=== PATIENT | female | born 1985 | race Caucasian/White ===

== ENCOUNTER 2024-01-05 22:26 | Emergency (ER) | payer BC, SELFPAY ==
[2024-01-05 22:29] VITALS: BP 186/117; PULSE 86; RESP 18; TEMP 36.6; BMI 79.5
--- NOTE | 2024-01-05 22:43 | ED_ITS ---
HPI - General Adult General Time Seen by Provider: 22:43 Date Seen: 01/05/24 Chief complaint: Unspecified Complaint, Adult Stated complaint: weak, high bp Time Seen by Provider: 01/05/24 22:42 Source: patient and RN notes reviewed Mode of arrival: ambulatory Limitations: no limitations History of Present Illness HPI narrative: This very pleasant 38-year-old female is coming in with elevated blood pressures at home currently in early . She is feeling weak, maybe feels a little short of breath. She was checking her blood pressures at home and they were 200 systolic. She has no headache, no chest pain, no neurologic changes. No edema noted. She does note that she had problems with her blood pressure at the end of other pregnancies. She has about 4-6 weeks reportedly. She saw her doctor this week, was given a prescription for labetalol, the pharmacy closed early tonight in she could not get it. She did not started earlier this week when it was prescribed. She does states that her blood pressures have been elevated outside of , before this . Related Data Home Medications Medication Instructions Recorded Confirmed bupropion HCl 150 mg 24 hr tablet, 300 mg PO DAILY 01/05/24 01/05/24 extended release labetalol 100 mg tablet 100 mg PO BID 01/05/24 01/05/24 sertraline 100 mg tablet 100 mg PO DAILY 01/05/24 01/05/24 Allergies Allergy/AdvReac Type Severity Reaction Status Date / Time No Known Drug Allergies Allergy Verified 01/05/24 22:33 Review of Systems Status of ROS: Reports: 6 or more systems reviewed and unremarkable except as noted in History and below PFSH PFSH Social History Smoking Status: Never smoker Do you use any of these nicotine containing products: None Non-prescribed substance use: denies use Exam Const: Vital Signs, click to edit/add: Vital Signs - 24 hr 01/05/24 22:29 01/05/24 22:44 01/05/24 22:45 Temperature 97.9 F Pulse Rate 85 80 Pulse Rate [Pulse Oximeter] 86 Respiratory Rate 18 Blood Pressure Blood Pressure [Ri ght Upper Arm] 186/117 H Pulse Oximetry 96 97 Oxygen Delivery Me thod Room Air 01/05/24 22:46 01/05/24 23:00 01/05/24 23:07 Temperature Pulse Rate 84 83 Pulse Rate [Pulse Oximeter] Respiratory Rate Blood Pressure 178/100 H Blood Pressure [Ri ght Upper Arm] Pulse Oximetry 97 96 97 Oxygen Delivery Me thod This is a 38-year-old female that is alert, interactive, no apparent distress, ambulatory into the ED of her own accord. Pupils equal round reactive to light sclera clear, extraocular muscles intact. Symmetrical facial function, speaking easily on room air. Neck supple, no adenopathy, no thyromegaly masses or nodules. Lungs are clear, good air entry, no wheezing or crackles, able speak in complete sentences, no tachypnea. CV regular rate and rhythm, no murmur, normal S1-S2, no S3-S4. Abdomen is soft, nontender, nondistended, no organomegaly. She has no lower extremity edema. Neurologic status is intact, normal motor and sensory throughout. Documenting provider has reviewed patient's vital signs: yes Course Course ED Course: The patient has chronic hypertension. We will give her a dose of oral labetalol 100 mg here. Will check an EKG, basic labs. She will need to get her labetalol filled and take this as prescribed. Reevaluation(s) Time of Reevaluation #1: 23:33 Reevaluation #1: Did review with patient that her hemoglobin is low at 10.2, will need to talk to her OB about this further. They may want supplemental iron and to follow this closer. We also reviewed that her potassium was mildly low at 3.2, will give her some effervescent potassium. Her potassium should probably be rechecked within the next week. We are just awaiting her troponin, if this comes back normal, will discharge to home. She does have the prescription for the labetalol, it is at [facility] just waiting to be picked up but the pharmacy was closed early tonight. Vital Signs Vital signs: Initial Vital Signs Temperature 97.9 F 01/05/24 22:29 Temperature Source Temporal Artery Scan 01/05/24 22: Pulse Rate 86 01/05/24 22:29 Pulse Rhythm Regular 01/05/24 22:29 Pulse Strength 3+ Normal 01/05/24 22:29 Respiratory Rate 18 01/05/24 22:29 Blood Pressure 186/117 H 01/05/24 22:29 Blood Pressure Mean 140 H 01/05/24 22:29 Oxygen Delivery Method Room Air 01/05/24 22:29 Vital Signs Temperature 97.9 F 01/05/24 22:29 Pulse Rate 86 01/05/24 22:29 Respiratory Rate 18 01/05/24 22:29 Blood Pressure 186/117 H 01/05/24 22:29 Oxygen Delivery Method Room Air 01/05/24 22:29 Temperature 97.9 F 01/05/24 22:29 Pulse Rate 83 01/05/24 23:07 Respiratory Rate 18 01/05/24 22:29 Blood Pressure 178/100 H 01/05/24 23:07 Pulse Oximetry 97 01/05/24 23:07 Oxygen Delivery Method Room Air 01/05/24 22:29 Medications Administered Medications: Generic Name Dose Route Start Last Admin Trade Name Freq PRN Reason Stop Dose Admin Labetalol HCl 100 mg 01/05/24 22:42 01/05/24 23:05 Labetalol Hcl 100 Mg Tablet PO 01/05/24 22:43 100 mg ONCE ONE Administration Potassium Bicarbonate 25 meq 01/05/24 23:36 01/05/24 23:42 Potassium Bicarb 25 Meq Effervescent Tab PO 01/05/24 23:37 25 meq ONCE ONE Administration Medical Decision Making Lab Data Lab results reviewed: Yes I reviewed the patient's lab results Labs: Lab Results 01/05/24 Range/Units 22:48 WBC 7.61 (4.50-11.00) K/uL RBC 4.39 (4.00-5.20) m/uL Hgb 10.2 L (12.0-16.0) gm/dL Hct 33.2 (33.0-51.0) % MCV 76 L (80-100) fL MCH 23 L (26-34) pg MCHC 31 L (32-36) gm/dL RDW Coeff of Brittanie 15.5 (11.5-15.5) % Plt Count 282 (140-440) K/uL Neut % (Auto) 72.0 (42.0-72.0) % Lymph % (Auto) 17.7 L (20-44) % [place] % (Auto) 8.9 (0.0-11.0) % Eos % (Auto) 0.8 (0.0-7.0) % Baso % (Auto) 0.3 (0.0-3.0) % Neut # (Auto) 5.48 (1.7-7.0) K/uL Lymph # (Auto) 1.30 (0.90-2.90) K/uL [place] # (Auto) 0.70 (0.00-0.90) K/UL Eos # (Auto) 0.06 (0.00-0.50) K/uL Baso # (Auto) 0.02 (0.00-0.30) K/uL Abs Immat Gran (auto) 0.02 (0.00-0.30) K/uL Imm/Tot Granulo (auto) 0.3 % Sodium 137 (135-149) mmol/L Potassium 3.2 L (3.6-5.1) mmol/L Chloride 106 (96-114) mmol/L Carbon Dioxide 23 (20-32) mmol/L Anion Gap 8 (7-15) mEq/L BUN 9 (5-24) mg/dL Creatinine 0.7 (0.5-1.5) mg/dL Estimated Creat Clear 93.17 Estimated GFR 113 ml/min Glucose 109 (60-115) mg/dL Calcium 9.0 (8.4-10.6) mg/dL Total Bilirubin 0.2 (0.1-1.5) mg/dL AST 18 (12-35) U/L ALT 14 (4-35) U/L Alkaline Phosphatase 65 (40-150) U/L Troponin I < 0.01 L (0.01-0.04) ng/mL Total Protein 7.7 (6.0-8.3) g/dL Albumin 4.2 (3.3-5.0) g/dL ECG Data Attestation: I personally reviewed and interpreted this ECG as follows: (Normal sinus rhythm, 80 beats per minute. No evidence of any ischemia or infarct. QT corrected 426 milliseconds.) Prior ECG tracings: not available for review Discharge Plan Discharge Clinical Impression: Chronic hypertension affecting , Hypokalemia Anemia Qualifiers: Anemia type: unspecified type Qualified Code(s): D64.9 - Anemia, unspecified Patient Disposition: Home, Self-Care Condition: Stable Instructions: Potassium Content of Foods List (ED), DASH Eating Plan (ED), Hypertension During (ED) Additional Instructions: Need to continue taking the labetalol, please pulp house supervisor at the pharmacy tomorrow. Have your remediation project engineer follow and increase labetalol if needed. You also need to talk to your remediation project engineer about her hemoglobin being 10.2. This will likely need further iron supplementation and closer following through . Your potassium was low at 3.2 here, would have this rechecked within the next 1-2 weeks in clinic. Activity Level: Activity as Tolerated Discharge Diet: Heart Healthy (2 gm sodium, low fat) Prescriptions: No Action sertraline 100 mg tablet 100 mg PO DAILY labetalol 100 mg tablet 100 mg PO BID bupropion HCl 150 mg tablet extended release 24 hr 300 mg PO DAILY Follow Up/Referrals: Kecia Segovia PA-C [Primary Care Provider] - Stand Alone Forms: JasonDB Info Instructions
[2024-01-05 22:44] VITALS: PULSE 85; O2SAT 96
[2024-01-05 22:45] VITALS: PULSE 80; O2SAT 97
[2024-01-05 22:46] VITALS: O2SAT 97
[2024-01-05 23:00] VITALS: PULSE 84; O2SAT 96
[2024-01-05 23:01] LABS: Basophils Absolute Auto 0.02 K/uL (0.00-0.30); Basophils Percent Auto 0.3 % (0.0-3.0); Eosinophils Absolute Auto 0.06 K/uL (0.00-0.50); Eosinophils Percent Auto 0.8 % (0.0-7.0); Hematocrit 33.2 % (33.0-51.0); Hemoglobin* 10.2 gm/dL (12.0-16.0); Immature Granulocytes Abs Auto 0.02 K/uL (0.00-0.30); Immature Granulocytes Pct Auto 0.3 %; Lymphocytes Percent Auto 17.7 % (20-44); Mean Corpuscular HGB Conc 31 gm/dL (32-36); Mean Corpuscular Hemoglobin 23 pg (26-34); Mean Corpuscular Volume 76 fL (80-100); Monocytes Percent Auto 8.9 % (0.0-11.0); Neutrophils Absolute Auto 5.48 K/uL (1.7-7.0); Platelet Count* 282 K/uL (140-440); RDW Coefficient of Variation % 15.5 % (11.5-15.5); Red Blood Count 4.39 m/uL (4.00-5.20); White Blood Count* 7.61 K/uL (4.50-11.00)
[2024-01-05 23:02] LABS: Slide Review Reflex No
[2024-01-05] MEDS: LABETALOL HCL 100 MG TABLET PO (23:05)
[2024-01-05 23:07] VITALS: BP 178/100; PULSE 83; O2SAT 97
[2024-01-05 23:15] LABS: Albumin* 4.2 g/dL (3.3-5.0); Chloride* 106 mmol/L (96-114); Sodium* 137 mmol/L (135-149)
[2024-01-05 23:16] LABS: Potassium* 3.2 mmol/L (3.6-5.1)
[2024-01-05 23:18] LABS: Alkaline Phosphatase* 65 U/L (40-150); Anion Gap 8 mEq/L (7-15); Aspartate Amino Transferase* 18 U/L (12-35); Bilirubin Total* 0.2 mg/dL (0.1-1.5); Blood Urea Nitrogen* 9 mg/dL (5-24); Carbon Dioxide* 23 mmol/L (20-32); Creatinine* 0.7 mg/dL (0.5-1.5); Est. Creatinine Clearance* 93.17; Estimated Glomerular Filt Rate 113 ml/min; Total Protein* 7.7 g/dL (6.0-8.3)
[2024-01-05 23:19] LABS: Alanine Aminotransferase* 14 U/L (4-35); Glucose* 109 mg/dL (60-115)
[2024-01-05 23:33] LABS: Troponin I* < 0.01 ng/mL (0.01-0.04)
[2024-01-05] MEDS: POTASSIUM BICARB 25 MEQ EFFERVESCENT TAB PO (23:42)
== END 2024-01-06 | disposition home or self-care (01) ==
PROVIDERS: Emergency Provider Family Medicine; PCP Student in an Organized Health Care Education/Training Program
DX: O16.1 Unspecified maternal hypertension, first trimester (principal); E87.5 Hyperkalemia
CPT/HCPCS: 36415; 80053; 84484; 85025; 93005; 94761; 99284; A9270

== ENCOUNTER 2024-01-31 12:31 | Outpatient (CLI) | payer BC, SELFPAY ==
--- NOTE | 2024-01-31 12:15 | US_ITS ---
Patient: SAMMIE CASTELLANO Facility:?[facility] Patient ID:?[id number] Site Patient ID:?[id number]. Site :?1985 Study:?US-OB Pelvis TV OB<14wks-01/31/2024 1:30:20 PM Ordering Physician:?aldo Final Report: OB ULTRASOUND INDICATION: Dates and viability. LMP: 11/24/2023. SARAH by LMP: 08/30/2024. GA: 9 w, 5 d. Previous US: No. CRL: 4.9 cm. 11 w 4 d. SARAH: 08/17/2024. FHR: 169 BPM. Gestational sac: 6.5 cm. Yolk sac: 5.6 mm. Right ovary: Within normal limits. 2.8 x 1.4 x 1.4 cm. Left ovary: Within normal limits. 1.9 x 1.1 x 1.4 cm. IMPRESSION: 1. Single viable intrauterine . 2. Measurements are two weeks earlier than clinical dates. Nick Smith M.D. Body/Diagnostic Radiologist [email or web address] TRACEE/luci D& Transcribed: 10:13 ashade verma/Dictated by: Nick Smith MD @ 02/01/2024 8:24:00 AM Signed by:?iNck Smith MD @02/01/2024 4:46:28 PM (Electronic Signature)
== END 2024-01-31 12:32 | disposition home or self-care (01) ==
LOC: US 12:32
PROVIDERS: PCP Student in an Organized Health Care Education/Training Program; Visit Provider Registered Nurse
DX: Z34.91 Encounter for supervision of normal pregnancy, unspecified, first trimester (principal); Z3A.09 9 weeks gestation of pregnancy
CPT/HCPCS: 76817; 82565; 82570; 82728; 83540; 83550; 84156; 84450; 84460; 84520; 84550; 86592; 86703; 86704; 86706; 86762; 86787; 86803; 86850; 86900; 86901; 87086; 87340; 87491; 87591

== ENCOUNTER 2024-02-22 07:00 | Outpatient (CLI) | payer BC, SELFPAY | END 2024-02-22 07:01 | disposition home or self-care (01) | LOC: NFLDREF 02-23 06:45 | PROVIDERS: PCP Student in an Organized Health Care Education/Training Program; Referring Provider Student in an Organized Health Care Education/Training Program; Visit Provider Registered Nurse | DX: O12.12 Gestational proteinuria, second trimester (principal); Z3A.15 15 weeks gestation of pregnancy | CPT/HCPCS: 82570; 84156 ==

== ENCOUNTER 2024-05-09 13:00 | Outpatient (RCR) | payer BC, SELFPAY ==
--- NOTE | 2024-04-25 11:24 | URNOTE ---
Per Availity/predictal, prior auth is not required for [facility] ([id number]). ref #[id number]
--- NOTE | 2024-04-30 13:30 | PC.NURSE ---
Diagnosis: Iron Deficiency Anemia in
[2024-04-30 13:31] VITALS: BP 108/70; PULSE 78; RESP 18; TEMP 36.6; O2SAT 97
[2024-04-30] MEDS: SODIUM CHLORIDE 0.9 % (FLUSH) 10 ML SYRINGE IVF (13:50)
[2024-04-30] MEDS: 0.9 % SODIUM CHLORIDE 250 ml IV (13:50)
[2024-04-30] MEDS: IRON SUCROSE COMPLEX 200 MG in 0.9 % SODIUM CHLORIDE 100 ml 100 ML 440 MG IVPB (13:54)
[2024-04-30 14:12] VITALS: BP 101/63; PULSE 77; RESP 16; O2SAT 96
[2024-04-30 14:46] VITALS: BP 112/72; PULSE 80; O2SAT 96
[2024-05-02 13:46] VITALS: BP 115/72; PULSE 88; RESP 16; TEMP 36.4; O2SAT 95
[2024-05-02] MEDS: SODIUM CHLORIDE 0.9 % (FLUSH) 10 ML SYRINGE IVF (14:00)
[2024-05-02] MEDS: 0.9 % SODIUM CHLORIDE 250 ml IV (14:01)
[2024-05-02] MEDS: IRON SUCROSE COMPLEX 200 MG in 0.9 % SODIUM CHLORIDE 100 ml 100 ML 440 MG IVPB (14:11)
[2024-05-02 14:28] VITALS: BP 111/61; PULSE 79
[2024-05-04 13:30] VITALS: BP 121/81; PULSE 76; RESP 16; TEMP 36.4; O2SAT 95
[2024-05-04] MEDS: SODIUM CHLORIDE 0.9 % (FLUSH) 10 ML SYRINGE IVF (13:47)
[2024-05-04] MEDS: 0.9 % SODIUM CHLORIDE 250 ml IV (13:48)
[2024-05-04] MEDS: IRON SUCROSE COMPLEX 200 MG in 0.9 % SODIUM CHLORIDE 100 ml 100 ML 440 MG IVPB (13:51)
[2024-05-04 14:11] VITALS: BP 111/74; PULSE 79; RESP 16; TEMP 36.4; O2SAT 95
[2024-05-04 14:45] VITALS: BP 109/72; PULSE 74; RESP 14; TEMP 36.3; O2SAT 98
[2024-05-07 14:05] VITALS: BP 109/72; PULSE 77; RESP 18; TEMP 36.8; O2SAT 97
[2024-05-07] MEDS: 0.9 % SODIUM CHLORIDE 250 ml IV (14:25)
[2024-05-07] MEDS: SODIUM CHLORIDE 0.9 % (FLUSH) 10 ML SYRINGE IVF (14:25)
[2024-05-07] MEDS: IRON SUCROSE COMPLEX 200 MG in 0.9 % SODIUM CHLORIDE 100 ml 100 ML 440 MG IVPB (14:25)
[2024-05-07 14:47] VITALS: BP 107/80; PULSE 80; RESP 16; TEMP 36.5; O2SAT 98
[2024-05-07 15:25] VITALS: BP 101/66; PULSE 71; RESP 18; TEMP 36.9; O2SAT 94
[2024-05-09 12:52] VITALS: BP 111/72; PULSE 85; TEMP 36.3; O2SAT 96
[2024-05-09 12:59] VITALS: BP 111/72; PULSE 85; TEMP 36.3; O2SAT 96
[2024-05-09] MEDS: IRON SUCROSE COMPLEX 200 MG in 0.9 % SODIUM CHLORIDE 100 ml 100 ML 440 MG IVPB (13:21)
[2024-05-09 13:40] VITALS: BP 105/69; PULSE 79; RESP 16; TEMP 36.5; O2SAT 96
[2024-05-09 14:15] VITALS: BP 107/68; PULSE 78; RESP 16; TEMP 36.6; O2SAT 98
== END 2024-10-27 23:59 | disposition home or self-care (01) ==
LOC: CCIC 13:00
PROVIDERS: PCP Student in an Organized Health Care Education/Training Program; Visit Provider Clinical Nurse Specialist
DX: O99.019 Anemia complicating pregnancy, unspecified trimester (principal); D50.9 Iron deficiency anemia, unspecified
CPT/HCPCS: 96365; 96374; J1756; J7050

== ENCOUNTER 2024-05-15 09:15 | Outpatient (CLI) | payer BC, SELFPAY | END 2024-05-15 09:16 | disposition home or self-care (01) | LOC: NFLDREF 05-16 10:33 | PROVIDERS: PCP Student in an Organized Health Care Education/Training Program; Referring Provider Student in an Organized Health Care Education/Training Program; Visit Provider Internal Medicine Nephrology | DX: O12.10 Gestational proteinuria, unspecified trimester (principal) | CPT/HCPCS: 82570; 84156 ==

== ENCOUNTER 2024-05-21 13:35 | Outpatient (CLI) | payer BC, SELFPAY | END 2024-05-21 13:36 | disposition home or self-care (01) | LOC: NFLDREF 05-24 10:44 | PROVIDERS: PCP Student in an Organized Health Care Education/Training Program; Referring Provider Student in an Organized Health Care Education/Training Program; Visit Provider Obstetrics & Gynecology | DX: Z34.82 Encounter for supervision of other normal pregnancy, second trimester (principal) | CPT/HCPCS: 86592 ==

== ENCOUNTER 2024-06-08 13:10 | Outpatient (CLI) | payer BC, SELFPAY | END 2024-06-08 13:11 | disposition home or self-care (01) | LOC: NFLDREF 06-10 06:17 | PROVIDERS: PCP Student in an Organized Health Care Education/Training Program; Referring Provider Student in an Organized Health Care Education/Training Program; Visit Provider Internal Medicine Nephrology | DX: O12.10 Gestational proteinuria, unspecified trimester (principal) | CPT/HCPCS: 80069; 87086 ==

== ENCOUNTER 2024-06-12 09:27 | Outpatient (CLI) | payer BC, SELFPAY | END 2024-06-12 09:28 | disposition home or self-care (01) | LOC: NFLDREF 06-15 07:28 | PROVIDERS: PCP Student in an Organized Health Care Education/Training Program; Referring Provider Student in an Organized Health Care Education/Training Program; Visit Provider Internal Medicine Nephrology | DX: O12.13 Gestational proteinuria, third trimester (principal); Z3A.29 29 weeks gestation of pregnancy | CPT/HCPCS: 82570; 84156 ==

== ENCOUNTER 2024-06-26 13:59 | Outpatient (CLI) | payer BC, SELFPAY ==
--- NOTE | 2024-06-26 14:00 | CRLHL7_ITS ---
For Patients: As a result of the Century Cures Act, medical imaging exams and procedure reports are released immediately into your electronic medical record. You may view this report before your referring provider. If you have questions, please contact your health care provider. INDICATION: BPP and Growth TECHNIQUE: Real time dotson scale imaging of the fetus was performed. COMPARISON: 01/31/2024 FINDINGS: Sonographic imaging demonstrates a single living intrauterine gestation. Fetus demonstrates a regular cardiac rate of 147 beats per minute. Fetus has a transverse position, head maternal right. The placenta lies anteriorly. Amniotic fluid volume appears normal and there is a single deepest pocket of 7.3 cm. The estimated weight is 2178gm which lies at the 70th %. BPD 95th percentile. HC 86th percentile. AC is 71st percentile. FL 42nd percentile. The fetus was active and demonstrated normal breathing movements. There was normal flexion and extension of the trunk and extremities. IMPRESSION: Normal biophysical profile score 8/8. Sonographic gestational age 34 weeks 0 days and a sonographic due date of 08/07/2024. Sonographic age 11 days ahead of the clinical age. Estimated weight 70th percentile. Abdominal circumference 71st percentile. Dictated by Ricky Clifford MD @ 06/27/2024 12:02:10 PM (Electronically Signed)
== END 2024-06-26 14:00 | disposition home or self-care (01) ==
LOC: US 13:59
PROVIDERS: PCP Student in an Organized Health Care Education/Training Program; Visit Provider Obstetrics & Gynecology
DX: O10.913 Unspecified pre-existing hypertension complicating pregnancy, third trimester (principal); Z3A.34 34 weeks gestation of pregnancy
CPT/HCPCS: 76816; 76819; 82565; 82570; 84156; 84450; 84460; 84520; 84550

== ENCOUNTER 2024-07-03 15:00 | Outpatient (CLI) | payer BC, SELFPAY ==
--- NOTE | 2024-07-03 14:45 | CRLHL7_ITS ---
For Patients: As a result of the Century Cures Act, medical imaging exams and procedure reports are released immediately into your electronic medical record. You may view this report before your referring provider. If you have questions, please contact your health care provider. INDICATION: Nonreactive NST TECHNIQUE: Ultrasound OB pelvis transabdominal. Real-time dotson-scale imaging of the fetus was performed without stress testing. COMPARISON: Ob ultrasound 06/26/2024 FINDINGS: heart rate: Regular, 155 bpm. position: Cephalic. Specific images for motion, tone and breathing movements were not saved. Amniotic fluid volume single deepest pocket 7.3 cm, 2/2. motion 2/2. tone 2/2. breathing movements 2/2. Anterior placenta. Cervix is closed. IMPRESSION: Cruz intrauterine with cardiac activity. Normal biophysical profile score of 8/8. Single deepest pocket measures 7.3 centimeters. Dictated by Reyna Mukherjee MD @ 07/05/2024 7:38:09 AM (Electronically Signed)
== END 2024-07-03 15:01 | disposition home or self-care (01) ==
PROVIDERS: PCP Student in an Organized Health Care Education/Training Program; Visit Provider Obstetrics & Gynecology
DX: O28.8 Other abnormal findings on antenatal screening of mother (principal)
CPT/HCPCS: 76819; 82565; 82570; 84156; 84450; 84460; 84520

== ENCOUNTER 2024-07-09 14:35 | Outpatient (CLI) | payer BC, SELFPAY ==
--- NOTE | 2024-07-09 14:45 | CRLHL7_ITS ---
For Patients: As a result of the Century Cures Act, medical imaging exams and procedure reports are released immediately into your electronic medical record. You may view this report before your referring provider. If you have questions, please contact your health care provider. INDICATION: Hypertension. COMPARISON: OB ultrasound 07/03/2024. TECHNIQUE: Ultrasound OB pelvis biophysical profile. Real time dotson scale imaging of the fetus was performed without non-stress testing. FINDINGS: Sonographic imaging demonstrates a single living intrauterine gestation. The fetus demonstrates a regular cardiac rate of 142 beats per minute. The fetus has a cephalic orientation. The placenta lies anteriorly. Single deepest pocket measures 5.8 cm (2/2). The fetus was active (2/2). There was normal flexion and extension of the trunk and extremities (2/2). The fetus demonstrated normal breathing movements (2/2). IMPRESSION: Normal biophysical profile score 8 out of 8. Dictated by Le Aleman MD @ 07/10/2024 2:49:54 AM (Electronically Signed)
== END 2024-07-09 14:36 | disposition home or self-care (01) ==
LOC: US 14:35
PROVIDERS: PCP Student in an Organized Health Care Education/Training Program; Visit Provider Obstetrics & Gynecology
DX: O99.213 Obesity complicating pregnancy, third trimester (principal); O10.913 Unspecified pre-existing hypertension complicating pregnancy, third trimester; Z3A.34 34 weeks gestation of pregnancy
CPT/HCPCS: 76819; 82565; 82570; 84156; 84450; 84460; 84520

== ENCOUNTER 2024-07-17 14:36 | Outpatient (CLI) | payer BC, SELFPAY ==
--- OUTSIDE RECORDS SUMMARY | 2024-07-17 14:48 | XMS_ITS | Encounter Summary ---
Author Organization [facility] Address [address] [place] [address] Care Team Providers Care Coordinator Of Health Services Name Role Phone Fior Mejia MD Unavailable Bee Vicente MD Primary Care Provider [phone] Bee Vicente MD Unavailable [phone] Flori De Luna MD Unavailable [phone] Kecia Segovia Primary Care Provider [phone] Encounter Details Date Type Department Care Team (Late st Contact Info) Description 02/03/2024 My[facility] Medical Advice [address] [address] Angelia Marte, WASTE TRANSPORTATION TECHNICIAN Social History Tobacco Use Types Packs/Day Years Used Date Smoking Tobacco: Never Smokeless Tobacco: Never Alcohol Use Standard Drinks/Week Comments Not Currently 0 (1 standard drink = 0.6 oz pur e alcohol) Social Connection and Isolat ion Panel [NHANES] Answer Date Recorded In a typical week, how many times do you talk on the phone with family, friends, or neighbors? More than three times a week 06/04/2022 How often do you get togethe r with friends or relatives? Once a week 06/04/2022 How often do you attend chur ch or muslim services? Never 06/04/2022 Do you belong to any clubs o r organizations such as holiness groups, unions, fraternal or athletic groups, or school groups? No 06/04/2022 Attends Club or Organization Meetings Not on mitchell e 06/04/2022 Are you , , di vorced, , never , or living with a partner? 06/04/2022 AUDIT-C Answer Date Recorded Q1: How often do you have a drink containing alcohol? Never 06/04/2022 Q2: How many drinks containi ng alcohol do you have on a typical day when you are drinking? Patient does not drink Q3: How often do you have si x or more drinks on one occasion? Never 06/04/2022 Overall Financial Resource Strain (CARDIA) Answe r Date Recorded How hard is it for you to pa y for the very basics like food, housing, medical care, and heating? Somewhat hard 06/04/2022 PHQ-2 Answer Date Recorded PHQ-2 Score 3 06/04/2022 [facility] - Occupational Stress Questionnaire Answer Date Recorded Do you feel stress - tense, restless, nervous, or anxious, or unable to sleep at night because your mind is troubled all the time - these days? Rather much 06/04/2022 Exercise Vital Sign Answer Date Recorde d On average, how many days pe r week do you engage in moderate to strenuous exercise (like a brisk walk)? 2 days 06/04/2022 On average, how many minutes do you engage in exercise at this level? 30 min 06/04/2022 Hunger Vital Sign Answer Date Recorded Within the past 12 months, y ou worried that your food would run out before you got the money to buy more. Never true 06/04/20 22 Within the past 12 months, t he food you bought just didn't last and you didn't have money to get more. Never true 06/04/2022 PRAPARE - Transportation Answer Date Re corded In the past 12 months, has l ack of transportation kept you from medical appointments or from getting medications? No 05/11 In the past 12 months, has l ack of transportation kept you from meetings, work, or from getting things needed for daily living? No 06/04/2022 Housing Stability Vital Sign Answer Oh e Recorded In the last 12 months, was t here a time when you were not able to pay the mortgage or rent on time? Yes 06/04/2022 In the last 12 months, how many places have you lived? 1 06/04/2022 In the last 12 months, was t here a time when you did not have a steady place to sleep or slept in a snf (including now)? No 06/04/2022 Adolescent Education Answer Date Record ed Getting School Help Needed Not on file 07/01 Sex and Gender Information Value Date Recorded Sex Assigned at Female 03/05/2021 2:58 PM CDT Gender Identity Female 03/05/2021 2:58 PM CDT Sexual Orientation Straight 03/05/2021 2: 58 PM CDT documented as of this encounter Plan of Treatment Not on file documented as of this encounter Visit Diagnoses Not on filedocumented in this encounter Additional Health Concerns Assessment Noted Time PHQ-9 Depression Total Score: 8 06/04/20 10:15 AM CDT documented as of this encounter Care Teams Coordinator Of Health Services Relationship Specialty [place] [address] [place] [address] PCP - General Family Medicine 04/16/22 03/16/24 Kecia Segovia PA [address] [place] [address] PCP - General 03/17/24 Fior Mejia MD [address] [place] [id number] Assigned OBGYN Provider 02/07/22 [place] [address] [place] [address] Assigned PCP 04/17/22 Flori De Luna MD [address] [place] [id number] Physician all source intelligence technician 01/09/24 documented as of this encounter
--- OUTSIDE RECORDS SUMMARY | 2024-07-17 14:48 | XMS_ITS | Encounter Summary ---
Author Organization [place] Address [address] [place] [address] Care Team Providers Care Retail Manager Name Role Phone Fior Mejia MD Unavailable Bee Vicente MD Unavailable [phone] Flori De Luna MD Unavailable [phone] Kecia Segovia Primary Care Provider [phone] Reason for Referral * Diagnostic Imaging Ultrasound (Routine) - Pending Review Specialty Diagnoses / Procedures Referred By Contac t Referred To Contact Radiology. Diagnoses Encounter for follow-up ultrasound of anatomy Procedures [facility] US Comprehensive Single F/U Jackie Cook MD [address] [facility] [employer] [address] [address] Referral ID Status Reason Start Date Expiration Date V isits Requested Visits Authorized [id number] Pending Review 03/22/2024 03/22/2025 1 1 Reason for Visit * Diagnostic Imaging Ultrasound (Routine) - Pending Review Specialty Diagnoses / Procedures Referred By Contac wilson Referred To Contact Radiology. Diagnoses Encounter for follow-up ultrasound of anatomy Procedures [facility] US Comprehensive Single F/U Jackie Cook MD [address] [place] [address] Referral ID Status Reason Start Date Expiration Date V isits Requested Visits Authorized [id number] Pending Review 03/22/2024 03/22/2025 1 1 Encounter Details Date Type Department Care Team (Latest Contact Info) Description 04/16/2024 8:45 AM CDT - 04/16/2024 11:59 PM CDT Hospital Encounter [facility] [address] [place] [address] Maxx Luu MD [address] [place] [address] [address] [place] [address] Encounter for follow-up ultrasound of anatomy Discharge Disposition: Home or Self Care Social History Tobacco Use Types Packs/Day Years [...] 06/04/2022 How often do you attend chur or islam services? Never 06/04/2022 Do you belong to any clubs o r organizations such as judaism groups, unions, fraternal or athletic groups, or [...] Answer Date Recorded PHQ-2 Score 3 06/04/2022 [facility] - Occupational Stress Questionnaire Answer Date Recorded [...] place to sleep or slept in a intermediate (including now)? No 06/04/2022 Adolescent Education Answer Date Record ed Getting School Help Needed Not on file 07/01 Estimated Date of Delivery Comme nts Yes 08/17/2024 Based on Ultraso und Sex and Gender Information Value Date Recorded Sex Assigned at Female 03/05/2021 2:58 PM CDT Gender Identity Female 03/05/2021 2:58 PM CDT Sexual Orientation Straight 03/05/2021 2: 58 PM CDT documented as of this encounter Medications at Time of Discharge Medication Sig Dispensed Refills Start Date End Date buPROPion (WELLBUTRIN XL) 150 MG 24 hr tabletIndications:KODY (generalized anxiety disorder) Take 1 tablet (150 mg) by mouth every morning 90 tablet 05/23/2023 labetalol (NORMODYNE) 100 MG tablet Take 100 mg by mouth 01/04/2024 Vit-Fe Fumarate-FA (PNV PLUS MULTIVITAMIN) 27-1 MG TABS per tablet Take 1 tablet by mouth daily sertraline (ZOLOFT) 100 MG tabletIndications:KODY (generalized anxiety disorder) Take 1 tablet (100 mg) by mouth daily 90 tablet 06/21/2023 documented as of this encounter Plan of Treatment Not on file documented as of this encounter Procedures Procedure Name Priority Date/Time Associated Diagnosis Comments [facility] US COMPREHENSIVE SINGLE F/U Routine 04/16/2024 9:20 AM CDT Encounter for follow-up ultrasound of anatomy documented in this encounter Results * [facility] US Comprehensive Single F/U (04/16/2024 9:20 AM CDT) Anatomical Region Laterality Modality Ultrasound 04/16/2024 8:43 AM CDT Impressions 04/16/2024 9:40 AM CDT IMPRESSION ----- 1. Cruz at 22w 3d gestational age. 2. The remaining anatomic survey was completed, no anomalies commonly detected by ultrasound were identified within the limits of ultrasound. 3. Growth parameters and estimated weight were consistent with gestational age predicted by assigned SARAH. 4. The amniotic fluid volume appeared normal. Narrative 04/16/2024 9:40 AM CDT ?Comp Follow Up ----- Pat. Name: SAMMIE LAFLEUR ? Study Date: ??04/16/2024 8:43am Pat. NO: ??[id number] ?Referring ??MD: AVIS ANGELO Site: ? Infrastructure Architect: Miriam Perla RDMS : ??1985 ?Age: ?? 39 ----- INDICATION ----- Reevaluate growth and suboptimal anatomy. AMA 39 years. Chronic hypertension on Labetalol. METHOD ----- Transabdominal ultrasound examination. View: Sufficient ----- Cruz . Number of fetuses: 1 DATING ----- ? Date ?Details ?Gest. age ?SARAH LMP ?11/24/2023 ?Cycle: LMP date uncertain ? 20 w + 4 d ? 08/30/2024 Previous U/S ?01/31/2024 ?GA, GA 11 w + 4 d ?22 w + 3 d ? 08/17/2024 U/S ? 04/16/2024 ?based upon AC, BPD, Femur, HC ? 22 w + 2 d ? 08/18/2024 Assigned dating ?based on ultrasound (GA), selected on 04/16/2024 ?22 w + 3 d ? 08/17/2024 GENERAL EVALUATION ----- Cardiac activity present. FHR 137 bpm. movements: present. Presentation: breech Placenta: anterior, no previa > 2 cm from internal os Umbilical cord: 3 vessel cord Amniotic fluid: Amount of AF: normal. MVP 6.0 cm BIOMETRY ----- BPD ? 54.8 ?mm ? 22w 5d ?[place]ell CABRERA ? 72.7 ?mm ? 22w 3d ?Nicolaides HC ? 204.5 ?mm ? 22w 4d ? Hadlock Cerebellum tr ?23.1 ?mm ? 21w 4d ? Nicolaides AC ? 173.2 ?mm ? 22w 2d ?36% ?Hadlock Femur ?36.6 ?mm ? 21w 4d ? Hadlock Weight Calculation: EFW ?473 ? g ? 26% ?Hadlock EFW (lb,oz) ?1 lb 1 ?oz EFW by ? Hadlock ([id number]) Head / Face / Neck Biometry: Fiberglass Autobody Repairer ?5.1 ? mm CM ? 4.1 ? mm ANATOMY ----- The following structures appear normal: Head / Neck ? Cranium. Head size. Head shape. Lateral ventricles. Midline falx. Cavum septi pellucidi. Cerebellum. Cisterna magna. Thalami. Face ? Lips. Profile. Nose. Heart / Thorax ?4-chamber view. RVOT view. LVOT view. 5-isnrpu-grmsutw view. Situs. Aortic arch view. Ductal arch view. ? Diaphragm. Abdomen ? Stomach. Kidneys. Bladder. Spine ?Cervical spine. Thoracic spine. Lumbar spine. Sacral spine. sex: male. MATERNAL STRUCTURES ----- Cervix ?Visualized ? Appearance: Appears Closed ? Approach - Transabdominal: Cervical length 50.1 mm Right Ovary ?Not examined Left Ovary ?Not examined RECOMMENDATION ----- Thank-you for referring your patient for ultrasound assessment. She is struggling with iron deficiency anemia which is not improving with oral iron. I encouraged her to discuss a possible iron infusion as an alternative, with her primary OB team. I discussed the findings on today's ultrasound with the patient. I reviewed the limitations of ultrasound. Further ultrasound studies will include serial growth and BPPs as previously recommended, and she plans to do these in [place]. Return to primary provider for continued care. If you have questions regarding today's evaluation or if we can be of further service, please contact the [facility]. anomalies may be present but not detected Procedure Note Maxx Luu MD - 04/16/2024 Comp Follow Up ----- Pat. Name: SAMMIE LAFLEUR Study Date: 04/16/2024 8:43am Pat. NO: [id number] Referring MD: AVIS ANGELO Site: Infrastructure Architect: Miriam Perla RDMS : 1985 Age: 39 ----- INDICATION ----- Reevaluate growth and suboptimal anatomy. AMA 39 years. Chronic hypertension on Labetalol. METHOD ----- Transabdominal ultrasound examination. View: Sufficient ----- Cruz . Number of fetuses: 1 DATING ----- DateDetailsGest. age SARAH LMP 11/24/2023ycle: LMP date [id number] w + 4 d 08/30/2024 Previous U/S 01/31/2024 GA, GA11 w + 4 d22 w + 3 d 08/17/2024 U/S 04/16/2024ased upon AC, BPD, Femur, HC22 w + 2 d 08/18/2024 Assigned dating based on ultrasound (GA), selected w + 3 d 08/17/2024 GENERAL EVALUATION ----- Cardiac activity present. FHR 137 bpm. movements: present.Presentation: breech Placenta: anterior, no previa > 2 cm from internal os Umbilical cord: 3 vessel cord Amniotic fluid: Amount of AF: normal. MVP 6.0 cm BIOMETRY ----- BPD 54.8mm 22w 5dHadlock OFD 72.7mm 22w 3dNicolaides HC 204.5mm 22w 4dHadlock Cerebellum tr 23.1mm 21w 4dNicolaides AC 173.2mm 22w 2d 36%Hadlock Femur 36.6mm 21w 4dHadlock Weight Calculation: EFW 473g 26%Hadlock EFW (lb,oz) 1 lb 1oz EFW by Cordell([id number]) Head / Face / Neck Biometry: Fiberglass Autobody Repairer 5.1mm CM 4.1mm ANATOMY ----- The following structures appear normal: Head / Neck Cranium. Head size. Head shape.Lateral ventricles. Midline falx. Cavum septi pellucidi. Cerebellum.Cisterna magna. Thalami. Face Lips. Profile. Nose. Heart / Thorax 4-chamber view. RVOT view. LVOT view.3-njcyep-kitvzin view. Situs. Aortic arch view. Ductal arch view. Diaphragm. Abdomen Stomach. Kidneys. Bladder. Spine Cervical spine. Thoracic spine.Lumbar spine. Sacral spine. sex: male. MATERNAL STRUCTURES ----- Cervix Visualized Appearance: Appears Closed Approach - Transabdominal:Cervical length 50.1 mm Right Ovary Not examined Left Ovary Not examined RECOMMENDATION ----- Thank-you for referring your patient for ultrasound assessment. She is struggling with iron deficiency anemia which is not improving withoral iron. I encouraged her to discuss a possible iron infusion as analternative, with her primary OB team. I discussed the findings on today's ultrasound with the patient. Ireviewed the limitations of ultrasound. Further ultrasound studies will include serial growth and BPPs aspreviously recommended, and she plans to do these in [place]. Return to primary provider for continued care. If you have questions regarding today's evaluation or if we can be offurther service, please contact the [facility]. anomalies may be present but not detected IMPRESSION ----- 1. Cruz at 22w 3d gestational age. 2. The remaining anatomic survey was completed, no anomaliescommonly detected by ultrasound were identified within the limits ofprenatal ultrasound. 3. Growth parameters and estimated weight were consistent withgestational age predicted by assigned SARAH. 4. The amniotic fluid volume appeared normal. Jackie Cook MD IM [facility] US ORDERABLE S documented in this encounter Visit Diagnoses Diagnosis Encounter for follow-up ultrasound of anatomy documented in this encounter Additional Health Concerns Assessment Noted Time PHQ-9 Depression Total Score: 8 06/04/20 22 10:15 AM CDT documented as of this encounter Care Teams Retail Manager Relationship Specialty Start Date End Date Kecia Segovia PA [address] [place] [address] PCP - General 03/17/24 Fior Mejia MD [address] [facility] [address] [place] [address] Assigned OBGYN Provider 02/07/22 [place] [address] [place] [address] Assigned PCP 04/17/22 Flori De Luna MD [address] [place] [address] Physician layout mechanic 01/09/24 documented as of this encounter
--- OUTSIDE RECORDS SUMMARY | 2024-07-17 14:48 | XMS_ITS | Clinical Summary ---
[facility] Address [address], [place] [address] Care Team Providers Care Record Cutter Name Role Phone Bee Araiza APRN, CNP Primary Care Provide r Source Comments You are receiving this document as you are listed as the primary care provider,follow-up provider, or the patient has been referred to you for consultation.This is in compliance with the Medicare andOur [facility] Hospitalcaid EHR Incentive Program,which states Providers who transition their patient to another setting of careor provider of care or refers their patient to another provider of care shouldprovide summary care record for each transition of care or referral. [facility] Allergies No known active allergies Medications Medication Sig Dispensed Refills Start Date End Date Status sertraline (ZOLOFT) 100 MG tablet Take 1 Tablet (100 mg) by mouth daily. 90 Tablet 3 02/11/2023 Active buPROPion (WELLBUTRIN XL) 150 MG 24 hour release tablet take 2 tablets by mouth daily 180 Tablet 05/07/2024 Active Active Problems Problem Noted Date Diagnosed Date KODY (generalized anxiety disorder) 02/11/2023 Current mild episode of major depressive disorde r 02/11/2023 Encounters Date Type Department Care Team Description [facility] [address] [facility] [place], [place] [address] Bee Araiza APRN, CNP Refill (buPROPion (WELLBUTRIN XL) 150 MG 24 hour release tablet [Pharmacy Med Name: BUPROPION XL 150MG TABLETS (24 H)]) from Last 3 Months Immunizations Name Administration Dates Next Due DTaP 11/09/2005 Hdcv - Rabies Vaccine 03/04/2014,02/11/2014 Influenza IIV4 (Quadrivalent ) 0.5mL (08520) 08/30/2022,10/06/2020,07/12/2019,2017,08/11/2017,08/19/2016,07/21/2015 Influenza, Unspecified Formulation 10/01/2002 Pfizer Bivalent 12+ 08/30/2022 Pfizer Monovalent 12+ Purple Top 09/17/2021,01/09,01/13/2021 Tdap 11/13/2019,08/11/2017,07/08/2015 Family History Medical History Relation Name Comments Depression Mother Mayi Heart Disease Mother Mayi Atrial fib, hy pertension Hypertension Mother Mayi Asthma Brother 1 Juan Depression Brother 2 Gen Asthma Maternal Grandmother Marlene Relation Name Status Comments Mother aMyi Brother 1 Juan Brother 2 Gen Maternal Grandmother Marlene Social History Tobacco Use Types Packs/Day Years Used Date Smoking Tobacco: Never Passive Smoke Exposure: Never Smokeless Tobacco: Never Alcohol Use Standard Drinks/Week Comments Never 0 (1 standard drink = 0.6 oz pur e alcohol) PHQ-2 Answer Date Recorded PHQ-2 Score 2 08/03/2023 Financial Resource Strain Answer Date R ecorded Is it hard for you to pay fo r the very basics like food, housing, medical care or heating? Yes 01/03/2023 Food Insecurity Answer Date Recorded Does your food run out before you have the money to buy more? No 01/03/2023 Transportation Needs Answer Date Record ed Does a lack of transportatio n keep you from your medical appointments or from getting your medications? No 023 Sex and Gender Information Value Date Recorded Sex Assigned at Not on file Gender Identity Not on file Sexual Orientation Not on file Last Filed Vital Signs Vital Sign Reading Time Taken Comments Blood Pressure 146/106 02/11/2023 8:28 AM CDT 148/106 p.80, 144/106 p.78 Pulse 79 02/11/2023 8:28 AM CDT Temperature - - Respiratory Rate - - Oxygen Saturation - - Inhaled Oxygen Concentration - - Weight 95.3 kg (210 lb) 02/11/2023 8:18 AM CDT Height 165.1 cm (5' 5) 02/11/2023 8:18 AM CDT Body Mass Index 34.95 02/11/2023 8:18 AM CDT Plan of Treatment Health Maintenance Due Date Last Done Comments Hep C Screening (Preventive Services) 1985 Mammogram 1984 HIV Screening (Preventive Services) 2000 HepB (1) 2003 COVID-19 Vaccine ( season) 2024 08/30/2022, 09/17/2021, 02/03/2021, Additional history exists Influenza (#1) 2024 08/30/2022, 09/10, 07/12/2019, Additional history exists Adult Preventive Visit 02/11/2025 02/11/2023 Cervical Cancer Screening 02/05/2027 02/05/2022 (Com pleted) DTaP/Tdap/Td (5 - Tdap) 11/13/2029 11/13/19, 08/11/2017, 07/08/2015, Additional history exists Zoster/Shingles (1 of 2) 2034 HPV Vaccine Aged Out No longer eligi ble based on patient's age to complete this topic HepA Aged Out No longer eligi ble based on patient's age to complete this topic Hib Aged Out No longer eligi ble based on patient's age to complete this topic IPV (Polio) Aged Out No longer eligi ble based on patient's age to complete this topic Infant RSV Aged Out No longer eligi ble based on patient's age to complete this topic MCV4 Aged Out No longer eligi ble based on patient's age to complete this topic Pneumococcal Aged Out No longer eligi ble based on patient's age to complete this topic Care Teams Record Cutter Relationship Specialty Start Date End Date Bee Araiza APRN, CATTLE RANCHER [address] [place] [address] PCP - General Nurse Practitioner 02/11/23
--- OUTSIDE RECORDS SUMMARY | 2024-07-17 14:48 | XMS_ITS | Clinical Summary ---
Author Organization [facility] Address [address] [place] [address] Care Team Providers Care Events Intern Name Role Phone Fior Mejia MD Unavailable Bee Vicente MD Unavailable [phone] Flori De Luna MD Unavailable [phone] Kecia Segovia Primary Care Provider [phone] Allergies No known active allergies Medications Medication Sig Dispensed Refills Start Date End Date Status buPROPion (WELLBUTRIN XL) 150 MG 24 hr tabletIndications:G AD (generalized anxiety disorder) Take 1 tablet (150 mg) by mouth every morning 90 tablet 05/23/2023 Active Additional Information Patient taking differently: 300 mgOral EVERY MORNING, Reported on 07/20/2023 sertraline (ZOLOFT) 100 MG tabletIndications:G AD (generalized anxiety disorder) Take 1 tablet (100 mg) by mouth daily 90 tablet 06/21/2023 Active Vit-Fe Fumarate-FA (PNV PLUS MULTIVITAMIN) 27-1 MG TABS per tablet Take 1 tablet by mouth daily Active labetalol (NORMODYNE) 100 MG tablet Take 100 mg by mouth 01/04/2024 Active Active Problems Problem Noted Date Diagnosed Date Pelvic pain in female 04/16/2022 KODY (generalized anxiety disorder) 03/13/2021 Estimated Date of Delivery Comme nts Yes 08/17/2024 Based on Ultraso und Resolved Problems Problem Noted Date Diagnosed Date Resolved Date Supervision of high-risk 07/20/2023 02/02/2024 AMA (advanced maternal age) multigravida 35+ 02/02/2024 Pain of right upper arm 03/13/202105/11 Fatigue, unspecified type 03/13/2021 Encounters Date Type Department Care Team Description 04/16/2024 9:15 AM CDT Office Visit [facility] [place] [address] [address] [place] [id number] Maxx Luu MD Multigravida of advanced maternal age in second trimester (Primary Dx); Maternal hypertension in second trimester 04/16/2024 8:45 AM CDT - 04/16/2024 11:59 PM CDT Hospital Encounter [facility] [place] [address] [place] [id number] Maxx Luu MD Encounter for follow-up ultrasound of anatomy Discharge Disposition: Home or Self Care from Last 3 Months Immunizations Name Administration Dates Next Due COVID-19 MONOVALENT 12+ (Pfizer) 02/03/2021,04/0 03/2021 Influenza Vaccine >6 months,quad, PF ,07/12/2019,07/26/2018, 017,08/19/2016,07/21/2015 Rabies Vaccine 03/04/2014,02/11/2014 TDAP (Adacel,Boostrix) 11/13/2019,08/11/2017, TDAP Vaccine (Adacel) 11/13/2019,08/11/2017,06/11 Family History Medical History Relation Comments No Known Problems Father No Known Problems Mother Relation Status Comments Father Alive Mother Alive Social History Tobacco Use Types Packs/Day Years Used Date Smoking Tobacco: Never Smokeless Tobacco: Never Tobacco Cessation:Counseling Given: Not Answered Alcohol Use Standard Drinks/Week Comments Not Currently [...] often do you attend chur ch or druze services? Never 06/04/2022 Do you belong to [...] Answer Date Recorded PHQ-2 Score 3 06/04/2022 [facility] of Occupat ional [facility] - Occupational Stress Questionnaire Answer Date Recorded [...] Orientation Straight 03/05/2021 2: 58 PM CDT Last Filed Vital Signs Vital Sign Reading Time Taken Comments Blood Pressure 130/87 06/04/2022 10:24 AM CDT Pulse 87 06/04/2022 10:24 AM CDT Temperature 36.7 ??C (98.1 ??F) 06/04/2022 10:24 AM C DT Respiratory Rate 14 06/04/2022 10:24 AM CDT Oxygen Saturation 96% 05/19/2021 10:05 AM CDT Inhaled Oxygen Concentration - - Weight 86.6 kg (191 lb) 06/04/2022 10:24 AM CDT Height 165.1 cm (5' 5) 06/04/2022 10:24 AM CDT Body Mass Index 31.78 06/04/2022 10:24 AM CDT Plan of Treatment Health Maintenance Due Date Last Done Comments MAMMO SCREENING 1985 HEPATITIS B IMMUNIZATION (1 of 3 - 19+ 3-dose series) 2003 ANNUAL REVIEW OF HM ORDERS 06/04/2023 06/04/2022 PHQ-2 (once per calendar year) 2023 06/04/2022, 06/04/2022, 05/13/2022, Additional history exists MATERNAL SCREENING DISCUSSION 01/20/2024 07/25/2019 OBGCT (OB) 04/27/2024 COVID-19 Vaccine ( season) 2024 01/04/2024, 08/30/2022, 09/17/2021, Additional history exists INFLUENZA VACCINE (#1) 2024 , 10/06/2020, 07/12/2019, Additional history exists RSV VACCINE (1 - Risk 1-dose series) 06/22/2024 GROUP B STREP SCREENING 07/20/2024 YEARLY PREVENTIVE VISIT 01/03/2025 01/04/20 24, 02/11/2023, 06/04/2022 GLUCOSE 01/04/2027 01/05/2024, 04/06/2021 HPV TEST 02/05/2027 02/05/2022, 03/10, 03/23/2017 PAP 02/05/2027 02/05/2022, 03/10, 03/23/2017, Additional history exists ADVANCE CARE PLANNING 06/04/2027 06/04/2022 LIPID 06/04/2027 06/04/2022 DTAP/TDAP/TD IMMUNIZATION (8 - Td or Tdap) 11/13/2029 11/13/2019, 11/13/2019, 08/11/2017, Additional history exists HEPATITIS C SCREENING Discontinued 01/31/2024 HIV SCREENING Discontinued 01/31/2024 HPV IMMUNIZATION Aged Out No longer e ligible based on patient's age to complete this topic MENINGITIS IMMUNIZATION Aged Out No l onger eligible based on patient's age to complete this topic Pneumococcal Vaccine: Pediatrics (0 to 5 Years) and At-Risk Patients (6 to 64 Years) Aged Out No longer eligible based on patient's age to complete this topic RSV MONOCLONAL ANTIBODY Aged Out No l onger eligible based on patient's age to complete this topic Procedures Procedure Name Priority Date/Time Associated Diagnosis Comments [facility] COMPREHENSIVE SINGLE F/U Routine 04/16/2024 9:20 AM CDT Encounter for follow-up ultrasound of anatomy ABSTRACT HIV Routine 01/31/2024 2:49 PM CDT HEPATITIS C (HIM EXTERNAL RESULT) Routine 01/31/2024 2:49 PM CDT GLUCOSE (EXTERNAL RESULT) Routine 01/05/2024 10:48 PM CDT LIPID REFLEX TO DIRECT LDL PANEL Routine 06/04/2022 11:12 AM CDT Routine general medical examination at a [facility] care facility GYNECOLOGIC CYTOLOGY Routine 02/05/2022 3:37 PM CDT Screening for cervical cancer HPV HIGH RISK TYPES DNA CERVICAL Routine 02/05/2022 3:37 PM CDT Screening for cervical cancer INVITAE NON-INVASIVE SCREENING Routine 07/25/2019 12:09 PM CDT related condition, antepartum Supervision of elderly multigravida in second trimester Abnormal biochemical finding on screening of mother Abnormal ultrasound from Last 3 Months or Most Recently Relevant to Health Maintenance Results * [facility] Comprehensive Single F/U (04/16/2024 9:20 AM CDT) [...] ? Study Date: ??04/16/2024 8:43am Pat. NO: ??[id number] ?Referring ??MD: AIVS ANGELO Site: ? [employer] Program Manager: Miriam Perla RDMS : ??1985 ?Age: ?? [...] ?1 lb 1 ?oz EFW by ? Cordell ([id number]) Head / Face / Neck Biometry: Echometer Engineer ?5.1 ? mm CM ? 4.1 ? mm ANATOMY ----- The following structures appear normal: Head / Neck ? Cranium. Head size. Head shape. Lateral ventricles. Midline falx. Cavum septi pellucidi. Cerebellum. Cisterna magna. Thalami. Face ? Lips. Profile. Nose. Heart / Thorax ?4-chamber view. RVOT view. LVOT view. 2-etnzjz-mlerzek view. Situs. Aortic arch view. Ductal arch [...] and she plans to do these in [place]. Return to primary provider for continued care. If you have questions regarding today's evaluation or if we can be of further service, please contact the [facility]. anomalies may be present but not detected Procedure Note Maxx Luu MD - 04/16/2024 Comp Follow Up ----- Pat. Name: SAMMIE LAFLEUR Study Date: 04/16/2024 8:43am Pat. NO: [id number] Referring MD: AVIS ANGELO Site: [facility] Program Manager: Miriam Perla RDMS : 1985 Age: 39 ----- INDICATION ----- Reevaluate growth and suboptimal anatomy. AMA 39 years. Chronic hypertension on Labetalol. METHOD ----- Transabdominal ultrasound examination. View: Sufficient ----- Cruz . Number of fetuses: 1 DATING ----- DateDetailsGest. age SARAH LMP 11/24/2023ycle: LMP date [id number] w + 4 d 08/30/2024 Previous U/S 01/31/2024 GA, GA11 w + 4 d22 w + 3 d 08/17/2024 U/S 04/16/2024ased upon AC, BPD, Femur, HC22 w + 2 d 08/18/2024 Assigned dating based on ultrasound (GA), selected on w + 3 d 08/17/2024 GENERAL EVALUATION [...] EFW (lb,oz) 1 lb 1oz EFW by Cordell([id number]) Head / Face / Neck Biometry: Echometer Engineer 5.1mm CM 4.1mm ANATOMY ----- The following structures appear normal: Head / Neck Cranium. Head size. Head shape.Lateral ventricles. Midline falx. Cavum septi pellucidi. Cerebellum.Cisterna magna. Thalami. Face Lips. Profile. Nose. Heart / Thorax 4-chamber view. RVOT view. LVOT view.6-ludgtb-seyetxd view. Situs. Aortic arch view. Ductal arch [...] and she plans to do these in [place]. Return to primary provider for continued care. [...] fluid volume appeared normal. Jackie Cook MD [facility] US ORDERABLE S * ABSTRACT HIV (01/31/2024 2:49 PM CDT) Pathologist [facility] [place] HIV 1&2 EXT Non-Reacti ve [facility] Blood 01/31/2024 2:49 PM CDT [facility] - 01/31/2024 2:49 PM CDT [facility] - External Lab Results Provider Outside LAB - HIM EXTERNAL R ESULT [facility] [address] [place] [address], [facility] [phone] * Hepatitis C (HIM External Result) (01/31/2024 2:49 PM CDT) Pathologist [facility] [place] Hep C HIM See Scanned Document [facility] 01/31/2024 2:49 PM CDT [facility] - 01/31/2024 2:49 PM CDT [facility] - External Lab Results Provider Outside LAB - HIM EXTERNAL R ESULT [facility] [address] [place] [address], [facility] [phone] * Glucose (External Result) (01/05/2024 10:48 PM CDT) Glucose (External) 109 60 - 115 mg/dL [facility] Blood 01/05/2024 10:4 8 PM CDT Narrative [facility] - 01/05/2024 10:48 PM CDT [facility] ED NOTES Provider Outside LAB - [facility] EXTERNAL R ESULT Performing Organization Address City/[facility]/ZIP Co de Phone Number [facility] [address] [place] [address], [facility] [phone] * (ABNORMAL) Lipid panel reflex to direct LDL Fasting (06/04/2022 11:12 AM CDT) Cholesterol 242(H) <200 mg/dL 06/05/2022 12:26 PM CDT [facility] Triglycerides 82 <150 mg/dL 06/05/2022 12:26 PM CDT [facility] Direct Measure HDL 68 >=50 mg/dL 06/05/2022 12:26 PM CDT [facility] LDL Cholesterol Calculated 158(H) <=100 mg/dL 06/05/2022 12:26 PM CDT [facility] Non HDL Cholesterol 174(H) <130 mg/dL 06/05/2022 12:26 PM CDT [facility] Patient Fasting > 8hrs? Unknown 06/05/2022 12:26 PM CDT [facility] Blood VENOUS BLOOD / Unknown Venipuncture / Unknown 06/04/2022 11:12 AM CDT 06/04/2022 11:13 AM CDT Narrative [facility] - 06/05/2022 12:26 PM CDT Cholesterol Desirable: ??<200 mg/dL Triglycerides Normal: ??Less than 150 mg/dL Borderline High: ??150-199 mg/dL High: ??200-499 mg/dL Very High: ??Greater than or equal to 500 mg/dL Direct Measure HDL Female: ??Greater than or equal to 50 mg/dL Male: ??Greater than or equal to 40 mg/dL LDL Cholesterol Desirable: ??<100mg/dL Above Desirable: ??100-129 mg/dL Borderline High: ??130-159 mg/dL High: ??160-189 mg/dL Very High: ??>= 190 mg/dL Non HDL Cholesterol Desirable: ??130 mg/dL Above Desirable: ??130-159 mg/dL Borderline High: ??160-189 mg/dL High: ??190-219 mg/dL Very High: ??Greater than or equal to 220 mg/dL Bee Vicente MD LAB - BLOOD ORDER [facility] [address] Lab (no room number, 1st floor of clinic) [place] [address], [facility] [phone] * Pap thin layer screen with HPV - recommended age 30 - 65 years (02/05/2022 3:37 PM CDT) Interpretation Negative for Intraepithelial Lesion or Malignancy (NILM) 02/10/2022 9:42 AM CDT [facility] Comment Papanicolaou Test Limitations: Cervical cytology is a screening test with limited sensitivity, and regular screening is critical for cancer prevention. Pap tests are primarily effective for the diagnosis/prevent ion of squamous cell carcinoma, not adenocarcinoma or other cancers. 02/10/2022 9:42 AM CDT [facility] Specimen Adequacy Satisfactory for evaluation, endocervical/horowitz sformation zone component absent 02/10/2022 9:42 AM CDT [facility] Clinical Information none 02/10/2022 9:42 AM CDT [facility] LMP/Menopause Date 01/19/2022 02/10/2022 9:42 AM CDT [facility] Reflex Testing Yes regardless of result 02/10/2022 9:42 AM CDT [facility] Previous Abnormal? No 02/10/2022 9:42 AM CDT [facility] Performing Labs The technical component of this testing was completed at [facility] 02/10/2022 9:42 AM CDT [facility] Brushing CERVIX UTERI STRUCTURE / Unknown Non-blood Collection / Unknown 02/05/2022 3:37 PM CDT 02/05/2022 4:08 PM CDT Fior NOLAN - OLVIN IBANEZ [facility] Specialty Lab [address] [facility], [address] [place] [address], [facility] [phone] * HPV High Risk Types DNA Cervical (02/05/2022 3:37 PM CDT) Other HR HPV Negative Negative 02/12/2022 1:55 PM CDT [facility] HPV16 DNA Negative Negative 02/12/2022 1:55 PM CDT [facility] HPV18 DNA Negative Negative 02/12/2022 1:55 PM CDT [facility] FINAL DIAGNOSIS This patient's sample is negative for HPV DNA. This test was developed and its performance characteristics determined by the [facility], Molecular Diagnostics Laboratory. It has not been cleared or approved by the FDA. The laboratory is regulated under CLIA as qualified to perform high-complexity testing. This test is used for clinical purposes. It should not be regarded as investigational or for research. METHODOLOGY: The Armando Anand 4800 system uses automated extraction, simultaneous amplification of HPV (L1 region) and beta-globin, followed by real time detection of fluorescent labeled HPV and beta globin using specific oligonucleotide probes. The test specifically identified types HPV 16 DNA and HPV 18 DNA while concurrently detecting the rest of the high risk types (31, 33, 35, 39, 45, 51, 52, 56, 58, 59, 66 or 68). COMMENTS: This test is not intended for use as a screening device for woman under age 30 with normal cervical cytology. Results should be correlated with cytologic and histologic findings. Close clinical followup is recommended. 02/12/2022 1:55 PM CDT [facility] Brushing CERVIX UTERI STRUCTURE / Unknown Non-blood Collection / Unknown 02/05/2022 3:37 PM CDT 02/11/2022 9:24 AM CDT Fior Mejia MD LAB - BLOOD ORDERABL ES [facility] [address] [facility], [address] [place], [place] [id number] [phone] * Non Invasive Test Cell Free DNA (07/25/2019 12:09 PM CDT) Lab Scanned Result NON INVAS DNA-Scanned MISYS Blood specimen (specimen) 07/25/2019 12:09 PM CDT Atul Han MD LAB - BLOOD ORDERAB LES MISYS from Last 3 Months or Most Recently Relevant to Health Maintenance Care Teams Events Intern Relationship Specialty Start Date End Date Kecia Segovia PA [address] [place] [address] PCP - General 03/17/24 Fior Mejia MD [address] [facility] [address] [place] [address] Assigned OBGYN Provider 5/1/22 [place] [address] [place] [address] Assigned PCP 04/17/22 Flori De Luna MD [address] [facility] [address] [place] [address] Physician digital content specialist 01/09/24
--- OUTSIDE RECORDS SUMMARY | 2024-07-17 14:48 | XMS_ITS | Encounter Summary ---
Author Organization [facility] Address [address] [place] [address] Care Team Providers Care Easter Bunny Name Role Phone Bee Araiza APRN, CNP Primary Care Provide r Reason for Visit * Reason Comments Depression Registry Call 1 Call pt back in 2-5 days if no answer Encounter Details Date Type Department Care Team (Late st Contact Info) Description 04/09[facility]2024 [facility] [address] [place] [address] Bee Araiza APRN, CNP [address] [place] [address] Depression Registry Call 1 (Call pt back in 2-5 days if no answer ) Social History Tobacco Use Types Packs/Day Years [...] on file Sexual Orientation Not on file documented as of this encounter Nursing Notes * Krissy Bellamy LPN - 04/09/2024 1:40 PM CDT Left message for patient to call back. Frontline/Patient Service Center (PSC), please warm transfercall to extension [phone] to discuss. If no answer at extension, re-route to CSS (Clinical Teamcenter Solution Architect). Message to Patient/Caller: Contacted patient to complete PHQ9. Outcome of call: Left message. Krissy Bellamy LPN 04/09/2024, 1:41 PM documented in this encounter Plan of Treatment Not on file documented as of this encounter Visit Diagnoses Not on filedocumented in this encounter Care Teams Easter Bunny Relationship Specialty Start Date End Date Bee Araiza, MILITARY PAY TECHNICIAN, SOAP MAKER [address] [place] [address] PCP - General Nurse Practitioner 02/11/23 documented as of this encounter
--- OUTSIDE RECORDS SUMMARY | 2024-07-17 14:48 | XMS_ITS | Encounter Summary ---
Author Organization [facility] Address [address] [place] [address] Care Team Providers Care Hospital Mortician Name Role Phone Tiffanie Fitch APRN, CNP Primary Care Provide r Reason for Visit * Reason Comments Refill buPROPion (WELLBUTRI N XL) 150 MG 24 hour release tablet [Pharmacy Med Name: BUPROPION XL 150MG TABLETS (24 H)] Encounter Details Date Type Department Care Team (Late st Contact Info) Description 04/10/[address] [facility] [address] [place] [address] Tiffanie Fitch APRN, CNP [address] [place], [place] [id number] Refill (buPROPion (WELLBUTRIN XL) 150 MG 24 hour release tablet [Pharmacy Med Name: BUPROPION XL 150MG TABLETS (24 H)]) Social History Tobacco Use Types Packs/Day Years [...] as of this encounter Nursing Notes * Tiffanie Fitch APRN, CNP - 04/13/2024 8:19 AM CDT Needs appointment for further refills * Yanira Fuller - 04/11/2024 10:50 AM CDT Medication Refill - Due for Visit Medication still pending, patient is due to be seen in the next 30 days. Called patient, was: unable to reach patient. Left message for patient to schedule an appt. * Valeri Theodore RN - 04/11/2024 10:40 AM CDT Further Assistance Needed on Refill from Planner Intern Patient is due for Qualifying Visit Medication is still pending. Patient is due for an Office/Video Visit in the next 30 days. Call Patient and document using .Soundflavor. After attempting to schedule patient: If appointment is scheduled within 60 days: Please route to: Refill pool If unable to schedule appointment or scheduled greater than 60 days: Please route to: Tiffanie Fitch APRN, CNP or covering provider. Requested Prescriptions Pending Prescriptions Disp Refills buPROPion (WELLBUTRIN XL) 150 MG 24 hour release tablet [Pharmacy Med Name: BUPROPION XL 150MG TABLETS (24 H)] 180 Tablet 0 Sig: take 2 tablets by mouth daily * Trina Lunsford - 04/10/2024 9:44 AM CDT buPROPion (WELLBUTRIN XL) 150 MG 24 hour release tablet [Pharmacy Med Name: BUPROPION XL 150MG TABLETS (24 H)] Medication started: 12/06/2022 Last ordered by TIFFANIE FITCH: 02/11/2023 (424 days ago) QTY: 180, Refills: 3, Sig: take 2 tablets (300 mg) by mouth daily. (changed but equivalent) -> The most recent order on 02/11/2024. -> An office visit is overdue (performed over 14 months ago, required every 12 months). Last qualifying visit: 02/11/2023 (with TIFFANIE FITCH) Next scheduled visit: None Age: 39 [employer] Embedded Refills, Reference: [id number], 04/10/2024 9:44:23 AM CDT, Baldev: ANG [facility] [[id number]] ([id number]) documented in this encounter Plan of Treatment Not on file documented as of this encounter Visit Diagnoses Not on filedocumented in this encounter Care Teams Hospital Mortician Relationship Specialty Start Date End Date Tiffanie Fitch, SIGNAL MANAGER, GOLF CLUB REPAIRER [address] [place] [address] PCP - General Nurse Practitioner 02/11/23 documented as of this encounter
--- OUTSIDE RECORDS SUMMARY | 2024-07-17 14:48 | XMS_ITS | Encounter Summary ---
Author Organization [facility] Address [address] [place] [address] Care Team Providers Care Filling Carrier Name Role Phone Fior Mejia MD Unavailable Bee Vicente MD Primary Care Provider [phone] Bee Vicente MD Unavailable [phone] Flori De Luna MD Unavailable [phone] Kecia Segovia Primary Care Provider [phone] Reason for Visit * Reason Onset Date Comments MyChart Communication 01/31/2024 Encounter Details Date Type Department Care Team (Latest Contact Info) Description 01/31/2024 [facility] [address] [phone] Kylah Trotter, RN MyChart Communication Social History Tobacco Use Types Packs/Day Years [...] How often do you attend chur or shinto services? Never 06/04/2022 Do you belong to any clubs o r organizations such as taoism groups, unions, fraternal or athletic groups, or [...] Answer Date Recorded PHQ-2 Score 3 06/04/2022 [facility] of Occupat ional [facility] - Occupational Stress Questionnaire Answer Date [...] place to sleep or slept in a long term (including now)? No 06/04/2022 Adolescent Education Answer Date Record ed Getting School Help Needed Not on file 07/01 Comments Yes Sex and Gender Information Value Date Recorded [...] documented as of this encounter Care Teams Filling Carrier Relationship Specialty [place] [address] [place] [address] PCP - General Family Medicine 04/16/22 03/16/24 Kecia Segovia PA [address] [place] [address] PCP - General 03/17/24 Fior Mejia MD [address] [address] Assigned OBGYN Provider 02/07/22 [place] [address] [place] [address] Assigned PCP 04/17/22 Flori De Luna MD [address] [place] [address] [place] [address] Physician rework operator 01/09/24 documented as of this encounter
--- OUTSIDE RECORDS SUMMARY | 2024-07-17 14:48 | XMS_ITS | Encounter Summary ---
Author Organization [place] Address [facility] [place] [address] Care Team Providers Care Fast Food Cashier Name Role Phone Fior Mejia MD Unavailable Bee Vicente MD Unavailable [phone] Flori De Luna MD Unavailable [phone] Kecia Segovia Primary Care Provider [phone] Reason for Visit * Reason Comments Ultrasound RL2: suboptimal gabriele jian CHTСветлана, BMI 36, AMA Encounter Details Date Type Department Care Team (Late st Contact Info) Description 04/16/2024 9:15 AM CDT Office Visit [facility] [address] [address] Maxx Luu MD [address] [place] [address] Multigravida of advanced maternal age in second trimester (Primary Dx); Maternal hypertension in second trimester Social History Tobacco Use Types Packs/Day Years [...] often do you attend chur ch or buddhist services? Never 06/04/2022 Do you belong to any clubs o r organizations such as episcopalian groups, unions, fraternal or athletic groups, or [...] Answer Date Recorded PHQ-2 Score 3 06/04/2022 [facility] - Occupational Stress Questionnaire Answer Date [...] place to sleep or slept in a mcfp (including now)? No 06/04/2022 Adolescent Education Answer [...] PM CDT documented as of this encounter Progress Notes * Maxx Luu MD - 04/16/2024 9:15 AM CDT Please see full imaging report from ViewPoint program under imaging tab. Maxx Luu MD Maternal Medicine documented in this encounter Nursing Notes * Neema Collazo RN - 04/16/2024 9:15 AM CDT Patient presents to [facility] for RL2 at 22w3d due to suboptimal anatomy on previous US, CHTN, BMI 36, AMA. Positive movement. Denies LOF, vaginal bleeding or cramping/contractions. [facility] see their note in Epic. documented in this encounter Plan of Treatment Not on file documented as of this encounter Visit Diagnoses Diagnosis Multigravida of advanced maternal age in second trimester- Primary Maternal hypertension in second trimester Unspecified hypertension antepartum documented in this encounter Additional Health Concerns Assessment Noted Time PHQ-9 Depression Total Score: 8 06/04/20 22 10:15 AM CDT documented as of this encounter Care Teams Fast Food Cashier Relationship Specialty Start Date End Date Kecia Segovia PA [address] [place] [address] PCP - General 03/17/24 Fior Mejia MD [address] [place] [address] Assigned OBGYN Provider 02/07/22 [place] [address] [place] [address] Assigned PCP 04/17/22 Flori De Luna MD [address] [place] [address] Physician naval gunfire liaison officer 01/09/24 documented as of this encounter
--- OUTSIDE RECORDS SUMMARY | 2024-07-17 14:48 | XMS_ITS | Encounter Summary ---
Author Organization [place] Address [address] [place] [address] Care Team Providers Care Structural Steel Erection Supervisor Name Role Phone Fior Mejia MD Unavailable Bee Vicente MD Primary Care Provider [phone] Bee Vicente MD Unavailable [phone] Kimber Conte APRN Unavailable Flori De Luna MD Unavailable [phone] Kecia Segovia Primary Care Provider [phone] Encounter Details Date Type Department Care Team (Late st Contact Info) Description 09/13/2023 [facility] Medical Advice [address] [address] Ana To Social History Tobacco Use Types Packs/Day Years [...] week 06/04/2022 How often do you attend [facility] or judaism services? Never 06/04/2022 Do you belong to any clubs o r organizations such as quaker groups, unions, fraternal or athletic groups, or [...] Date Recorded PHQ-2 Score 3 06/04/2022 [facility] of Occupat ional [facility] - Occupational Stress Questionnaire Answer Date Recorded [...] place to sleep or slept in a halfway (including now)? No 06/04/2022 Adolescent Education Answer [...] documented as of this encounter Care Teams Structural Steel Erection Supervisor Relationship Specialty [place] [address] [place] [address] PCP - General Family Medicine 04/16/22 03/16/24 Kecia Segovia PA [address] [place] [address] PCP - General 03/17/24 Fior Mejia MD [address] [address] Assigned OBGYN Provider 02/07/22 [place] [address] [place] [address] Assigned PCP 04/17/22 Kimber Conte APRN CNM [facility] [address] [place] [address] Build Manager Midwives 01/09/24 01/09/24 Flori De Luna MD [address] [place] [address] Physician organ fixer 01/09/24 documented as of this encounter
--- OUTSIDE RECORDS SUMMARY | 2024-07-17 14:48 | XMS_ITS | Encounter Summary ---
Author Organization [place] Address [address] [place] [address] Care Team Providers Care Global Ceo Name Role Phone Fior Mejia MD Unavailable Bee Vicente MD Primary Care Provider [phone] Bee Vicente MD Unavailable [phone] Kimber Conte APRN Unavailable Flori De Luna MD Unavailable [phone] Kecia Segovia Primary Care Provider [phone] Encounter Details Date Type Department Care Team (Late st Contact Info) Description 07/19/2023 [facility] Medical Advice [facility] [address] [phone] Bee Hdz, RN Social History Tobacco Use Types Packs/Day Years [...] week 06/04/2022 How often do you attend [facility] or methodist services? Never 06/04/2022 Do you belong to any clubs o r organizations such as anabaptism groups, unions, fraternal or athletic groups, or [...] Answer Date Recorded PHQ-2 Score 3 06/04/2022 [facility] of Occupat ional Health - Occupational [...] documented as of this encounter Care Teams Global Ceo Relationship Specialty [place] [address] [place] [address] PCP - General Family Medicine 04/16/22 03/16/24 Kecia Segovia PA [address] [place] [address] PCP - General 03/17/24 Fior Mejia MD [address] [address] Assigned OBGYN Provider 02/07/22 [place] [address] [place] [address] Assigned PCP 04/17/22 Kimber Conte APRN CNM [facility] [address] [place] [address] Assistant Kitchen Manager Midwives 01/09/24 01/09/24 Flori De Luna MD [address] [place] [address] Physician cell lead 01/09/24 documented as of this encounter
--- OUTSIDE RECORDS SUMMARY | 2024-07-17 14:48 | XMS_ITS | Referral Summary ---
Author Organization [place] Address [address] [place] [address] Care Team Providers Care Packaging Design Engineer Name Role Phone Fior Mejia MD Unavailable Bee Vicente MD Unavailable [phone] Flori De Luna MD Unavailable [phone] Kecia Segovia Primary Care Provider [phone] Encounters Date Type Department Care Team Description 04/16/2024 9:15 AM CDT Office Visit [facility] [address] [phone] Maxx Luu MD Multigravida of advanced maternal age in second trimester (Primary Dx); Maternal hypertension in second trimester 04/16/2024 8:45 AM CDT - 04/16/2024 11:59 PM CDT Hospital Encounter [facility] [address] [phone] Maxx Luu MD Encounter for follow-up ultrasound of anatomy Discharge Disposition: Home or Self Care from Last 3 Months Allergies No known active allergies Medications Medication [...] upper arm 03/13/202105/11 Fatigue, unspecified type 03/13/2021 Immunizations Name Administration Dates Next Due COVID-19 MONOVALENT 12+ (Pfizer) 02/03/2021,04/0 03/2021 Influenza Vaccine >6 months,quad, PF ,07/12/2019,07/26/2018, 017,08/19/2016,07/21/2015 Rabies Vaccine 03/04/2014,02/11/2014 TDAP (Adacel,Boostrix) 11/13/2019,08/11/2017, TDAP Vaccine (Adacel) 11/13/2019,08/11/2017,06/11 Social History Tobacco Use Types Packs/Day Years [...] often do you attend chur ch or faith services? Never 06/04/2022 Do you belong to any clubs o r organizations such as protestant groups, unions, fraternal or athletic groups, or [...] Answer Date Recorded PHQ-2 Score 3 06/04/2022 [facility] of Occupat ional Health - Occupational [...] place to sleep or slept in a alf (including now)? No 06/04/2022 Adolescent Education Answer [...] 06/04/2022 10:24 AM CDT Plan of Treatment Not on file Procedures Procedure Name Priority Date/Time Associated Diagnosis Comments [facility] COMPREHENSIVE SINGLE F/U Routine 04/16/2024 9:20 AM CDT Encounter for follow-up ultrasound of anatomy ABSTRACT HIV Routine 01/31/2024 2:49 PM CDT HEPATITIS C (HIM EXTERNAL RESULT) Routine 01/31/2024 2:49 PM CDT GLUCOSE (EXTERNAL RESULT) Routine 01/05/2024 10:48 PM CDT LIPID REFLEX TO DIRECT LDL PANEL Routine 06/04/2022 11:12 AM CDT Routine general medical examination at a [facility] GYNECOLOGIC CYTOLOGY Routine 02/05/2022 3:37 PM CDT [...] Recently Relevant to Health Maintenance Results * [facility] Comprehensive Single F/U (04/16/2024 9:20 AM CDT) [...] ? Study Date: ??04/16/2024 8:43am Pat. NO: ??[id number] ?Referring ??MD: AVIS ANGELO Site: ? Legal Practice Manager: Miriam Perla RDMS : ??1985 ?Age: [...] lb 1 ?oz EFW by ? Cordell ([id number]) Head / Face / Neck Biometry: Show Card Writer ?5.1 ? mm CM ? 4.1 ? mm ANATOMY ----- The following structures appear normal: Head / Neck ? Cranium. Head size. Head shape. Lateral ventricles. Midline falx. Cavum septi pellucidi. Cerebellum. Cisterna magna. Thalami. Face ? Lips. Profile. Nose. Heart / Thorax ?4-chamber view. RVOT view. LVOT view. 4-pczjse-lxivfzm view. Situs. Aortic arch view. Ductal arch [...] and she plans to do these in [place]. Return to primary provider for continued care. If you have questions regarding today's evaluation or if we can be of further service, please contact the [facility]. anomalies may be present but not detected Procedure Note Maxx Luu MD - 04/16/2024 Comp Follow Up ----- Pat. Name: SAMMIE LAFLEUR Study Date: 04/16/2024 8:43am Pat. NO: [id number] Referring MD: AVIS ANGELO Site: Legal Practice Manager: Miriam Perla RDMS : 1985 Age: 39 ----- INDICATION ----- Reevaluate growth and suboptimal anatomy. AMA 39 years. Chronic hypertension on Labetalol. METHOD ----- Transabdominal ultrasound examination. View: Sufficient ----- Cruz . Number of fetuses: 1 DATING ----- DateDetailsGest. age SARAH LMP 11/24/2023ycle: LMP date [id number] w + 4 d 08/30/2024 Previous U/S [...] EFW (lb,oz) 1 lb 1oz EFW by Cordell([id number]) Head / Face / Neck Biometry: Show Card Writer 5.1mm CM 4.1mm ANATOMY ----- The following structures appear normal: Head / Neck Cranium. Head size. Head shape.Lateral ventricles. Midline falx. Cavum septi pellucidi. Cerebellum.Cisterna magna. Thalami. Face Lips. Profile. Nose. Heart / Thorax 4-chamber view. RVOT view. LVOT view.7-znmauc-oqksnup view. Situs. Aortic arch view. Ductal arch [...] and she plans to do these in [place]. Return to primary provider for continued care. [...] fluid volume appeared normal. Jackie Cook MD [facility] US ORDERABLE S * ABSTRACT HIV (01/31/2024 2:49 PM CDT) HIV 1&2 EXT Non-Reacti ve [facility] Blood 01/31/2024 2:49 PM CDT [facility] - 01/31/2024 2:49 PM CDT [facility] - External Lab Results Provider Outside LAB - HIM EXTERNAL R ESULT Performing Organization Address City/[facility] Co de Phone Number [facility] [address] [phone] * Hepatitis C (HIM External Result) (01/31/2024 2:49 PM CDT) Hep C HIM See Scanned Document [facility] 01/31/2024 2:49 PM CDT [facility] - 01/31/2024 2:49 PM CDT [facility] - External Lab Results Provider Outside LAB - HIM EXTERNAL R ESULT Performing Organization Address [facility]/ZIP Co de Phone Number [facility] [address] [place] [address], [facility] [phone] * Glucose (External Result) (01/05/2024 10:48 PM CDT) Glucose (External) 109 60 - 115 mg/dL [facility] Blood 01/05/2024 10:4 8 PM CDT [facility] - 01/05/2024 10:48 PM CDT [facility] ED NOTES Provider Outside LAB - HIM EXTERNAL R ESULT [facility] [address] [place], [place] [address] [place] [address] * (ABNORMAL) Lipid panel reflex to direct [...] Vicente MD LAB - BLOOD ORDER [facility] [address] Lab (no room number, 1st floor of clinic) [place] [address], [facility] [phone] * Pap thin layer screen with HPV [...] component of this testing was completed at [facility] 02/10/2022 9:42 AM CDT [facility] Brushing CERVIX UTERI STRUCTURE / Unknown Non-blood Collection / Unknown 02/05/2022 3:37 PM CDT 02/05/2022 4:08 PM CDT Fior NOLAN - OLVIN IBANEZ [facility] Specialty Lab [address] [facility], Room [address] [place] [address], [facility] [phone] * HPV High Risk Types DNA Cervical (02/05/2022 3:37 PM CDT) Other HR HPV Negative Negative 02/12/2022 1:55 PM CDT [facility] HPV16 DNA Negative Negative 02/12/2022 1:55 PM CDT [facility] HPV18 DNA Negative Negative 02/12/2022 1:55 PM CDT [facility] FINAL DIAGNOSIS This patient's sample is negative for HPV DNA. This test was developed and its performance characteristics determined by the [facility]. It has not been [...] [facility] [address] [facility], [address] [address], [facility] [phone] * Non Invasive Test Cell Free DNA (07/25/2019 12:09 PM CDT) Lab Scanned Result NON INVAS DNA-Scanned MISYS Blood specimen (specimen) 07/25/2019 12:09 PM CDT Atul Han MD LAB - BLOOD ORDERAB LES MISYS from Last 3 Months or Most Recently Relevant to Health Maintenance Care Teams Packaging Design Engineer Relationship Specialty Start Date End Date Kecia Segovia PA [facility] [place] [address] PCP - General 03/17/24 Fior Mejia MD [address] [address] Assigned OBGYN Provider 02/07/22 [place] [address] [place] [address] Assigned PCP 04/17/22 Flori De Luna MD [address] [facility] [address] [place] [address] Physician sewing machinist 01/09/24
--- OUTSIDE RECORDS SUMMARY | 2024-07-17 14:48 | XMS_ITS | Encounter Summary ---
Author Organization [place] Address [address] [place] [address] Care Team Providers Care Rnp Name Role Phone Fior Mejia MD Unavailable Bee Vicente MD Primary Care Provider [phone] Bee Vicente MD Unavailable [phone] Kimber Conte APRN Unavailable Flori De Luna MD Unavailable [phone] Kecia Segovia Primary Care Provider [phone] Reason for Visit * Reason Onset Date Comments MyChart Communication 08/11/2023 Encounter Details Date Type Department Care Team (Latest Contact Info) Description 08/11/2023 [place] [facility] Advice [facility] [address] [phone] Kylah Trotter, RN MyChart Communication Social History [...] often do you attend chur ch or advent services? Never 06/04/2022 Do you belong to any clubs o r organizations such as rastafari groups, unions, fraternal or athletic groups, or [...] Answer Date Recorded PHQ-2 Score 3 06/04/2022 [facility] of Occupat ional [facility] - Occupational Stress Questionnaire Answer Date Recorded [...] place to sleep or slept in a residential (including now)? No 06/04/2022 Adolescent Education Answer Date Record ed Getting School Help Needed Not on file 07/01 Comments Yes Sex and Gender Information Value Date Recorded Sex Assigned at Female 03/05/2021 2:58 PM CDT Gender Identity Female 03/05/2021 2:58 PM CDT Sexual Orientation Straight 03/05/2021 2: 58 PM CDT documented as of this encounter Miscellaneous Notes * Telephone Encounter - Fior Mejia MD - 08/16/2023 8:03 AM CST Oh, no! I am sorry to hear this. Yes I think reasonable to cancel appointment tomorrow and repeat UPT in about 2 weeks. Agree with your overall recommendations IOLOGY TEACHER * Telephone Encounter - Kylah Trotter RN - 08/15/2023 8:05 AM CST SAB at home over the weekend 08/12/2308/17 scheduled for 1st OB US and visit - ok to cancel w instructions given? Or want to see her Tuesday? Kylah Trotter RN on 08/15/2023 at 8:07 AM IOLOGY TEACHER documented in this encounter Plan of Treatment Not on file documented as of this encounter Visit Diagnoses Not on filedocumented in this encounter Additional Health Concerns Assessment Noted Time PHQ-9 Depression Total Score: 8 06/04/20 22 10:15 AM CDT documented as of this encounter Care Teams Rnp Relationship Specialty [place] [address] [address] [place] [address] PCP - General Family Medicine 04/16/22 03/16/24 Kecia Segovia PA [address] [place] [address] PCP - General 03/17/24 Fior Mejia MD [address] [place] [address] Assigned OBGYN Provider 02/07/22 [place] [address] [place] [address] Assigned PCP 04/17/22 Kimber Conte APRN CNM [facility] [address] [place] [address] Veterinary Technician Instructor Midwives 01/09/24 01/09/24 Flori De Luna MD [address] [place] [address] Physician hot mill roller 01/09/24 documented as of this encounter
--- OUTSIDE RECORDS SUMMARY | 2024-07-17 14:48 | XMS_ITS | Encounter Summary ---
Author Organization [place] Address [address] [place] [address] Care Team Providers Care Component Prep Operator Name Role Phone Fior Mejia MD Unavailable Bee Vicente MD Unavailable [phone] Flori De Luna MD Unavailable [phone] Kecia Segovia Primary Care Provider [phone] Encounter Details Date Type Department Care Team (Latest Contact Info) Description 04/15/2024 Travel Social History Tobacco Use Types Packs/Day Years [...] any clubs o r organizations such as anglican groups, unions, fraternal or athletic groups, or [...] Answer Date Recorded PHQ-2 Score 3 06/04/2022 [facility] of Occupat ional Health - Occupational Stress [...] place to sleep or slept in a jail (including now)? No 06/04/2022 Adolescent Education Answer [...] documented as of this encounter Care Teams Component Prep Operator Relationship Specialty Start Date End Date Kecia Segovia PA [address] [place] [address] PCP - General 03/17/24 Fior Mejia MD [address] [facility] [address] [place] [address] Assigned OBGYN Provider 02/07/22 [place] [address] [place] [address] Assigned PCP 04/17/22 Flori De Luna MD [address] [place] [address] Physician cullet crusher and washer 01/09/24 documented as of this encounter
--- OUTSIDE RECORDS SUMMARY | 2024-07-17 14:48 | XMS_ITS | Encounter Summary ---
Author Organization [place] Address [address] [place] [address] Care Team Providers Care Sales And Merchandising Associate Name Role Phone Fior Mejia MD Unavailable Bee Vicente MD Primary Care Provider [phone] Bee Vicente MD Unavailable [phone] Kimber Conte APRN Unavailable Folri De Luna MD Unavailable [phone] Kecia Segovia Primary Care Provider [phone] Encounter Details Date Type Department Care Team (Late st Contact Info) Description 05/23/2023 [facility] Medical Advice [address] [phone] Monie Wilks MA Social History Tobacco Use Types Packs/Day Years [...] week 06/04/2022 How often do you attend [facility] or temple services? Never 06/04/2022 Do you belong to any clubs o r organizations such as confucianism groups, unions, fraternal or athletic groups, or [...] Answer Date Recorded PHQ-2 Score 3 06/04/2022 [facility] of Occupat ional [facility] - Occupational Stress Questionnaire Answer [...] place to sleep or slept in a prison (including now)? No 06/04/2022 Sex and Gender Information Value Date Recorded [...] documented as of this encounter Care Teams Sales And Merchandising Associate Relationship Specialty [place] [address] [place] [address] PCP - General Family Medicine 04/16/22 03/16/24 Kecia Segovia PA [address] [place] [address] PCP - General 03/17/24 Fior Mejia MD [address] [place] [address] Assigned OBGYN Provider 02/07/22 [place] [address] [place] [address] Assigned PCP 04/17/22 Kimber Conte APRN CNM [facility] [address] [place] [address] Grounds And Nursery Specialist Midwives 01/09/24 01/09/24 Flori De Luna MD [address] [place] [address] Physician cocktail server 01/09/24 documented as of this encounter
--- OUTSIDE RECORDS SUMMARY | 2024-07-17 14:48 | XMS_ITS | Encounter Summary ---
[facility] Address [address] [place] [address] Care Team Providers Care E/M Engineer Name Role Phone Bee Fitch APRN, CNP Primary Care Provide r Reason for Visit * Reason Comments Refill buPROPion (WELLBUTRI N XL) 150 MG 24 hour release tablet [Pharmacy Med Name: BUPROPION XL 150MG TABLETS (24 H)] Encounter Details Date Type Department Care Team (Late st Contact Info) Description 05/06/[facility]24 [facility] [address] [place] [address] Bee Fitch APRN, CNP [address] [place], [place] [phone] Refill (buPROPion (WELLBUTRIN XL) 150 MG 24 [...] of this encounter Nursing Notes * Krissy Lacey MA - 05/07/2024 4:56 PM CDT Left message medication refilled and will need a visit for any further refills. [phone] to schedule. * Bee Fitch APRN, CNP - 05/07/2024 4:52 PM CDT Please let patient know the prescription was sent to their pharmacy and help schedule a medication follow up visit with labor contract analyst. There will be no further refills until the patient is seen. * Krissy Lacey MA - 05/07/2024 4:15 PM CDT Medication Refill - Due for Visit Medication still pending, patient is due to be seen in the next 30 days. Called patient, was: unable to reach patient. 2nd call attempted. Unsuccessful in reaching patient. Frontline Action: Route to clinician identified in nursing documentation below. Clinician Action: Unsuccessful in reaching patient to schedule, requests refill. Please determine whether refill is appropriate. Recommend using ???Refuse All?? quick action to address request. Last qualifying visit: 02/11/2023 (with BEE FITCH) * Valeri Theodore RN - 05/07/2024 4:05 PM CDT Further Assistance Needed on Refill from Childhood Development Teacher Patient is due for Qualifying Visit Medication is still pending. Patient is due for a Office/Video Visit in the next 30 days. Call Patient and document using .SAMMI. After attempting to schedule patient: Please route to: Bee Fitch APRN, JALEN or covering provider. Requested Prescriptions Pending Prescriptions Disp Refills buPROPion (WELLBUTRIN XL) 150 MG 24 hour release tablet [Pharmacy Med Name: BUPROPION XL 150MG TABLETS (24 H)] 180 Tablet 0 Sig: take 2 tablets by mouth daily * Leslyravinder Nuillwizard Xrwcomm - 05/06/2024 9:51 AM CDT buPROPion (WELLBUTRIN XL) 150 MG 24 hour release tablet [Pharmacy Med Name: BUPROPION XL 150MG TABLETS (24 H)] Medication started: 12/06/2022 Last ordered by BEE FITCH: 04/13/2024 (23 days ago) QTY: 60, Refills: 0, Sig: take 2 tablets by mouth daily (unchanged) -> An office visit is overdue (performed 15 months ago, required every 12 months). Last qualifying visit: 02/11/2023 (with BEE FITCH) Next scheduled visit: None Age: 39 [employer] Embedded Refills, Reference: [id number], 05/06/2024 9:51:32 AM CDT, Pool: ANG Refill Centralized Services - Primary Care [[id number]] ([id number]) documented in this encounter Plan of Treatment Not on file documented as of this encounter Visit Diagnoses Not on filedocumented in this encounter Care Teams E/M Engineer Relationship Specialty Start Date End Date Bee Fitch, RAMIRO, TECHNOLOGY DEVELOPMENT INTERN [address] [place] [address] PCP - General Nurse Practitioner 02/11/23 documented as of this encounter
--- OUTSIDE RECORDS SUMMARY | 2024-07-17 14:49 | XMS_ITS | Clinical Summary ---
Author Organization [facility] Address [address] [place] [address] Care Team Providers Care Continuous Loft Operator Name Role Phone Unavailable Primary Care Provider Unavailabl e Source Comments Patient records contain information from all sites at [facility]. For routine questions regarding patient records, call [phone] during business hours, M-F 8:00 AM - 5:00 PM Central Time. Record requests for emergency care only can be directed to [phone] at any time.[facility] Medications Medication Sig Dispensed Refills Start Date End Date Status labetaloL 200 mg tablet Take 2 tablets (400 mg total) by mouth 2 (two) times a day. 120 tablet 11 06/18/2024 06/18/2025 Active Active Problems Problem Noted Date Diagnosed Date Hypertension Essential Primary 07/17/2024 Proteinuria 04/26/2024 Encounters Date Type Department Care Team Description 07/17/2024 1:00 PM CDT External Outreach Division of Nephrology and Hypertension in [place], [place] [address] [place] [phone] Janie Gomez M.D., Ph.D. Proteinuria (Primary Dx); Hypertension Essential Primary 06/18/2024 4:00 PM CDT External Outreach Division of Nephrology and Hypertension in [place], [place] [address] [place] [phone] Janie Gomez M.D., Ph.D. Proteinuria (Primary Dx); Hypertension Essential Primary 05/24/2024 Clinical Communication Division of Nephrology and Hypertension in [place], [place] [address] [place] [phone] Janie Gomez M.D., Ph.D. 04/24/2024 3:30 PM CDT External Outreach Division of Nephrology and Hypertension in [place], [place] [address] [place] [phone] Janie Gomez M.D., Ph.D. Proteinuria (Primary Dx) from Last 3 Months Immunizations Name Administration Dates Next Due DTaP (Infanrix, Tripedia) 11/09/2005 Influenza, Unspecified 10/01/2002 Social History Tobacco Use Types Packs/Day Years Used Date Smoking Tobacco: Never Assessed Dental Answer Date Recorded Dental: Regular Dentist Unknown 03/15/20 24 Sex and Gender Information Value Date Recorded Sex Assigned at Not on file Gender Identity Not on file Sexual Orientation Not on file Plan of Treatment Health Maintenance Due Date Last Done Comments HIV Screening 1984 Hepatitis C Screening 1984 Mammogram 1984 Office Visit for Blood Pressure Check / Re-check 1984 Hepatitis B Vaccines (1 of 3 - 19+ 3-dose series) 2003 Depression Screening (Annual PHQ-2) 10/10/2023 COVID-19 Vaccine ( season) 2024 08/30/2022, 09/17/2021, 02/03/2021, Additional history exists Influenza Vaccine (#1) 2024 , 10/06/2020, 07/12/2019, Additional history exists Cervical Cancer Screening 02/05/2025 02/05/2022, Lipid (Cholesterol) Screening 06/04/2027 06/04/2022 DTaP,Tdap,and Td Vaccines (6 - Td or Tdap) 06/04/2034 06/04/2024, 11/13/2019, 08/11/2017, Additional history exists HPV Vaccines Aged Out No longer eligi ble based on patient's age to complete this topic Pneumococcal vaccine (0-64 years) Aged Out No longer eligible based on patient's age to complete this topic
--- OUTSIDE RECORDS SUMMARY | 2024-07-17 14:49 | XMS_ITS | Encounter Summary ---
Author Organization [facility] Address [address] [place] [address] Care Team Providers Care Intelligence Applications Name Role Phone [facility], [facility] Primary Care Provider Noel Dallas MD Unavailable Fior Mejia MD Unavailable Bee Vicente MD Primary Care Provider [phone] Bee Vicente MD Unavailable [phone] Kimber Conte APRN Unavailable Flori De Luna MD Unavailable [phone] Kecia Segovia Primary Care Provider [phone] Encounter Details Date Type Department Care Team (Late st Contact Info) Description 04/06/2022 [facility] [address] [place] [address] Ana To Social History Tobacco Use Types Packs/Day Years Used Date Smoking Tobacco: Never Smokeless Tobacco: Never Alcohol Use Standard Drinks/Week Comments Never 0 (1 standard drink = 0.6 oz pur e alcohol) AUDIT-C Answer Date Recorded Q1: How often do you have a drink containing alc ohol? Never 12/11/2020 Average Number of Drinks Not on file 021 Frequency of Binge Drinking Not on file 01/2021 PHQ-2 Answer Date Recorded PHQ-2 Score 2 04/06/2021 Sex and Gender Information Value Date Recorded [...] Noted Time PHQ-9 Depression Total Score: 8 04/07/20 21 7:03 AM CDT documented as of this encounter Care Teams Intelligence Applications Relationship Specialty Start Date End Date Clinic, [facility] [address] [place] [address] PCP - General 07/17/19 04/15/22 [place] [address] [place] [address] PCP - General Family Medicine 04/16/22 03/16/24 Kecia Segovia PA [address] [place] [address] PCP - General 03/17/24 [place] [address] [place] [address] Assigned PCP 04/12/21 04/16/22 Fior Mejia MD [address] [address] Assigned OBGYN Provider 02/07/22 [place] [address] [place] [address] Assigned PCP 04/17/22 Kimber Conte APRN CNM [facility] [address] [place] [address] Forms Analyst Midwives 01/09/24 01/09/24 Flori De Luna MD [address] [place] [address] Physician branch account executive 01/09/24 documented as of this encounter
--- OUTSIDE RECORDS SUMMARY | 2024-07-17 14:49 | XMS_ITS | Encounter Summary ---
Author Organization [facility] Address [address] [place] [address] Care Team Providers Care Commissioner Conservation Of Resources Name Role Phone Unavailable Primary Care Provider Unavailabl e Reason for Visit * Appointment Request (Routine) - Pending Review Specialty Diagnoses / Procedures Referred By Contac t Referred To Contact Nephrology and Hypertension Referral ID Status Reason Start Date Expiration Date V isits Requested Visits Authorized [id number] Pending Review 06/22/2024 06/22/2025 1 1 Encounter Details Date Type Department Care Team (Latest Contact Info) Description 07/17/2024 1:00 PM CDT External Outreach Division of Nephrology and Hypertension in [place], [place] [address] [place] [address] Janie Gomez M.D., Ph.D. [address] [place] [phone] Proteinuria (Primary Dx); Hypertension Essential Primary Social History Tobacco Use Types Packs/Day Years Used Date Smoking Tobacco: Never Assessed Dental Answer Date Recorded Dental: Regular Dentist Unknown 03/15/20 24 Sex and Gender Information Value Date Recorded Sex Assigned at Not on file Gender Identity Not on file Sexual Orientation Not on file documented as of this encounter Progress Notes * Janie Gomez M.D., Ph.D. - 07/17/2024 1:00 PM CDT SUBJECTIVE CHIEF COMPLAINT/REASON FOR VISIT Proteinuria during . HISTORY OF PRESENT ILLNESS Ms. Lafleur is a 39-year-old lady with chronic hypertension. She is 35 weeks with an expected delivery date in 2 weeks. She has been 4 times. Her third required an early delivery by few days before her expected delivery date in the third trimester due to uncontrolled hypertension. She did not have diagnosis of preeclampsia. She does not have any history of protein in the urine between pregnancies.No family history of chronic kidney disease. No rash, no swelling. Patient was diagnosed with borderline hypertension in 2021 which at the time was treated with lifestyle modifications. More recently early during this she went to the Emergency Department for uncontrolled hypertension in the 200s over 100s. She was started on labetalol 100 mg twice a day,and this medication has been increased to a current dose of 400 mg twice a day with good control of her hypertension. She is also on aspirin and taking oral iron for anemia. Overall she feels well and does not have any current concerns. She has noticed that her BP is elevated in the range of 120s-140/80s. She has been compliant with her labetalol 400 mg BID. REVIEW OF SYSTEMS All other systems were reviewed and are negative, rest as per HPI. OBJECTIVE VITAL SIGNS Blood pressure 124/72, pulse 90 DIAGNOSTICS Labs: I have reviewed available labs in detail with patient. ASSESSMENT / PLAN #1 Protein in urine #2 35 weeks of gestational age #3 Chronic hypertension Patient is referred to Nephrology for gestational proteinuria. Her PCR is 0.3 (stable) Kidney function is also stable. We will continue to monitor her protein in urine few months after delivery. Her home blood pressure readings are at goal, continue labetalol 400 mg BID. I have recommended patient to continue to monitor her blood pressure regularly at home and to follow a low salt diet. She should continue on aspirin. Her kidney function is stable with no chronic kidney disease. She is at risk to develop preeclampsia, however, no changes in her proteinuria and hypertension is at goal. Close monitoring is recommended. All questions were answered. Return in November Odilia Wyatt M.D., Ph.D. documented in this encounter Plan of Treatment Not on file documented as of this encounter Visit Diagnoses Diagnosis Proteinuria- Primary Hypertension Essential Primary documented in this encounter Additional Health Concerns Assessment Noted Time PHQ-9 Depression Total Score: 21 009 10:04 AM CDT documented as of this encounter
--- OUTSIDE RECORDS SUMMARY | 2024-07-17 14:49 | XMS_ITS | Encounter Summary ---
Author Organization [facility] Address [address] [place] [address] Care Team Providers Care Netbackup Engineer Name Role Phone [facility] Primary Care Provider Noel Dallas MD Unavailable Fior Mejia MD Unavailable Bee Vicente MD Primary Care Provider [phone] Bee Vicente MD Unavailable [phone] Kimber Conte APRN Unavailable Flori De Luna MD Unavailable [phone] Kecia Segovia Primary Care Provider [phone] Reason for Referral * Rehab Therapy Physical Therapy (Routine: Next available opening) - Closed Specialty Diagnoses / Procedures Referred By Kacie t Referred To Contact Physical Therapy [place] [address] [place] [address] [address] Referral ID Status Reason Start Date Expiration Date Visits Re quested Visits Authorized [id number] Closed 04/02/2022 04/02/2023 1 1 Question Answer Preferred Location: [facility] Services Scheduling Instructions: If you have not heard from the scheduling office within 2 business days, please call [phone] [facility], for [place] and [phone] for [place]. Course of Action Evaluation and Treatment Adult or Pediatrics Adult Specialty Services: Pelvic Health Pelvic Health: Pelvic Pain Comments Please be aware that coverage of these services is subject to the terms and limitations of your health insurance plan. Call member services at your health plan with any benefit or coverage questions. If you have not heard from the scheduling office within 2 business days, please call [phone] [facility], for [place]ha and [phone] for [place]. Reason for Visit * Reason Onset Date Comments Referral 04/02/2022 Encounter Details Date Type Department Care Team (Late st Contact Info) Description 04/02/2022 MyC Medical Advice [facility] [address] [place] [phone] [place] [address] [place] [address] Referral Social History Tobacco Use Types Packs/Day Years [...] encounter Miscellaneous Notes * Telephone Encounter - Bee Vicente MD - 04/02/2022 2:06 PM CDT Signed. * Telephone Encounter - Jack Chauhan RN - 04/02/2022 10:32 AM CDT Please see pt MyChart message. Pt was seen by J.Rickie on 03/13/22 with VV. Was advised to be seen by OB for pelvic pain. Per encounter note: Pelvic pain - discussed follow up with her OB as this seems jennifer related to her scar Pt saw OB on 02/05/22 who referred pt to PT. Per pt insurance, will not cover cost of PT unless ordered by Juan Jose. Please review and advise, order pended if appropriate. Jack Palafox RN * Telephone Encounter - Ana To - 04/02/2022 9:43 AM CDT Please advise on patients request for OBGYN referal Ana To/ Magnetic Resonance Imaging Director documented in this encounter Plan of Treatment Scheduled Referrals Name Type Priority Associated Diagnoses Orde r Schedule Physical Therapy Referral Referral Routine: Next available opening Pelvic pain Expected: 04/02/2022 (Approximate), Expires: 04/02/2023 documented as of this encounter Visit Diagnoses Diagnosis Pelvic pain- Primary Unspecified symptom associated with female genital organs documented in this encounter Additional Health Concerns Assessment Noted Time PHQ-9 Depression Total Score: 8 04/07/20 21 7:03 AM CDT documented as of this encounter Care Teams Netbackup Engineer Relationship Specialty Start Date End Date [facility] [address] [place] [address] PCP - General 07/17/19 04/15/22 [place] [address] [place] [address] PCP - General Family Medicine 04/16/22 03/16/24 Kecia Segovia PA [address] [facility] [address] PCP - General 03/17/24 [place] [address] [place] [address] Assigned PCP 04/12/21 04/16/22 Fior Mejia MD [address] [place] [address] Assigned OBGYN Provider 02/07/22 [place] [address] [place] [address] Assigned PCP 04/17/22 Kimber Conte APRN CNM [facility] [address] [place] [address] Leather Heel Breaster Midwives 01/09/24 01/09/24 Flori De Luna MD [address] [place] [address] Physician oncology physician 01/09/24 documented as of this encounter
--- OUTSIDE RECORDS SUMMARY | 2024-07-17 14:49 | XMS_ITS | Encounter Summary ---
Author Organization [facility] Address [address] [place] [address] Care Team Providers Care Turbo Electric Operator Name Role Phone Unavailable Primary Care Provider Unavailabl e Reason for Visit * Appointment Request (Routine) - Pending Review Specialty Diagnoses / Procedures Referred By Contac t Referred To Contact Nephrology and Hypertension Referral ID Status Reason Start Date Expiration Date V isits Requested Visits Authorized [id number] Pending Review 06/14/2024 06/14/2025 1 1 Encounter Details Date Type Department Care Team (Latest Contact Info) Description 06/18/2024 4:00 PM CDT External Outreach Division of Nephrology and Hypertension in [place], [place] [address] [place] [address] Janie Gomez M.D., Ph.D. [address] [place] [phone] Proteinuria (Primary Dx); Hypertension Essential Primary Social [...] Notes * Janie Gomez M.D., Ph.D. - 06/18/2024 4:00 PM CDT Referring Provider: No ref. provider found SUBJECTIVE CHIEF COMPLAINT/REASON FOR VISIT Proteinuria during . HISTORY OF PRESENT ILLNESS Ms. Lafleur is a 39-year-old lady with chronic hypertension. She is 31 weeks with an expected delivery date August 17, 2024. She has been 4 times. Her third required an early delivery by few days before her expected delivery date in the third trimester due to uncontrolled hypertension. She did not have diagnosis of preeclampsia. She does not have any history of proteinin the urine between pregnancies. No family history of chronic kidney disease. No [...] been increased to a current dose of 300 mg twice a day with good control of her hypertension. She is also on aspirin and taking oral iron for anemia. She has been scheduled toreceive IV iron supplementation for treatment of chronic anemia. Overall she feels well and does not have any current concerns. She has noticed that her BP is elevated in the range of 130s-140/80s. She has been compliant with her labetalol 300 mg BID. REVIEW OF SYSTEMS All other systems were reviewed and are negative, rest as per HPI. OBJECTIVE VITAL SIGNS Blood pressure 140/78, pulse 87 DIAGNOSTICS Labs: I have reviewed available labs in detail with patient. ASSESSMENT / PLAN #1 Protein in urine #2 31 weeks of gestational age #3 Chronic hypertension Patient is referred to Nephrology for gestational proteinuria. She had a 24-hour urine collection that showed proteinuria in the 500 mg range. This is increased from prior. Her PCR is 0.3 (increased from 0.2) We will continue to monitor her protein in urine. Due to rise in home blood pressure readings, I have increased her labetalol to 400 mg BID. I have recommended patient to continue to monitor her blood pressure regularly at home and to follow a low salt diet. She should continue on aspirin. Her kidney function is stable with no chronic kidney disease. She is at risk to develop preeclampsia, however, these mild changes on proteinuria and hypertensionlikely do not represent preeclampsia at this time yet as they are only mild. However, close monitoring is recommended. I have discussed antihypertensive changes with her OBGYN Dr. Garza. All questions were answered. Return in 1 month. Odilia Wyatt M.D., Ph.D. documented in this encounter Plan of Treatment Not on file documented as of this encounter Visit Diagnoses Diagnosis Proteinuria- Primary Hypertension Essential Primary documented in this encounter Additional Health Concerns Assessment Noted Time PHQ-9 Depression Total Score: 21 04/04/ 009 10:04 AM CDT documented as of this encounter
--- OUTSIDE RECORDS SUMMARY | 2024-07-17 14:49 | XMS_ITS | Encounter Summary ---
Author Organization [facility] Address [address] [place] [address] Care Team Providers Care V Belt Curer Name Role Phone Unavailable Primary Care Provider Unavailabl e Encounter Details Date Type Department Care Team (Late st Contact Info) Description 05/24/2024 Clinical Communication Division of Nephrology and Hypertension in [place], [place] [address] [place] [phone] Janie Gomez M.D., Ph.D. [address] [place] [phone] Social History Tobacco Use Types Packs/Day Years Used Date Smoking Tobacco: Never Assessed Dental Answer Date Recorded Dental: Regular Dentist Unknown 03/15/20 24 Sex and Gender Information Value Date Recorded Sex Assigned at Not on file Gender Identity Not on file Sexual Orientation Not on file documented as of this encounter Miscellaneous Notes * Telephone Encounter - Janie Gomez M.D., Ph.D. - 05/24/2024 3:52 PM CDT Labs reviewed. Proteinuria int he 300 mg range. We will continue to monitor. Odilia Wyatt M.D., Ph.D. * Telephone Encounter - Janie Gomez M.D., Ph.D. - 05/24/2024 3:52 PM CDT ----- Message from Melissa Upton sent at 05/17/2024 1:44 PM CDT ----- Regarding: FW: 05/15/24 Urine Results Urine results are viewable under the media tab dated 05/17/24 ----- Message ----- From: Jacklyn Garcia Sent: 05/16/2024 9:02 AM CDT To: Alyx Car Chasity Subject: FW: 05/15/24 Urine Results ##This message is being forwarded to you as you were the original intended recipient## Please see message below (you may need to click the Previous Message header to view). If you are needing to respond, please click reply, remove my name, and add the original sender, Krissy Brand R.N., in the To: section. If further action is needed on your end, please enlist your staff to assist as this message is onlybeing forwarded to you. Thank you. ----- Message ----- From: Krissy Brand R.N. Sent: 05/16/2024 8:48 AM CDT To: Rst [facility]ps Subject: 05/15/24 Urine Results 05/15/24 Urine Results uploaded documented in this encounter Plan of Treatment Not on file documented as of this encounter Visit Diagnoses Not on filedocumented in this encounter Additional Health Concerns Assessment Noted Time PHQ-9 Depression Total Score: 21 04/04/2 009 10:04 AM CDT documented as of this encounter
--- OUTSIDE RECORDS SUMMARY | 2024-07-17 14:49 | XMS_ITS ---
Author Organization [facility] Address [address] [place] [address] Care Team Providers Care Radiologic Therapist Name Role Phone Unavailable Unavailable Unavailable Surgery Details Not on file Complications Check Surgery Details section. Procedure Estimated Blood Loss Check Surgery Details section. Procedure Findings Check Surgery Details section. Procedure Specimens Taken Check Surgery Details section.
--- OUTSIDE RECORDS SUMMARY | 2024-07-17 14:49 | XMS_ITS | Referral Summary ---
Author Organization [facility] Address [address] [place] [address] Care Team Providers Care Electroplater Apprentice Name Role Phone Unavailable Primary Care Provider Unavailabl e Source Comments Patient records contain information from all sites at [facility]. For routine questions regarding patient records, call [phone] during business hours, M-F 8:00 AM - 5:00 PM Central Time. Record requests for emergency care only can be directed to [phone] at any time.[facility] Encounters Date Type Department Care Team Description 07/17/2024 1:00 PM CDT External Outreach Division of Nephrology and Hypertension in [address] [address] Janie Gomez M.D., Ph.D. Proteinuria (Primary Dx); Hypertension Essential Primary 06/18/2024 4:00 PM CDT External Outreach Division of Nephrology and Hypertension in [address] [address] Janie Gomez M.D., Ph.D. Proteinuria (Primary Dx); Hypertension Essential Primary 05/24/2024 Clinical Communication Division of Nephrology and Hypertension in [address] [address] Janie Gomez M.D., Ph.D. 04/24/2024 3:30 PM CDT External Outreach Division of Nephrology and Hypertension in [address] [address] Janie Gomez M.D., Ph.D. Proteinuria (Primary Dx) from Last 3 Months Medications Medication Sig Dispensed Refills Start Date End Date Status labetaloL 200 mg tablet Take 2 tablets (400 mg total) by mouth 2 (two) times a day. 120 tablet 11 06/18/2024 06/18/2025 Active Active Problems Problem Noted Date Diagnosed Date Hypertension Essential Primary 07/17/2024 Proteinuria 04/26/2024 Immunizations Name Administration Dates Next Due DTaP (Infanrix, Tripedia) 11/09/2005 Influenza, Unspecified 10/01/2002 Social History Tobacco Use Types Packs/Day Years Used Date Smoking Tobacco: Never Assessed Dental Answer Date Recorded Dental: Regular Dentist Unknown 03/15/20 24 Sex and Gender Information Value Date Recorded Sex Assigned at Not on file Gender Identity Not on file Sexual Orientation Not on file Plan of Treatment Not on file
--- OUTSIDE RECORDS SUMMARY | 2024-07-17 14:49 | XMS_ITS | Encounter Summary ---
Author Organization [facility] Address [address] [place] [address]. [place] [address] Care Team Providers Care Director Geophysical Laboratory Name Role Phone Fior Mejia MD Unavailable Bee Vicente MD Primary Care Provider [phone] Bee Vicente MD Unavailable [phone] Kimber Conte APRN Unavailable Flori De Luna MD Unavailable [phone] Kecia Segovia Primary Care Provider [phone] Reason for Referral * Consultation (Routine: Next available opening) - Closed Specialty Diagnoses / Procedures Referred By Kacie rachel Referred To Contact Otolaryngology Diagnoses Lipoma [place] [address] [place] [address] [facility] [address] Referral ID Status Reason Start Date Expiration Date Visits Re quested Visits Authorized [id number] Closed 06/17/2022 06/17/2023 1 1 Question Answer Reason for Referral: Other My Clinical Question Is: lipoma Scheduling Instructions: [facility] will call you to coordinate your care as prescribed by the provider. If you don? t hear from a client care representative within 2 business days, please call [phone]. Comments Please be aware that coverage of these services is subject to the terms and limitations of your health insurance plan. Call member services at your health plan with any benefit or coverage questions. [facility] will call you to coordinate your care as prescribed by the provider. If you don? t hear from a client care representative within 2 business days, please call [phone]. Encounter Details Date Type Department Care Team (Late st Contact Info) Description 06/16/2022 MyC Medical Advice [facility] [address] [place] [address] [place] [address] [place] [address] Lipoma of skin and subcutaneous tissue (Primary Dx) Social History Tobacco Use Types Packs/Day Years [...] often do you attend chur ch or christian services? Never 06/04/2022 Do you belong to any clubs o r organizations such as gnosticist groups, unions, fraternal or athletic groups, or [...] Answer Date Recorded PHQ-2 Score 3 06/04/2022 [facility] - Occupational [...] place to sleep or slept in a longterm (including now)? No 06/04/2022 Sex and Gender Information Value Date Recorded Sex Assigned at Female 03/05/2021 2:58 PM CDT Gender Identity Female 03/05/2021 2:58 PM CDT Sexual Orientation Straight 03/05/2021 2: 58 PM CDT COVID-19 Exposure Response Date Recorded In the last 10 days, have yo u been in contact with someone who was confirmed or suspected to have Coronavirus/COVID-19? No / Unsure 06/04/2022 10:09 AM CDT documented as of this encounter Miscellaneous Notes * Telephone Encounter - Bee Vicente MD - 06/17/2022 10:14 AM CDT done * Telephone Encounter - Miriam Miranda RN - 06/16/2022 3:46 PM CDT See my chart with request for ENT referral. Miriam Miranda RN documented in this encounter Plan of Treatment Scheduled Referrals Name Type Priority Associated Diagnoses Orde r Schedule Adult ENT Supervisor Fitting Referral Referral Routine: Next available opening Lipoma of skin and subcutaneous tissue Expected: 06/17/2022 (Approximate), Expires: 06/17/2023 documented as of this encounter Visit Diagnoses Diagnosis Lipoma of skin and subcutaneous tissue- Primary Lipoma of other skin and subcutaneous tissue documented in this encounter Additional Health Concerns Assessment Noted Time PHQ-9 Depression Total Score: 8 06/04/20 22 10:15 AM CDT documented as of this encounter Care Teams Director Geophysical Laboratory Relationship Specialty [place] [address] [place] [address] PCP - General Family Medicine 04/16/22 03/16/24 Kecia Segovia PA [address] [place] [address] PCP - General 03/17/24 Fior Mejia MD [address] [address] Assigned OBGYN Provider 02/07/22 [place] [address] [place] [address] Assigned PCP 04/17/22 Kimber Conte APRN CNM [facility] [address] [place] [address] [facility] 01/09/24 01/09/24 Flori De Luna MD [address] [place] [address] Physician dry mill worker 01/09/24 documented as of this encounter
--- OUTSIDE RECORDS SUMMARY | 2024-07-17 14:49 | XMS_ITS | Clinical Summary ---
Author Organization [facility] Address [place], [place] [address] Care Team Providers Care Tree Deadener Name Role Phone Clinic, [facility] Primary Care Pr ovider Allergies No known active allergies Medications Medication Sig Dispensed Refills Start Date End Date Status vitamin-folic acid 1 mg ( VITAMIN) tablet/capsule Take 1 tablet by mouth once daily. 0 04/16/2015 Active sertraline (ZOLOFT) 100 mg tablet Take 100 mg by mouth once daily. 02/11/2023 Active buPROPion (WELLBUTRIN XL) 150 mg Extended-Release tablet Take 300 mg by mouth once daily. 05/23/2023 Active labetaloL (TRANDATE) 100 mg tabletIndications:Pr e-existing essential hypertension during in first trimester Take 1 Tablet (100 mg) by mouth two times daily. 60 Tablet 01/04/2024 Active Additional Information Patient not taking.Reported on 04/18/2024 FeroSuL 325 mg (65 mg iron) tablet Take 325 mg by mouth once every other day. 02/01/2024 Active aspirin chewable 81 mg chewable tablet Chew 81 mg by mouth once daily. Active labetaloL (TRANDATE) 300 mg tablet Take 300 mg by mouth two times daily. 02/29/2024 Active Active Problems Problem Noted Date Diagnosed Date HTN (hypertension) 01/04/2024 Major depressive disorder, recurrent, mild 01/03 KODY (generalized anxiety disorder) 01/04/2024 Comments Yes Encounters Date Type Department Care Team Description 07/09/2024 Orders Only [facility] Scanner 1 scan: (1-Ord) [facility] OB BIOPHYSICAL PROFILE, 07/09/2024 07/03/2024 Orders Only [facility] Scanner 1 scan: (1-Ord) [facility], OB BIOPHYSICAL PROFILE, 07/03/2024 06/26/2024 Orders Only [facility] Scanner 1 scan: (1-Ord) [place], OB BPP W/ OB F/U, 06/26/2024 04/18/2024 1:00 PM CDT Office Visit [address] [phone] Bee Corral PA Consult (throat clearing, nasal drip) 04/18/2024 Travel from Last 3 Months Immunizations Name Administration Dates Next Due COVID-19 VACCINE SPIKEVAX (M ODERNA 50MCG/0.5ML) 12YO+ PFS 01/04/2024 DTaP 11/09/2005 Influenza Virus, Unspecified 10/01/2002 Influenza, IIV4 08/30/2022, 0,07/12/2019,2017,08/11/2017,08/19/2016,07/21/2015 Rabies Vaccine 03/04/2014,02/11/2014 Tdap 11/13/2019,08/11/2017,07/08/2015 Family History Medical History Relation Name Comments Good Health Father Good Health Mother Anesthesia Problem No Family History Blood Disease No Family History Relation Name Status Comments Father Mother Social History Tobacco Use Types Packs/Day Years Used Date Smoking Tobacco: Never Passive Smoke Exposure: Never Smokeless Tobacco: Never Tobacco Cessation:Counseling Given: Not Answered Alcohol Use Standard Drinks/Week Comments No 0 (1 standard drink = 0.6 oz pur e alcohol) PHQ-2 Answer Date Recorded PHQ-2 TOTAL SCORE 2 01/04/2024 Social Connections Answer Date Recorded Frequency of Communication with Friends and Fami ly 0 01/04/2024 Financial Resource Strain Answer Date R ecorded Difficulty of Paying Living Expenses 3 01/04/2024 Difficulty of Paying Living Expenses Not on file 01/04/2024 Food Insecurity Answer Date Recorded Worried About Running Out of Food in the Last Ye ar 1 01/04/2024 Transportation Needs Answer Date Record ed Lack of Transportation (Medical) 1 01/04/2024 Housing Stability Answer Date Recorded Unable to Pay for Housing in the Last Year 1 01/04/2024 Comments Yes Sex and Gender Information Value Date Recorded Sex Assigned at Not on file Gender Identity Not on file Sexual Orientation Not on file Obstetrics History Para Term AB IAB SAB Ectopic Multiple Livin g Live Births 2 Date Outcome GA Total Labor Labor/2nd/3rd Weight Sex Type Anes PTL Hannah A1 A5 Name Clin Current Last Filed Vital Signs Vital Sign Reading Time Taken Comments Blood Pressure 118/76 03/12/2024 8:34 AM CDT Pulse 80 03/12/2024 8:34 AM CDT Temperature 36.7 ??C (98 ??F) 03/12/2024 8:34 AM CDT Respiratory Rate - - Oxygen Saturation 97% 03/12/2024 8:34 AM CDT Inhaled Oxygen Concentration - - Weight 97.4 kg (214 lb 12.8 oz) 03/12/2024 8:34 AM CDT Height 163.2 cm (5' 4.27) 03/12/2024 8:34 AM CD T Body Mass Index 36.56 03/12/2024 8:34 AM CDT Plan of Treatment Health Maintenance Due Date Last Done Comments HIV for age 15-65 1999 Hepatitis C screening for age 18-79 2002 COVID-19 vaccine series ( season) 2024 01/04/2024, 08/30/2022, 09/17/2021, Additional history exists Influenza for age 9-49 06/10/2024 2, 10/06/2020, 07/12/2019, Additional history exists Depression screening for age 12+ 01/03/2025 01/04/2024, 01/04/2024 BMI (ht and wt on same day) for age 18+ 03/12/2025 03/12/2024, 01/04/2024 Pap test for age 21-65 02/05/2027 (Verified in Care Everywhere or Patient Record), 03/23/2017, 03/23/2017 Tetanus booster 11/13/2029 11/13/2019, 11/2016, 07/08/2015 RSV vaccine for adults or (1 - 1-dose 75+ series) 2059 Tdap Completed 11/13/2019, 11/2016, 07/08/2015 Pneumococcal series for age 6-64 Aged Out No longer eligible based on patient's age to complete this topic Procedures Procedure Name Priority Date/Time Associated Diagnosis Comments SCAN-ULTRASOUND REPORT 07/09/2024 12:00 AM CDT SCAN-ULTRASOUND REPORT 07/03/2024 12:00 AM CDT SCAN-ULTRASOUND REPORT 06/26/2024 12:00 AM CDT VP [employer] DIVERSITY THIN PREP PAP SCREEN IMAGED Routine 03/23/2017 1:30 PM CDT from Last 3 Months or Most Recently Relevant to Health Maintenance Results * SCAN-ULTRASOUND REPORT (07/09/2024 12:00 AM CDT) Only the most recent of3 resultswithin the time period is included. Anatomical Region Laterality Modality Other Scanner OTHER * VP [employer]ERS[employer] THIN PREP PAP SCREEN IMAGED (03/23/2017 1:30 PM CDT) Case Report Gynecologic Cytology Report ? Case: [id number] ? Authorizing Provider: ??Fior Mejia MD ?Collected: ? 03/23/2017 1330 ? First Screen: ?Lizzeth Ham ?Received: ?03/23/2017 1803 ? Specimen: ?VP HR DIVERSITY ThinPrep Vial Screening, Cervical/Vaginal ? 03/30/2017 8:39 AM CDT [facility] INTERPRETATION/ RESULT NEGATIVE FOR INTRAEPITHELIAL LESION OR MALIGNANCY (NIL) (none) 03/30/2017 8:39 AM CDT [facility] IMEN ADEQUACY Satisfactory for evaluation Endocervical component present 03/30/2017 8:39 AM CDT [facility] HPV REQUEST HPV and PAP 03/30/2017 8:39 AM CDT [facility] Last Pap Date 03/30/2017 8:39 AM CDT [facility] Comment:2012 Last Pap Result NIL 8:39 AM CDT [facility] Menstrual Status 03/30/2017 8:39 AM CDT [facility] Automated Review Successful 03/30/2017 8:39 AM T [facility] Comment:Specimen processed s uccessfully by automated bar tacker sewing machine device, ThinPrep Imaging System, [employer] ANCILLARY TESTING [employer]ERS[employer] HPV Ordered, Please see separate report 03/30/2017 8:39 AM T [facility] Note The pap test is a screening technique, not a diagnostic procedure. ??It is used primarily to screen for squamous cancers and precursor lesions. ??Published studies have shown that it is subject to both false negative and false positive results. ??The pap test should not be used as the sole means to diagnose or exclude pre-malignant and malignant lesions. Interpreted at [facility] ([facility], [facility], [facility], [facility], [facility], [facility], [facility]) 03/30/2017 8:39 AM T [facility] Other (Cervical/Vagina l) 03/23/2017 1:30 PM CDT 03/23/2017 6:03 PM CDT Fior Mejia MD PATHOLOGY/CYTOLOGY [facility] [address] [place] [address], [place] from Last 3 Months or Most Recently Relevant to Health Maintenance Care Teams Tree Deadener Relationship Specialty Start Date End Date Clinic, [facility] [address] [place] [address] PCP - General 05/21/24
--- OUTSIDE RECORDS SUMMARY | 2024-07-17 14:49 | XMS_ITS | Encounter Summary ---
Author Organization [facility] Address [address] [place] [address] Care Team Providers Care Account Development Representative Name Role Phone Unavailable Primary Care Provider Unavailabl e Reason for Visit * Appointment Request (Routine) - Pending Review Specialty Diagnoses / Procedures Referred By Kacie rachel Referred To Contact Nephrology and Hypertension Iwona Garza M.D. [address] [place] [address] Referral ID Status Reason Start Date Expiration Date V isits Requested Visits Authorized [id number] Pending Review 03/15/2024 03/15/2025 1 1 Encounter Details Date Type Department Care Team (Latest Contact Info) Description 04/24/2024 3:30 PM CDT External Outreach Division of Nephrology and Hypertension in [place], [place] [address] [place] [phone] Janie Gomez M.D., Ph.D. [address] [place] [phone] Proteinuria (Primary Dx) Social History Tobacco Use Types Packs/Day Years Used Date Smoking Tobacco: Never Assessed Dental Answer Date Recorded Dental: Regular Dentist Unknown 03/15/20 24 Sex and Gender Information Value Date Recorded Sex Assigned at Not on file Gender Identity Not on file Sexual Orientation Not on file documented as of this encounter Progress Notes * aJnie Gomez M.D., Ph.D. - 04/24/2024 3:30 PM CDT Referring Provider: Iwona Garza M.D. SUBJECTIVE CHIEF COMPLAINT/REASON FOR VISIT Proteinuria during . HISTORY OF PRESENT ILLNESS Ms. Lafleur is a 39-year-old lady with chronic hypertension. She is 23 weeks with an expected delivery date expected on August 17, 2024. She has been 4 times. Her third required an early delivery by few days before her expected delivery date in the third trimester due touncontrolled hypertension. She did not have diagnosis of preeclampsia. She does not have any history of protein in the urine between pregnancies. No family history of chronic kidney disease. No rash,no swelling. Patient was diagnosed with borderline hypertension [...] IV iron supplementation for treatment of chronic anemia with a hemoglobin of 10.2. Overall she feels well and does not have any current concerns. She has gained about 14 pounds during this . REVIEW OF SYSTEMS All other systems were reviewed and are negative, rest as per HPI. OBJECTIVE VITAL SIGNS Blood pressure 108/71, pulse 77, weight 227.2. PHYSICAL EXAMINATION General: No acute distress, breathing comfortably. Heart: Regular rate and rhythm. No murmurs, rubs or gallops. Respiratory: Regular inspiratory effort. No wheezes, no rhonchi. Abdomen: Soft, not tender, not distended. Present bowel sounds. Extremities: Full range of motion. Normal gait. No edema in lower extremities Neuro: No focal deficits. Alert and oriented X 4. Skin: Warm. No rashes. Psych: Answers questions appropriately. No signs of anxiety or depression noted. DIAGNOSTICS Labs: I have reviewed available labs in detail with patient. ASSESSMENT / PLAN #1 Protein in urine #2 Twenty-three weeks of gestational age #3 Chronic hypertension Patient is referred to Nephrology for gestational proteinuria. She had a 24-hour urine collection that showed proteinuria in the 300 mg range. We will continue to monitor her protein in urine. We will order a 24-hour collection for this week and repeat one in June of 2024. I have recommended patient to continue to monitor her blood pressure regularly at home and to follow a low salt diet. She should continue on aspirin. Her kidney function is stable with no chronic kidney disease. All questions were answered. We will continue to monitor along during her every 2 months. Odilia Wyatt M.D., Ph.D. CT CT Job ID: [id number] documented in this encounter Plan of Treatment Not on file documented as of this encounter Visit Diagnoses Diagnosis Proteinuria- Primary documented in this encounter Additional Health Concerns Assessment Noted Time PHQ-9 Depression Total Score: 21 009 10:04 AM CDT documented as of this encounter
[2024-07-18 17:46] LABS: Strep B DNA Probe Negative (Negative)
[2024-07-18 18:06] LABS: Strep B Susceptibility Needed? No
== END 2024-07-17 14:37 | disposition home or self-care (01) ==
LOC: NFLDREF 14:36
PROVIDERS: PCP Student in an Organized Health Care Education/Training Program; Visit Provider Obstetrics & Gynecology
DX: Z34.93 Encounter for supervision of normal pregnancy, unspecified, third trimester (principal); Z3A.35 35 weeks gestation of pregnancy
CPT/HCPCS: 82565; 82570; 84156; 84450; 84460; 84520; 87081; 87653

== ENCOUNTER 2024-07-24 13:52 | Outpatient (CLI) | payer BC, SELFPAY ==
--- NOTE | 2024-07-24 14:00 | CRLHL7_ITS ---
For Patients: As a result of the Century Cures Act, medical imaging exams and procedure reports are released immediately into your electronic medical record. You may view this report before your referring provider. If you have questions, please contact your health care provider. INDICATION: HTN, AMA TECHNIQUE: Real time dotson scale imaging of the fetus was performed. COMPARISON: 07/09/2024 FINDINGS: Sonographic imaging demonstrates a single living intrauterine gestation. Fetus demonstrates a regular cardiac rate of 134 beats per minute. Fetus has a vertex position. The placenta lies anteriorly. Amniotic fluid volume appears normal and there is a single deepest pocket of 7.6 cm. The estimated weight is 3190gm which lies at the 78th %. On the prior OB ultrasound dated 06/26/2024 the estimated weight was at the 70th percentile. BPD 44th percentile. HC 91st percentile. AC greater than 97th percentile. FL less than 3rd percentile. The fetus was active and demonstrated normal breathing movements. There was normal flexion and extension of the trunk and extremities. IMPRESSION: Normal biophysical profile score 8/8. Sonographic gestational age 37 weeks 0 days and sonographic due date 08/14/2024. Good correlation with dates. Estimated weight is 78th percentile. Abdominal circumference greater than 97th percentile. FL less than 3rd percentile. Dictated by Ricky Clifford MD @ 07/25/2024 9:59:54 AM (Electronically Signed)
== END 2024-07-24 13:53 | disposition home or self-care (01) ==
PROVIDERS: PCP Student in an Organized Health Care Education/Training Program; Visit Provider Obstetrics & Gynecology
DX: O10.913 Unspecified pre-existing hypertension complicating pregnancy, third trimester (principal); O09.523 Supervision of elderly multigravida, third trimester; Z3A.37 37 weeks gestation of pregnancy
CPT/HCPCS: 76816; 76819; 82565; 82570; 84156; 84450; 84460; 84520

== ENCOUNTER 2024-07-31 05:51 | Inpatient (IN) | payer BC, SELFPAY ==
[2024-07-31] VITALS (37 sets, daily range): BP systolic 103–148; BP diastolic 54–79; PULSE 71–97; RESP 16; TEMP 36.4–37.1; O2SAT 95–98; BMI 39.9
--- OUTSIDE RECORDS SUMMARY | 2024-07-31 05:54 | XMS_ITS | Clinical Summary ---
Author [facility] Address [address], [place] [address] Care Team Providers Care Deputy Of Counter Intelligence Name Role Phone Bee Araiza APRN, CNP Primary Care Provide r Source Comments You are receiving this document as you are listed as the primary care provider,follow-up provider, or the patient has been referred to you for consultation.This is in compliance with the Medicare andJoint [facility] Hospitalcaid EHR Incentive Program,which states Providers who transition their patient to another setting of careor provider of care or refers their patient to another provider of care shouldprovide summary care record for each transition of care or referral. [facility] Allergies No known active allergies Medications Medication [...] Encounters Date Type Department Care Team Description 07/30/2024 [facility] [address] [facility] [place], [place] [address] Bee Araiza APRN, CNP Refill (buPROPion (WELLBUTRIN XL) 150 MG 24 hour release tablet [Pharmacy Med Name: BUPROPION XL 150MG TABLETS (24 H)]) 05/06/2024 [facility] [address] [place] [address] Bee Araiza, BELT BUCKLE MAKER, FARM MACHINERY ENGINE MECHANIC Refill (buPROPion (WELLBUTRIN XL) 150 MG 24 hour release tablet [Pharmacy Med Name: BUPROPION XL 150MG TABLETS (24 H)]) from Last 3 Months Immunizations Name Administration Dates Next Due DTaP 11/09/2005 Hdcv - Rabies Vaccine 03/04/2014,02/11/2014 Influenza IIV4 (Quadrivalent ) 0.5mL (62505) 08/30/2022,10/06/2020,07/12/2019,2017,08/11/2017,08/19/2016,07/21/2015 Influenza, Unspecified Formulation 10/01/2002 Pfizer Bivalent 12+ 08/30/2022 Pfizer Monovalent 12+ Purple Top 09/17/2021,01/09,01/13/2021 Tdap 11/13/2019,08/11/2017,07/08/2015 Family History Medical History Relation Name Comments Depression Mother Mayi Heart Disease Mother Mayi Atrial fib, hy pertension Hypertension Mother Myai Asthma Brother 1 Juan Depression Brother 2 Gen Asthma Maternal Grandmother Marlene Relation Name Status Comments Mother Mayi Brother 1 Juan Brother 2 Gen Maternal [...] (Com pleted) DTaP/Tdap/Td (5 - Tdap) 11/13/2029 11/13/19 20, 08/11/2017, 07/08/2015, Additional history exists Zoster/Shingles (1 [...] age to complete this topic Care Teams Deputy Of Counter Intelligence Relationship Specialty Start Date End Date Bee Araiza, BELT BUCKLE MAKER, FARM MACHINERY ENGINE MECHANIC [address] [place], [place] [address] PCP - General Nurse Practitioner 02/11/23
--- OUTSIDE RECORDS SUMMARY | 2024-07-31 05:54 | XMS_ITS | Encounter Summary ---
Author Organization [facility] Address [address] [place] [address] Care Team Providers Care Electronics Utility Worker Name Role Phone Bee Araiza APRN, CNP Primary Care Provide r Reason for Visit * Reason Comments Refill buPROPion (WELLBUTRI N XL) 150 MG 24 hour release tablet [Pharmacy Med Name: BUPROPION XL 150MG TABLETS (24 H)] Encounter Details Date Type Department Care Team (Late st Contact Info) Description 07/30/2024 [facility] [address] [place] [address] Bee Araiza APRN, CNP [address] [place], [place] [phone] Refill (buPROPion (WELLBUTRIN XL) 150 MG 24 [...] on file documented as of this encounter Plan of Treatment Not on file documented as of this encounter Visit Diagnoses Not on filedocumented in this encounter Care Teams Electronics Utility Worker Relationship Specialty Start Date End Date Bee Araiza, CONSULTANT ELECTRONICS, PASSENGER TRAIN BRAKER [address] [place] [address] PCP - General Nurse Practitioner 02/11/23 documented as of this encounter
--- OUTSIDE RECORDS SUMMARY | 2024-07-31 05:54 | XMS_ITS | Encounter Summary ---
Author Organization [facility] Address [address] [place] [address] Care Team Providers Care Taxi Proprietor Name Role Phone Bee Araiza APRN, CNP Primary Care Provide r Reason for Visit * Reason Comments Depression Registry Call 1 Call pt back in 2-5 days if no answer Encounter Details Date Type Department Care Team (Late st Contact Info) Description 04/09/2024 [facility] [address] [place] [address] Bee Araiza APRN, CNP [address] [place] [address] Depression Registry Call 1 (Call [...] Center (PSC), please warm transfercall to extension [phone] to discuss. If no answer at extension, re-route to CSS (Clinical Manager System). Message to Patient/Caller: Contacted patient to complete PHQ9. Outcome of call: Left message. Krissy Bellamy LPN 04/09/2024, 1:41 PM documented in this encounter Plan of Treatment Not on file documented as of this encounter Visit Diagnoses Not on filedocumented in this encounter Care Teams Taxi Proprietor Relationship Specialty Start Date End Date Bee Araiza, SURVEY METHODOLOGIST, SIGNAL APPRENTICE [address] [place] [address] PCP - General Nurse Practitioner 02/11/23 documented as of this encounter
--- OUTSIDE RECORDS SUMMARY | 2024-07-31 05:54 | XMS_ITS | Encounter Summary ---
Author Organization [facility] Address [address] [place] [address] Care Team Providers Care Cage Tender Name Role Phone Bee Fitch APRN, CNP Primary Care Provide r Reason for Visit * Reason Comments Refill buPROPion (WELLBUTRI N XL) 150 MG 24 hour release tablet [Pharmacy Med Name: BUPROPION XL 150MG TABLETS (24 H)] Encounter Details Date Type Department Care Team (Late st Contact Info) Description 05/06/2024 [facility] [address] [place] [address] Bee Fitch APRN, CNP [address] [place], [place] [id number] Refill (buPROPion (WELLBUTRIN XL) 150 MG 24 [...] need a visit for any further refills. [phone] to schedule. * Bee Fitch APRN, CNP - 05/07/2024 4:52 PM CDT Please let patient know the prescription was sent to their pharmacy and help schedule a medication follow up visit with financial services representative. There will be no further refills until [...] CDT Further Assistance Needed on Refill from Learning Disabilities Resource Teacher Patient is due for Qualifying Visit [...] Age: 39 [employer] Embedded Refills, Reference: [id number], 05/06/2024 9:51:32 AM CDT, Pool: ANG Refill Centralized Services - Primary Care [[id number]] ([id number]) documented in this encounter Plan of Treatment Not on file documented as of this encounter Visit Diagnoses Not on filedocumented in this encounter Care Teams Cage Tender Relationship Specialty Start Date End Date Bee Fitch, RAMIRO, SALES AGENT TRADING STAMPS [address] [place] [address] PCP - General Nurse Practitioner 02/11/23 documented as of this encounter
--- OUTSIDE RECORDS SUMMARY | 2024-07-31 05:55 | XMS_ITS | Clinical Summary ---
Author Organization [facility] Address [address] [place] [address] Care Team Providers Care Double Bass Player Name Role Phone Fior Mejia MD Unavailable Bee Vicente MD Unavailable [phone] Flori De Luna MD Unavailable [phone] Kecia Segovia Primary Care Provider [phone] Allergies No known active allergies Medications Medication [...] 02/02/2024 AMA (advanced maternal age) multigravida 35+ 3 02/02/2024 Pain of right upper arm 03/13/202105/11 [...] often do you attend chur ch or anabaptism services? Never 06/04/2022 Do you belong to any clubs o r organizations such as moravian groups, unions, fraternal or athletic groups, or [...] Answer Date Recorded PHQ-2 Score 3 06/04/2022 [facility] - Occupational [...] money to buy more. Never true 06/04/20 Within the past 12 months, t he [...] place to sleep or slept in a senior care (including now)? No 06/04/2022 Adolescent Education Answer [...] 2024 , 10/06/2020, 07/12/2019, Additional history exists GROUP B STREP SCREENING 07/20/2024 YEARLY PREVENTIVE [...] patient's age to complete this topic RSV VACCINE (No Doses Required) Completed Procedures Procedure Name Priority Date/Time Associated Diagnosis Comments ABSTRACT HIV Routine 01/31/2024 2:49 PM CDT HEPATITIS C (HIM EXTERNAL RESULT) Routine 01/31/2024 2:49 PM CDT GLUCOSE (EXTERNAL RESULT) Routine 01/05/2024 10:48 PM CDT LIPID REFLEX TO DIRECT LDL PANEL Routine 06/04/2022 11:12 AM CDT Routine general medical examination at a health care facility GYNECOLOGIC CYTOLOGY Routine 02/05/2022 3:37 [...] Recently Relevant to Health Maintenance Results * ABSTRACT HIV (01/31/2024 2:49 PM CDT) HIV 1&2 EXT Non-Reacti ve [facility] Blood 01/31/2024 2:49 PM CDT [facility] - 01/31/2024 2:49 PM CDT FORMERLY NAMED [facility] - External Lab Results Provider Outside LAB - [facility] EXTERNAL R ESULT Performing Organization Address City/[facility]/ZIP Co de Phone Number [facility] [address] [place] [address], [facility] [phone] * Hepatitis C (HIM External Result) (01/31/2024 2:49 PM CDT) Hep C HIM See Scanned Document [facility] 01/31/2024 2:49 PM CDT [facility] - 01/31/2024 2:49 PM CDT [facility] NAMED [facility] - External Lab Results Provider Outside LAB - [facility] EXTERNAL R ESULT Performing Organization Address City/[facility] Co de Phone Number [facility] [address] [place] [address], [facility] [phone] * Glucose (External Result) (01/05/2024 10:48 PM CDT) [facility] Glucose (External) 109 60 - 115 mg/dL [facility] Blood 01/05/2024 10:4 8 PM CDT [facility] - 01/05/2024 10:48 PM CDT [facility] ED NOTES Provider Outside LAB - [facility] EXTERNAL R ESULT Performing Organization Address City/[facility] Co de Phone Number [facility] [address] [place] [address], [facility] [phone] * (ABNORMAL) Lipid panel reflex to direct LDL Fasting (06/04/2022 11:12 AM CDT) [facility] Cholesterol 242(H) <200 mg/dL 06/05/2022 12:26 PM [...] LAB - BLOOD ORDER [facility] [address] Lab (no room number, 1st floor of clinic) [place] [address], [place] [phone] * Pap thin layer screen with HPV [...] component of this testing was completed at [facility] 02/10/2022 9:42 AM CDT [facility] Brushing CERVIX UTERI STRUCTURE / Unknown Non-blood Collection / Unknown 02/05/2022 3:37 PM CDT 02/05/2022 4:08 PM CDT Fior NOLAN - OLVIN IBANEZ [facility] Specialty Lab [address] [facility], [address] [place] [address], [facility] [phone] * HPV High Risk Types DNA Cervical (02/05/2022 3:37 PM CDT) Other HR HPV Negative Negative 02/12/2022 1:55 PM CDT [facility] HPV16 DNA Negative Negative 02/12/2022 1:55 PM CDT [facility] HPV18 DNA Negative Negative 02/12/2022 1:55 PM CDT [facility] FINAL DIAGNOSIS This patient's sample is negative for HPV DNA. This test was developed and its performance characteristics determined by the [facility], Molecular Diagnostics Laboratory. It has not been [...] Mejia MD LAB - BLOOD ORDERABL ES [facility] Molecular Diagnostics [address] [facility], [address] [place] [phone], [facility] [phone] * Non Invasive Test Cell Free DNA (07/25/2019 12:09 PM CDT) Lab Scanned Result NON INVAS DNA-Scanned MISYS Blood specimen (specimen) 07/25/2019 12:09 PM CDT Atul Han MD LAB - BLOOD ORDERAB LES MISYS from Last 3 Months or Most Recently Relevant to Health Maintenance Care Teams Double Bass Player Relationship Specialty Start Date End Date Kecia Segovia PA [address] [place] [address] PCP - General 03/17/24 Fior Mejia MD [address] [place] [address] [place] [address] Assigned OBGYN Provider 02/07/22 [place] [address] [place] [address] Assigned PCP 04/17/22 Flori De Luna MD [address] [facility] [address] [address] Physician adult basic education manager 01/09/24
--- OUTSIDE RECORDS SUMMARY | 2024-07-31 05:55 | XMS_ITS | Encounter Summary ---
Author Organization [facility] Address [address] [place] [address] Care Team Providers Care Rug Receiving Clerk Name Role Phone Unavailable Primary Care Provider Unavailabl e Reason for Visit * Appointment Request (Routine) - Pending Review Specialty Diagnoses / Procedures Referred By Contac t Referred To Contact Nephrology and Hypertension Referral ID Status Reason Start Date Expiration Date V isits Requested Visits Authorized [id number] Pending Review 06/22/2024 06/22/2025 1 1 Encounter Details Date Type Department Care Team (Latest Contact Info) Description 07/17/2024 1:00 PM CDT External Outreach Division of Nephrology and Hypertension in [place], [place] [address] [place] [phone] Janie Gomez M.D., Ph.D. [address] [place] [phone] Proteinuria (Primary Dx); Hypertension Essential Primary Social History Tobacco Use Types Packs/Day Years Used Date Smoking Tobacco: Never Assessed Dental Answer Date Recorded Dental: Regular Dentist Unknown 03/15/20 24 Comments Unknown Sex and Gender Information Value Date Recorded Sex Assigned at Not on file Legal Sex Female 7:49 PM DIRECTOR OF EXHIBIT DEVELOPMENT Gender Identity Not on file Sexual Orientation [...]
--- OUTSIDE RECORDS SUMMARY | 2024-07-31 05:55 | XMS_ITS | Encounter Summary ---
Author Organization [facility] Address [address] [place] [address] Care Team Providers Care Inorganic Chemistry Teacher Name Role Phone Unavailable Primary Care Provider Unavailabl e Reason for Visit * Appointment Request (Routine) - Pending Review Specialty Diagnoses / Procedures Referred By Kacie rachel Referred To Contact Nephrology and Hypertension Iwona Garza M.D. [address] [place] [address] Phone: tel: fax: Referral ID Status Reason Start Date Expiration Date V isits Requested Visits Authorized [id number] Pending Review 03/15/2024 03/15/2025 1 1 Encounter Details Date Type Department Care Team (Latest Contact Info) Description 04/24/2024 3:30 PM CDT External Outreach Division of Nephrology and Hypertension in [place], [place] [address] [place] [phone] Janie Gomez M.D., Ph.D. [address] [place] [phone] Proteinuria (Primary Dx) Social History Tobacco Use Types Packs/Day Years Used Date Smoking Tobacco: Never Assessed Dental Answer Date Recorded Dental: Regular Dentist Unknown 03/15/20 24 Comments Unknown Sex and Gender Information Value Date Recorded Sex Assigned at Not on file Legal Sex Female 7:49 PM CHIEF LIBRARIAN BRANCH Gender Identity Not on file Sexual Orientation Not on file documented as of this encounter Progress Notes * Janie Gomez M.D., Ph.D. - 04/24/2024 3:30 PM [...] Wyatt M.D., Ph.D. CT CT Job ID: [id number] documented in this encounter Plan of Treatment Not on file documented as of this encounter Visit Diagnoses Diagnosis Proteinuria- Primary documented in this encounter Additional Health Concerns Assessment Noted Time PHQ-9 Depression Total Score: 21 009 10:04 AM CDT documented as of this encounter
--- OUTSIDE RECORDS SUMMARY | 2024-07-31 05:55 | XMS_ITS | Clinical Summary ---
Author Organization [facility] Address [address] [place] [address] Care Team Providers Care Field Support Specialist Name Role Phone Unavailable Primary Care Provider Unavailabl e Source Comments Patient records contain information from all sites at [facility]. For routine questions regarding patient records, call [phone] during business hours, M-F 8:00 AM - 5:00 PM Central Time. Record requests for emergency care only can be directed to [phone] at any time.[facility] Medications labetaloL 200 mg tablet Take 2 tablets (400 mg total) by mouth 2 (two) times a day. 120 tablet 11 06/18/2024 Active Active Problems Problem Noted Date Diagnosed Date Hypertension Essential Primary 07/17/2024 Proteinuria 04/26/2024 Encounters Date Type Department Care Team Description 07/17/2024 1:00 PM CDT External Outreach Division of Nephrology and Hypertension in [place], [place] [address] [place] [phone] Janie Gomez M.D., Ph.D. Proteinuria (Primary Dx); Hypertension Essential Primary 06/18/2024 4:00 PM CDT External Outreach Division of Nephrology and Hypertension in [place], [place] [address] [place] [phone] Janei Gomez M.D., Ph.D. Proteinuria (Primary Dx); Hypertension Essential Primary 05/24/2024 Clinical Communication Division of Nephrology and Hypertension in [place], [place] [address] [place] [phone] Janie Gomez M.D., Ph.D. from Last 3 Months Immunizations Name Administration Dates Next Due DTaP (Infanrix, [employer]) 11/09/2005 Influenza, Unspecified 10/01/2002 Social History Tobacco Use Types Packs/Day Years Used Date Smoking Tobacco: Never Assessed Dental Answer Date Recorded Dental: Regular Dentist Unknown 03/15/20 24 Comments Unknown Sex and Gender Information Value Date Recorded Sex Assigned at Not on file Legal Sex Female 7:49 PM CHIEF ULTRASOUND TECHNOLOGIST Gender Identity Not on file Sexual Orientation Not on file Plan of Treatment Health Maintenance Due Date Last Done Comments HIV Screening 1984 Hepatitis C Screening 1984 Mammogram 1984 Office Visit for Blood Pressure Check / Re-check 1984 Hepatitis B Vaccines (1 of 3 - 19+ 3-dose series) 2003 Depression Screening (Annual PHQ-2) 10/10/2023 COVID-19 Vaccine (2023- season) 2024 01/04/2024, 08/30/2022, 09/17/2021, Additional history exists Influenza Vaccine (#1) 2024 [...] on patient's age to complete this topic Insurance [facility] [place]AVEZ [id number]
--- OUTSIDE RECORDS SUMMARY | 2024-07-31 05:55 | XMS_ITS | Encounter Summary ---
Author Organization [facility] Address [address] [place] [address] Care Team Providers Care Pet Crematory Worker Name Role Phone Unavailable Primary Care Provider Unavailabl e Encounter Details Date Type Department Care Team (Late st Contact Info) Description 05/24/2024 Clinical Communication Division of Nephrology and Hypertension in [place], [place] [address] [place] [phone] Janie Gomez M.D., Ph.D. [address] [place] [phone] Social History Tobacco Use Types Packs/Day Years Used Date Smoking Tobacco: Never Assessed Dental Answer Date Recorded Dental: Regular Dentist Unknown 03/15/20 24 Comments Unknown Sex and Gender Information Value Date Recorded Sex Assigned at Not on file Legal Sex Female 7:49 PM VOICE ENGINEER Gender Identity Not on file Sexual Orientation [...] Sent: 05/16/2024 9:02 AM CDT To: Alyx Gaspar Subject: FW: 05/15/24 Urine Results ##This message [...] R.N. Sent: 05/16/2024 8:48 AM CDT To: Shaun Gonzales Link [employer]ps Subject: 05/15/24 Urine Results 05/15/24 Urine Results uploaded documented in this encounter Plan of Treatment Not on file documented as of this encounter Visit Diagnoses Not on filedocumented in this encounter Additional Health Concerns Assessment Noted Time PHQ-9 Depression Total Score: 21 04/04/ 009 10:04 AM CDT documented as of this encounter
--- OUTSIDE RECORDS SUMMARY | 2024-07-31 05:55 | XMS_ITS | Encounter Summary ---
Author Organization [facility] Address [address] [place] [address] Care Team Providers Care Floating Operator Name Role Phone Unavailable Primary Care Provider Unavailabl e Reason for Visit * Appointment Request (Routine) - Pending Review Specialty Diagnoses / Procedures Referred By Contac t Referred To Contact Nephrology and Hypertension Referral ID Status Reason Start Date Expiration Date V isits Requested Visits Authorized [id number] Pending Review 06/14/2024 06/14/2025 1 1 Encounter Details Date Type Department Care Team (Latest Contact Info) Description 06/18/2024 4:00 PM CDT External Outreach Division of Nephrology and Hypertension in [place], [place] [address] [place] [phone] Janie Gomez M.D., Ph.D. [address] [place] [phone] Proteinuria (Primary Dx); Hypertension Essential Primary Social History Tobacco Use Types Packs/Day Years Used Date Smoking Tobacco: Never Assessed Dental Answer Date Recorded Dental: Regular Dentist Unknown 03/15/20 24 Comments Unknown Sex and Gender Information Value Date Recorded Sex Assigned at Not on file Legal Sex Female 7:49 PM HEMODIALYSIS RN Gender Identity Not on file Sexual Orientation [...]
--- OUTSIDE RECORDS SUMMARY | 2024-07-31 05:55 | XMS_ITS | Encounter Summary ---
Author Organization [facility] Address [address] [place] [address] Care Team Providers Care Beading Installer Name Role Phone Fior Mejia MD Unavailable Bee Vicente MD Primary Care Provider [phone] Bee Vicente MD Unavailable [phone] Kimber Conte APRN Unavailable Floir De Luna MD Unavailable [phone] Kecia Segovia Primary Care Provider [phone] Encounter Details Date Type Department Care Team (Late st Contact Info) Description 07/19/2023 [facility] Medical Advice [facility] [address] [phone] Bee Hdz, RN Social History Tobacco Use [...] week 06/04/2022 How often do you attend [facility] or yarsani services? Never 06/04/2022 Do you belong to any clubs o r organizations such as latter day groups, unions, fraternal or athletic groups, or [...] Answer Date Recorded PHQ-2 Score 3 06/04/2022 [facility] - Occupational Stress [...] place to sleep or slept in a long-term (including now)? No 06/04/2022 Adolescent Education Answer [...] documented as of this encounter Care Teams Beading Installer Relationship Specialty [place] [address] [place] [address] PCP - General Family Medicine 04/16/22 03/16/24 Kecia Segovia PA [address] [place] [address] PCP - General 03/17/24 Fior Mejia MD [address] [address] Assigned OBGYN Provider 02/07/22 [place] [address] [place] [address] Assigned PCP 04/17/22 Kimber Conte APRN CNM [facility] [address] [place] [address] Acid Polymerization Operator Midwives 01/09/24 01/09/24 Flori De Luna MD [address] [place] [address] Physician furnace caretaker 01/09/24 documented as of this encounter
--- OUTSIDE RECORDS SUMMARY | 2024-07-31 05:55 | XMS_ITS | Encounter Summary ---
Author Organization [facility] Address [address] [place] [address] Care Team Providers Care Economic Consultant Name Role Phone Fior Mejia MD Unavailable Bee Vicente MD Primary Care Provider [phone] Bee Vicente MD Unavailable [phone] Kimber Conte APRN Unavailable Flori De Luna MD Unavailable [phone] Kecia Segovia Primary Care Provider [phone] Encounter Details Date Type Department Care Team (Late st Contact Info) Description 09/13/2023 [facility] Medical Advice [address] [phone] Ana To Social History Tobacco [...] week 06/04/2022 How often do you attend [facility] or methodist services? Never 06/04/2022 Do you belong to any clubs o r organizations such as advent groups, unions, fraternal or athletic groups, or [...] Answer Date Recorded PHQ-2 Score 3 06/04/2022 [facility] - Occupational Stress Questionnaire Answer Date [...] place to sleep or slept in a detention (including now)? No 06/04/2022 Adolescent Education Answer [...] documented as of this encounter Care Teams Economic Consultant Relationship Specialty [place] [address] [place] [address] PCP - General Family Medicine 04/16/22 03/16/24 Kecia Segovia PA [address] [place] [address] PCP - General 03/17/24 Fior Mejia MD [address] [address] Assigned OBGYN Provider 02/07/22 [place] [address] [place] [address] Assigned PCP 04/17/22 Kimber Conte APRN CNM [facility] [address] [place] [address] Smelter Liner Midwives 01/09/24 01/09/24 Flori De Luna MD [address] [place] [address] Physician coating and baking operator 01/09/24 documented as of this encounter
--- OUTSIDE RECORDS SUMMARY | 2024-07-31 05:55 | XMS_ITS | Referral Summary ---
Author Organization [place] Address [address] [place] [address] Care Team Providers Care Jockey Valet Name Role Phone Fior Mejia MD Unavailable Bee Vicente MD Unavailable [phone] Flori De Luna MD Unavailable [phone] Kecia Segovia Primary Care Provider [phone] Allergies No known active allergies Medications Medication [...] How often do you attend chur or jewish services? Never 06/04/2022 Do you belong to any clubs o r organizations such as mosque groups, unions, fraternal or athletic groups, or [...] Answer Date Recorded PHQ-2 Score 3 06/04/2022 [facility] [place] of Occupat ional Health - Occupational Stress [...] PM CDT) HIV 1&2 EXT Non-Reacti ve [facility] Blood 01/31/2024 2:49 PM CDT [facility] - 01/31/2024 2:49 PM CDT [facility] - External Lab Results Provider Outside LAB - [facility] EXTERNAL R ESULT Performing Organization Address City/[facility]/ZIP Co de Phone Number [address] [address], [facility] [phone] * Hepatitis C (HIM External Result) (01/31/2024 2:49 PM CDT) Hep C HIM See Scanned Document [facility] 01/31/2024 2:49 PM CDT [facility] - 01/31/2024 2:49 PM CDT [facility] - External Lab Results Provider Outside LAB - HIM EXTERNAL R ESULT Performing Organization Address City/[facility]/ZIP Co de Phone Number [facility] [address] [place] [address], [facility] [phone] * Glucose (External Result) (01/05/2024 10:48 PM CDT) [facility] Glucose (External) 109 60 - 115 mg/dL [facility] Blood 01/05/2024 10:4 8 PM CDT [facility] - 01/05/2024 10:48 PM CDT [facility] ED NOTES Provider Outside LAB - [facility] EXTERNAL R ESULT Performing Organization Address City/[facility]/ZIP Co de Phone Number [facility] [address] [place] [address], [facility] [phone] * (ABNORMAL) Lipid panel reflex to direct LDL Fasting (06/04/2022 11:12 AM CDT) [facility] Cholesterol 242(H) <200 mg/dL 06/05/2022 12:26 PM [...] LAB - BLOOD ORDER [facility] Lab [address] Lab (no room number, 1st floor of clinic) [place] [address], [facility] [phone] * Pap thin layer screen with HPV [...] component of this testing was completed at [facility] 02/10/2022 9:42 AM CDT [facility] Brushing CERVIX UTERI STRUCTURE / Unknown Non-blood Collection / Unknown 02/05/2022 3:37 PM CDT 02/05/2022 4:08 PM CDT Fior NOLAN - OLVNI IBANEZ [facility] Specialty Lab [address] [facility], [address] [place] [address], [facility] [phone] * HPV High Risk Types DNA Cervical (02/05/2022 3:37 PM CDT) Other HR HPV Negative Negative 02/12/2022 1:55 PM CDT [facility] HPV16 DNA Negative Negative 02/12/2022 1:55 PM CDT [facility] HPV18 DNA Negative Negative 02/12/2022 1:55 PM CDT [facility] FINAL DIAGNOSIS This patient's sample is negative for HPV DNA. This test was developed and its performance characteristics determined by the [facility], Molecular Diagnostics Laboratory. It has not been [...] ORDERABL ES [facility] Molecular Diagnostics [address] [facility], [address] [place] [address], [facility] [phone] * Non Invasive Test Cell Free DNA (07/25/2019 12:09 PM CDT) Lab Scanned Result NON INVAS DNA-Scanned [facility] Blood specimen (specimen) 07/25/2019 12:09 PM CDT Atul Han MD LAB - BLOOD ORDERAB LES [facility] from Last 3 Months or Most Recently Relevant to Health Maintenance Care Teams Jockey Valet Relationship Specialty Start Date End Date Kecia Segovia PA [address] [place] [address] PCP - General 03/17/24 Fior Mejia MD [address] [address] Assigned OBGYN Provider 02/07/22 [place] [address] [place] [address] Assigned PCP 04/17/22 Flori De Luna MD [address] [address] Physician gauge inspector 01/09/24
--- OUTSIDE RECORDS SUMMARY | 2024-07-31 05:55 | XMS_ITS ---
Author Organization [facility] Address [address] [place] [address] Care Team Providers Care Nitroglycerin Neutralizer Name Role Phone Unavailable Unavailable Unavailable Surgery Details Not on file Complications Check Surgery Details section. Procedure Estimated Blood Loss Check Surgery Details section. Procedure Findings Check Surgery Details section. Procedure Specimens Taken Check Surgery Details section.
--- OUTSIDE RECORDS SUMMARY | 2024-07-31 05:55 | XMS_ITS | Encounter Summary ---
Author Organization [place] Address [address] [place] [address] Care Team Providers Care Principal Secretary Name Role Phone [facility], [facility] Primary Care Provider Noel Dallas MD Unavailable Fior Mejia MD Unavailable Bee Vicente MD Primary Care Provider [phone] Bee Vicente MD Unavailable [phone] Kimber Conte APRN Unavailable Flori De Luna MD Unavailable [phone] Kecia Segovia Primary Care Provider [phone] Encounter Details Date Type Department Care Team (Late st Contact Info) Description 04/06/2022 [facility] [address] [place] [address] Ana To Social History Tobacco [...] documented as of this encounter Care Teams Principal Secretary Relationship Specialty Start Date End Date Clinic, [facility] [address] [place] [address] PCP - General 07/17/19 04/15/22 [place] [address] [place] [address] PCP - General Family Medicine 04/16/22 03/16/24 eKcia Segovia PA [address] [place] [address] PCP - General 03/17/24 [place] [address] [place] [address] Assigned PCP 04/12/21 04/16/22 Fior Mejia MD [address] [address] Assigned OBGYN Provider 02/07/22 [place] [address] [place] [address] Assigned PCP 04/17/[address]M [facility] [address] [place] [address] Churn Operator Midwives 01/09/24 01/09/24 Flori De Luna MD [address] [place] [address] Physician bench carpenter 01/09/24 documented as of this encounter
--- OUTSIDE RECORDS SUMMARY | 2024-07-31 05:55 | XMS_ITS | Encounter Summary ---
Author Organization [place] Address [address] [place] [address] Care Team Providers Care Manager Air Name Role Phone Fior Mejia MD Unavailable Bee Vicente MD Primary Care Provider [phone] Bee Vicente MD Unavailable [phone] Flori De Luna MD Unavailable [phone] Kecia Segovia Primary Care Provider [phone] Reason for Visit * Reason Onset Date Comments MyChart Communication 01/31/2024 Encounter Details Date Type Department Care Team (Latest Contact Info) Description 01/31/2024 [facility] [address] [id number] Kylah Trotter, RN MyChart Communication Social History [...] How often do you attend chur or uatsdin services? Never 06/04/2022 Do you belong to any clubs o r organizations such as jew groups, unions, fraternal or athletic groups, or [...] Answer Date Recorded PHQ-2 Score 3 06/04/2022 [facility] of Occupat ional [facility] - Occupational Stress Questionnaire Answer Date [...] place to sleep or slept in a care home (including now)? No 06/04/2022 Adolescent Education Answer [...] documented as of this encounter Care Teams Manager Air Relationship Specialty [place] [address] [place] [address] PCP - General Family Medicine 04/16/22 03/16/24 Kecia Segovia PA [address] [place] [address] PCP - General 03/17/24 Fior Mejia MD [address] [address] Assigned OBGYN Provider 02/07/22 [place] [address] [place] [address] Assigned PCP 04/17/22 Flori De Luna MD [address] [place] [address] Physician day camp unit leader 01/09/24 documented as of this encounter
--- OUTSIDE RECORDS SUMMARY | 2024-07-31 05:55 | XMS_ITS | Encounter Summary ---
Author Organization [place] Address [address] [place] [address] Care Team Providers Care Associate Civil Engineer Name Role Phone [facility], [facility] Primary Care Provider Noel Dallas MD Unavailable Fior Mejia MD Unavailable Bee Vicente MD Primary Care Provider [phone] Bee Vicente MD Unavailable [phone] Kimber Conte APRN Unavailable Flori De Luna MD Unavailable [phone] Kecia Segovia Primary Care Provider [phone] Reason for Referral * Rehab Therapy Physical Therapy (Routine: Next available opening) - Closed Specialty Diagnoses / Procedures Referred By Kacie t Referred To Contact Physical Therapy [place] [address] [place] [address] [address] Referral ID Status Reason Start Date Expiration Date Visits Re quested Visits Authorized [id number] Closed 04/02/2022 04/02/2023 1 1 Question Answer Preferred Location: [facility] Scheduling Instructions: If you have not heard from the scheduling office within 2 business days, please call [phone] for [facility], for [place] and [phone] for [place]. Course of Action Evaluation [...] office within 2 business days, please call [phone] for [facility], for [place] and [phone] for [place]. Reason for Visit * Reason Onset Date Comments Referral 04/02/2022 Encounter Details Date Type Department Care Team (Late st Contact Info) Description 04/02/2022 MyC Medical Advice [facility] [address] [place] [address] [place] [address] [place] [address] Referral Social History Tobacco Use Types Packs/Day [...] patients request for OBGYN referal Ana To/ Hand Kiss Setter documented in this encounter Plan of Treatment [...] documented as of this encounter Care Teams Associate Civil Engineer Relationship Specialty Start Date End Date [facility], [facility] [address] [place] [address] PCP - General 07/17/19 04/15/22 [place] [address] [place] [address] PCP - General Family Medicine 04/16/22 03/16/24 Kecia Segovia PA [address] [facility] [address] PCP - General 03/17/24 [place] [address] [place] [address] Assigned PCP 04/12/21 04/16/22 Fior Mejia MD [address] [place] [address] Assigned OBGYN Provider 02/07/22 [place] [address] [place] [address] Assigned PCP 04/17/22 Kimber Conte APRN CNM [facility] [address] [place] [address] Inspector Line Midwives 01/09/24 01/09/24 Flori De Luna MD [address] [place] [address] Physician commercial glazier 01/09/24 documented as of this encounter
--- OUTSIDE RECORDS SUMMARY | 2024-07-31 05:55 | XMS_ITS | Encounter Summary ---
Author Organization [place] Address [address] [place] [address] Care Team Providers Care Physician Surgeon Name Role Phone Fior Mejia MD Unavailable Bee Vicente MD Primary Care Provider [phone] Bee Vicente MD Unavailable [phone] Kimber Conte APRN Unavailable Flori D eLuna MD Unavailable [phone] Kecia Segovia Primary Care Provider [phone] Encounter Details Date Type Department Care Team (Late st Contact Info) Description 05/23/2023 [facility] Medical Advice [address] [address] Monie Wilks MA Social History [...] week 06/04/2022 How often do you attend [facility] or baptism services? Never 06/04/2022 Do you belong to any clubs o r organizations such as yazidi groups, unions, fraternal or athletic groups, or [...] Answer Date Recorded PHQ-2 Score 3 06/04/2022 [facility] of Occupat ional [facility] - Occupational Stress Questionnaire Answer Date [...] place to sleep or slept in a nursing home (including now)? No 06/04/2022 Sex and Gender [...] documented as of this encounter Care Teams Physician Surgeon Relationship Specialty [place] [address] [place] [address] PCP - General Family Medicine 04/16/22 03/16/24 Kecia Segovia PA [address] [place] [address] PCP - General 03/17/24 Fior Mejia MD [address] [place] [address] Assigned OBGYN Provider 02/07/22 [place] [address] [place] [address] Assigned PCP 04/17/22 Kimber Conte APRN CNM [facility] [address] [place] [address] Leadership Development Manager Midwives 01/09/24 01/09/24 Flori De Luna MD [address] [place] [address] Physician baby attendant 01/09/24 documented as of this encounter
--- OUTSIDE RECORDS SUMMARY | 2024-07-31 05:55 | XMS_ITS | Encounter Summary ---
Author Organization [place] Address [address] [place] [address] Care Team Providers Care Trimmer Loader Name Role Phone Fior Mejia MD Unavailable Bee Vicente MD Primary Care Provider [phone] Bee Vicente MD Unavailable [phone] Flori De Luna MD Unavailable [phone] Kecia Segovia Primary Care Provider [phone] Encounter Details Date Type Department Care Team (Late st Contact Info) Description 02/03/2024 MyC Medical Advice [address] [address] Angelia Marte, MACHINIST JOB SETTER Social History Tobacco Use Types Packs/Day Years [...] often do you attend chur ch or synagogue services? Never 06/04/2022 Do you belong to any clubs o r organizations such as sikhism groups, unions, fraternal or athletic groups, or [...] Answer Date Recorded PHQ-2 Score 3 06/04/2022 [facility] of Occupat ional Health - [...] place to sleep or slept in a fpc (including now)? No 06/04/2022 Adolescent Education Answer [...] documented as of this encounter Care Teams Trimmer Loader Relationship Specialty [place] [address] [place] [address] PCP - General Family Medicine 04/16/22 03/16/24 Kecia Segovia PA [address] [place] [address] PCP - General 03/17/24 Fior Mejia MD [address] [place] [address] Assigned OBGYN Provider 02/07/22 [place] [address] [place] [address] Assigned PCP 04/17/22 Flori De Luna MD [address] [place] [address] Physician australian rules footballer 01/09/24 documented as of this encounter
--- OUTSIDE RECORDS SUMMARY | 2024-07-31 05:55 | XMS_ITS | Referral Summary ---
Author Organization [facility] Address [address] [place] [address] Care Team Providers Care Stove Tender Name Role Phone Unavailable Primary Care Provider Unavailabl e Source Comments Patient records contain information from all sites at [facility]. For routine questions regarding patient records, call [phone] during business hours, M-F 8:00 AM - 5:00 PM Central Time. Record requests for emergency care only can be directed to [phone] at any time.[facility] Encounters Date Type Department Care Team Description 07/17/2024 1:00 PM CDT External Outreach Division of Nephrology and Hypertension in [place], [place] [address] [place] [address] Janie Gomez M.D., Ph.D. Proteinuria (Primary Dx); Hypertension Essential Primary 06/18/2024 4:00 PM CDT External Outreach Division of Nephrology and Hypertension in [address] [address] Janie Gomez M.D., Ph.D. Proteinuria (Primary Dx); Hypertension Essential Primary 05/24/2024 Clinical Communication Division of Nephrology and Hypertension in [address] [address] Janie Gomez M.D., Ph.D. from Last 3 Months Medications labetaloL 200 mg tablet Take 2 tablets (400 mg total) by mouth 2 (two) times a day. 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
--- OUTSIDE RECORDS SUMMARY | 2024-07-31 05:55 | XMS_ITS | Clinical Summary ---
Author Organization [facility] Address [place], [place] [address] Care Team Providers Care Office Auditor Name Role Phone [facility], [facility] Primary Care Pr ovider Allergies No known [...] Encounters Date Type Department Care Team Description 07/25/2024 Orders Only [facility] HIM SERVICES Scanner 1 scan: (1-Ord) INCOMING RECORDS-, [facility], 07/25/2024 07/09/2024 Orders Only [facility] Scanner 1 scan: (1-Ord) [facility] OB BIOPHYSICAL PROFILE, 07/09/2024 07/03/2024 Orders Only [facility] Scanner 1 scan: (1-Ord) [facility], OB BIOPHYSICAL PROFILE, 07/03/2024 06/26/2024 Orders Only [facility] Scanner 1 scan: (1-Ord) [facility] OB BPP W/ OB F/U, 06/26/2024 from Last 3 Months Immunizations Name Administration Dates Next Due COVID-19 VACCINE SPIKEVAX (M ODERNA 50MCG/0.5ML) 12YO+ PFS 01/04/2024 DTaP 11/09/2005 Influenza Virus, Unspecified 10/01/2002 Influenza, IIV4 08/30/2022,,07/12/2019,2017,08/11/2017,08/19/2016,07/21/2015 Rabies Vaccine 03/04/2014,02/11/2014 Tdap 11/13/2019,08/11/2017,07/08/2015 Family History [...] file 01/04/2024 Food Insecurity Answer Date Recorded Do you worry your food will run out before you are able to buy more? 1 01/04/2024 Transportation Needs Answer Date Record ed Lack of Transportation (Medical) 1 01/04/2024 Housing Stability Answer Date Recorded What is your housing situation today? 1 01/04/2024 Comments Yes Sex and Gender [...] Procedure Name Priority Date/Time Associated Diagnosis Comments SCAN CORRESP-IMAGING 07/25/2024 12:00 AM CDT SCAN-ULTRASOUND REPORT 07/09/2024 12:00 AM CDT SCAN-ULTRASOUND REPORT 07/03/2024 12:00 AM CDT SCAN-ULTRASOUND REPORT 06/26/2024 12:00 AM CDT SUSTAINABLE COMMUNITIES DESIGNER THIN PREP PAP SCREEN IMAGED Routine 03/23/2017 1:30 PM CDT from Last 3 Months or Most Recently Relevant to Health Maintenance Results * SCAN CORRESP-IMAGING (07/25/2024 12:00 AM CDT) Anatomical Region Laterality Modality Other Scanner OTHER * SCAN-ULTRASOUND REPORT (07/09/2024 12:00 AM CDT) Only the most recent of3 resultswithin the time period is included. Anatomical Region Laterality Modality Other Scanner OTHER * SUSTAINABLE COMMUNITIES DESIGNER THIN PREP PAP SCREEN IMAGED (03/23/2017 1:30 PM CDT) Case Report Gynecologic Cytology Report ? Case: [id number] ? Authorizing Provider: ??Fior Mejia MD ?Collected: ? 03/23/2017 1330 ? First Screen: ?Lizzeth Ham ?Received: ?03/23/2017 1803 ? Specimen: ?SUSTAINABLE COMMUNITIES DESIGNER ThinPrep Vial Screening, Cervical/Vaginal ? 03/30/2017 8:39 AM CDT [facility] INTERPRETATION/ RESULT NEGATIVE FOR INTRAEPITHELIAL LESION OR MALIGNANCY (NIL) (none) 03/30/2017 8:39 AM CDT [facility] IMEN ADEQUACY Satisfactory for evaluation Endocervical component present 03/30/2017 8:39 AM CDT [facility] HPV REQUEST HPV and PAP 03/30/2017 8:39 AM CDT [facility] Last Pap Date 03/30/2017 8:39 AM CDT [facility] Comment:2012 Last Pap Result NIL 7 8:39 AM CDT [facility] Menstrual Status 03/30/2017 8:39 AM CDT [facility] Automated Review Successful 03/30/2017 8:39 AM CDT [facility] Comment:Specimen processed s uccessfully by automated ethernet network architect device, ThinPrep Imaging System, [employer] ANCILLARY TESTING SUSTAINABLE COMMUNITIES DESIGNER HPV Ordered, Please see separate report 03/30/2017 8:39 AM CDT [facility] Note The pap test is a screening technique, not a diagnostic procedure. ??It is used primarily to screen for squamous cancers and precursor lesions. ??Published studies have shown that it is subject to both false negative and false positive results. ??The pap test should not be used as the sole means to diagnose or exclude pre-malignant and malignant lesions. Interpreted at [facility] (Central Lab, [facility], [facility], [facility], [facility], [facility], [facility]) 03/30/2017 8:39 AM T [facility] Other (Cervical/Vagina l) 03/23/2017 1:30 PM CDT 03/23/2017 6:03 PM CDT Fior Mejia MD PATHOLOGY/CYTOLOGY [facility] [address] [place] [address], from Last 3 Months or Most Recently Relevant to Health Maintenance Care Teams Office Auditor Relationship Specialty Start Date End Date Clinic, [facility] [address] [place] [address] PCP - General 05/21/24
--- OUTSIDE RECORDS SUMMARY | 2024-07-31 05:55 | XMS_ITS | Encounter Summary ---
Author Organization [facility] Address [address] [place] [address]. [place] [address] Care Team Providers Care Ferry Operator Name Role Phone Fior Mejia MD Unavailable Bee Vicente MD Primary Care Provider [phone] Bee Vicente MD Unavailable [phone] Kimber Conte APRN Unavailable Flori De Luna MD Unavailable [phone] Kecia Segovia Primary Care Provider [phone] Reason for Referral * Consultation (Routine: Next available opening) - Closed Specialty Diagnoses / Procedures Referred By Kacie rachel Referred To Contact Otolaryngology Diagnoses Lipoma [place] [address] [place] [address] [facility] [address] Referral ID Status Reason Start Date Expiration Date Visits Re quested Visits Authorized [id number] Closed 06/17/2022 06/17/2023 1 1 Question Answer Reason for Referral: Other My Clinical Question Is: lipoma Scheduling Instructions: [facility] will call you to coordinate your care as prescribed by the provider. If you don? t hear from a roofing sales representative within 2 business days, please call [phone]. Comments Please be aware that coverage of these services is subject to the terms and limitations of your health insurance plan. Call member services at your health plan with any benefit or coverage questions. [facility] will call you to coordinate your care as prescribed by the provider. If you don? t hear from a roofing sales representative within 2 business days, please call [phone]. Encounter Details Date Type Department Care Team (Late st Contact Info) Description 06/16/2022 MyC Medical Advice [facility] [id number] [place] [id number] [place] [address] [place] [address] Lipoma of skin and subcutaneous [...] often do you attend chur ch or sabianism services? Never 06/04/2022 Do you belong to any clubs o r organizations such as baptist groups, unions, fraternal or athletic groups, or [...] Answer Date Recorded PHQ-2 Score 3 06/04/2022 [facility] - Occupational [...] place to sleep or slept in a custodial (including now)? No 06/04/2022 Sex and Gender [...] Associated Diagnoses Orde r Schedule Adult ENT Label Remover Referral Referral Routine: Next available opening Lipoma [...] documented as of this encounter Care Teams Ferry Operator Relationship Specialty [place] [address] [place] [address] PCP - General Family Medicine 04/16/22 03/16/24 Kecia Segovia PA [address] [place] [address] PCP - General 03/17/24 Fior Mejia MD [address] [address] Assigned OBGYN Provider 02/07/22 [place] [address] [place] [address] Assigned PCP 04/17/22 Kimber Conte APRN CNM [facility] [address] [place] [address] Vice President Industrial Relations Midwives 01/09/24 01/09/24 Flori De Luna MD [address] [place] [address] Physician knitting machine operator automatic 01/09/24 documented as of this encounter
--- OUTSIDE RECORDS SUMMARY | 2024-07-31 05:55 | XMS_ITS | Encounter Summary ---
Author Organization [facility] Address [address] [place] [address] Care Team Providers Care Retail Assistant Name Role Phone Fior Mejia MD Unavailable Bee Vicente MD Primary Care Provider [phone] Bee Vicente MD Unavailable [phone] Kimber Conte APRN Unavailable Flori De Luna MD Unavailable [phone] Kecia Segovia Primary Care Provider [phone] Reason for Visit * Reason Onset Date Comments MyChart Communication 08/11/2023 Encounter Details Date Type Department Care Team (Latest Contact Info) Description 08/11/2023 Zena Medical Advice M [facility] [address] [phone] Kylah Trotter, RN MyChart Communication Social History [...] often do you attend chur ch or anglican services? Never 06/04/2022 Do you belong to [...] Date Recorded PHQ-2 Score 3 06/04/2022 [facility] - Occupational Stress Questionnaire Answer Date [...] place to sleep or slept in a correction (including now)? No 06/04/2022 Adolescent Education Answer [...] 2 weeks. Agree with your overall recommendations RVISOR FLESHING * Telephone Encounter - Kylah Trotter RN - 08/15/2023 8:05 AM CST SAB at home over the weekend 08/12/2308/17 scheduled for 1st OB US and visit - ok to cancel w instructions given? Or want to see her Tuesday? Kylah Trotter RN on 08/15/2023 at 8:07 AM RVISOR FLESHING documented in this encounter Plan of Treatment Not on file documented as of this encounter Visit Diagnoses Not on filedocumented in this encounter Additional Health Concerns Assessment Noted Time PHQ-9 Depression Total Score: 8 06/04/20 22 10:15 AM CDT documented as of this encounter Care Teams Retail Assistant Relationship Specialty [place] [address] [place] [address] PCP - General Family Medicine 04/16/22 03/16/24 Kecia Segovia PA [address] [place] [address] PCP - General 03/17/24 Fior Mejia MD [address] [place] [address] Assigned OBGYN Provider 02/07/22 [place] [address] [place] [address] Assigned PCP 04/17/22 Kimber Conte APRN CNM [facility] [address] [place] [address] Life Science Research Assistant Midwives 01/09/24 01/09/24 Flori De Luna MD [address] [place] [address] Physician citizenship teacher 01/09/24 documented as of this encounter
[2024-07-31] MEDS: LACTATED RINGERS 1000 ML 1,000 ML IV ×2 (06:25→07:23)
[2024-07-31 06:26] LABS: Hemoglobin* 11.9 gm/dL (12.0-16.0)
[2024-07-31 07:05] LABS: Basophils Absolute Auto 0.01 K/uL (0.00-0.30); Basophils Percent Auto 0.1 % (0.0-3.0); Eosinophils Absolute Auto 0.07 K/uL (0.00-0.50); Eosinophils Percent Auto 0.6 % (0.0-7.0); Hematocrit 35.8 % (33.0-51.0); Immature Granulocytes Abs Auto 0.13 K/uL (0.00-0.30); Immature Granulocytes Pct Auto 1.2 %; Lymphocytes Percent Auto 16.8 % (20-44); Mean Corpuscular HGB Conc 34 gm/dL (32-36); Mean Corpuscular Hemoglobin 31 pg (26-34); Mean Corpuscular Volume 93 fL (80-100); Monocytes Percent Auto 8.2 % (0.0-11.0); Neutrophils Percent Auto 73.1 % (42.0-72.0); Platelet Count* 166 K/uL (140-440); RDW Coefficient of Variation % 13.6 % (11.5-15.5); Red Blood Count 3.86 m/uL (4.00-5.20)
[2024-07-31 07:08] LABS: Slide Review Reflex No
[2024-07-31] MEDS: CEFAZOLIN 2 GM INJ IVP (07:44)
--- NOTE | 2024-07-31 07:46 | P.LDBA_ITS ---
Subjective History of Present Illness Date Seen: 07/31/24 Narrative: Patient is being admitted to Labor and Delivery for repeat with bilateral salpingectomy. She is a 39 year old at 37 3/7 weeks gestation. Her full history and physical was dictated by Dr. Garza on 07/24. Please see this for details. Specific Issues/Plans G 5 P 3013 Spouse: Brock. Children: Kush Coughlin, Anahi. Baby: Boy! #Chronic hypertension. On no medication at beginning of . * Currently taking labetalol 300 mg twice daily. Advise patient to monitor blood pressures twice daily and notify clinic with readings 140/90 or higher. * As of 07/24, labetalol dose increased to 500 mg BID * Baseline preeclampsia labs drawn. Normal baseline labs. P/C ratio 0.00. * 24 hour urine protein 323 mg. Referral to nephrology placed. Per nephrology: Repeat 24 hour urine 04/24/2024, recommended repeat in June 2024 as well. They will see her every 2 months during and then . Aspirin and low-salt diet recommended. * Recommend daily baby aspirin starting at 12 weeks reduce risk of preeclampsia * If BP is controlled with medications, growth ultrasound every 4 weeks starting at 32 weeks * Weekly BPP or NST starting at 32 weeks * Weekly preeclampsia labs with urine P/C ratio starting at 32 weeks; delivery between 37-39w6d #Advanced maternal age. Will be 39 years old at time of delivery. * NIPT: negative, XY * Level 2 ultrasound: referral placed 02/27 * Growth ultrasound between 32 and 36 weeks * Weekly NST starting at 36 weeks * Delivery between 39 and 40 weeks #Anemia at 1st OB. Hemoglobin 10.1. Low iron, low ferritin. Recommend every other day iron supplement. * Repeat CBC at 20 weeks: 10.2. Iron infusions completed. * Repeat CBC at 28 weeks: Hb 11 # History of x3. * Planning repeat. Considering salpingectomy. * Scheduled for 07/[address] Garza # Anxiety and depression. Seeing a therapist every other week. Taking bupropion 300 mg daily and sertraline 100 mg daily. * Patient doesn't feel that the bupropion (increased 2 years ago) is working for her, as the only benefit she noted with this medication was increased energy. Decreased to 150mg daily. Caused fatigue but otherwise mood is find. # BMI 36.3 * A1c: 5.4% #Stress incontinence. Plan for referral to PT . IMAGING * 01/31/2024: SARAH by this ultrasound is 08/17/2024, with CRL equal to 11 weeks, 4 days. SARAH by LMP was 08/30/2024, a 13 day discrepancy. Dating by this ultrasound. * 03/22/2024 LVL 2: SLIUP. Vtx. EFW 55% Three-vessel umbilical cord. Anterior placenta without previa. Normal anatomy. Suboptimally viewed cardiac structures, diaphragm and spine. Repeat ultrasound on 04/16/2024. * 04/16/2024 F/U w/ MFM EFW 26%, MVP 6 cm, no anomalies, normal growth * 06/26/24: Transverse with head to maternal right, SDP 7.4 cm, BPP 8/8, EFW 70%. AC 71%. BPD 95%, HC 86%, FL 42%. * 07/24/2024: BPP 8/8. Cephalic, SD P 7.6 cm, EFW 78%, AC >97%, BPD 44%, HC 91%, FL <3%. Covid: Up-to-date according to patient's report TDap: 06/04 RSV: 07/03 Flu: 07/24 Hb 07/24: 11.9 GBS: neg Blood type: A+ H&P 07/[address] Garza OB - Problem Based A/P Additional Plan (1) History of section complicating : Status: Acute Plan: Repeat with bilateral salpingectomy today. (2) : Status: Acute (3) Chronic hypertension: Status: Acute (4) Mixed anxiety depressive disorder: Problem details: Treated with sertraline. Status: Chronic Delivery/Labor/Induction Plan Plan: Section OB Exam Physical Exam Vital signs: Temp Pulse BP Pulse Ox 98.8 F 85 110/63 97 07/31/24 06:53 07/31/24 06:33 07/31/24 06:33 07/31/24 07:21 Narrative: Physical exam: General: No acute distress Psych: Alert and oriented x3, full affect HEENT: Normocephalic, atraumatic Heart: Regular rate and rhythm, no murmur rub or gallop Lungs: Clear to auscultation bilaterally Abdomen: Soft, nontender, gravid
--- NOTE | 2024-07-31 08:00 | W.ANESCHARGE ---
Anesthesia Charges Start Date/Time Anesthesia Start Date: 07/31/24 Anesthesia Start Time: 07:35 Stop Date/Time Anesthesia Stop Date: 07/31/24 Anesthesia Stop Time: 09:46
[2024-07-31] MEDS: KETOROLAC 30 MG/ML inj IVP ×3 (09:16→21:25)
--- NOTE | 2024-07-31 09:31 | PM.OBPRCCS ---
Procedure Date of procedure: 07/31/24 Pre-op diagnosis: Three previous deliveries Chronic hypertension requiring medication during 37 weeks, 3 days gestation Undesired fertility Post-op diagnosis: same Procedure Done: Global Will [facility] bill your pro fee for this procedure?: Yes Blood Loss Measurement Type: QBL (535) Bakri Used: No IV fluids (mL): 800 (plus 250 cc albumin) Urine Output (mL): 200 Surgeon: Iowna Garza MD Pals Specialist: Kamryn Hunter Anesthesia Type: Spinal Findings: 1. Male infant, cephalic with face presentation, nuchal cord X 1, Apgars 5, 6 and 9, weight 2800 g. 2. Thick scarring of the fascial layer. Otherwise, normal appearance of uterus, bilateral tubes and ovaries. Procedure Name: Repeat low-transverse section with bilateral salpingectomy Procedure Description: Patient was taken to the operating room with IV running. She received cefazolin in preoperative prophylaxis. Spinal anesthesia was administered. Magallon catheter was inserted. She was prepped and draped in the usual sterile fashion. Anesthesia was tested and found to be adequate. A low-transverse skin incision was made with a scalpel and carried through to the underlying layer of fascia with the scalpel. The subcutaneous fat was dissected off the underlying fascia with Bovie. The fascia was nicked in the midline with a scalpel, and this incision was extended laterally with scissors. The fascia was dissected off the underlying rectus muscles with scissors superiorly and inferiorly. The rectus muscles were in the midline. The peritoneum was entered during the dissection of the fascia off the rectus. There were omental adhesions to the anterior abdominal wall in this area. The rectus muscles were slowly and painstakingly dissected open, during which time some omental adhesions were taken down. Bovie was used to widen the peritoneal incision laterally. Adrian O retractor was inserted and tightened down, providing excellent visualization of the lower uterine segment. The bladder reflection was somewhat advanced along the lower uterine segment. A bladder flap was created with a combination of sharp and blunt dissection. Low-transverse uterine incision was made with a scalpel. Incision was widened bluntly. The was rotated to accomplish flexion of the head, as it was in an extended position initially. The infant's head was grasped through the hysterotomy and delivered with the help of fundal pressure. The remainder of the body delivered without incident. Cord was clamped and cut after 30 seconds. Infant was handed off to attending nurses. The placenta was delivered with gentle traction on the cord. The uterus was exteriorized and cleaned of all clots and debris with the dry lap pad. The hysterotomy was reapproximated with 0 Vicryl in a running, locked fashion. Two paijco-ys-ngwzi sutures were required to obtain hemostasis. The adnexa were examined and noted to be normal in appearance. The right tube was grasped with [place] clamps and elevated. The LigaSure exact device was used to divide the blood supply laterally, and dissection was carried laterally to medially through the mesosalpinx until the cornua was reached. The tube was cauterized and transected at the right cornua. Hemostasis was noted. This procedure was repeated on the patient's left side and hemostasis was again noted. The uterus was returned to the abdomen. The hysterotomy was reexamined an 2 additional rupwpp-kj-nigsy sutures and Bovie electrocautery were used to obtain hemostasis. The Adrian O retractor was removed. The hysterotomy was reexamined and found to be hemostatic. Renny hemostatic agent was applied on the bladder reflection. The peritoneum was reapproximated with 2 0 Vicryl in a running fashion. The rectus muscles were examined and were quite raw in many spots; Bovie was used to obtain hemostasis and a small amount of Renny hemostatic agent was also used superiorly. The fascia was reapproximated with 0 Vicryl in a running fashion. Subcutaneous fat was irrigated and Bovie used on oozing vessels. The subcutaneous fat was reapproximated with 2 0 plain gut suture in an interrupted fashion. The skin was closed with a subcuticular stitch of 4-0 Monocryl. Surgical glue was applied above this. Patient tolerated procedure well was taken to recovery area in stable condition. Complications: None Pathology: specimen obtained, sent to pathology (Placenta, bilateral fallopian tubes) Surgery Debrief Performed: Yes Surgery Debrief Comment: Postoperative debrief was verbalized with OR staff, including a verification of pathology specimens to be sent as described above. Condition: stable Disposition: floor
--- NOTE | 2024-07-31 09:48 | P.NB_ITS ---
Nerve Block Nerve Block Time Seen by Provider: 09:30 Date Seen: 07/31/24 Type of block requested by surgeon for post-operative analgesia: TAP Side: bilateral Time out performed: Yes Verification of patient name: Yes Verification of date of : Yes Name of person performing procedure: natacha vilchis Continuous monitoring Was continuous monitoring of O2 sat, B/P, groundwater monitoring technician, recorded every 15 minutes?: Yes Procedure Checklist: sterile prep, needles and gloves Ultrasound guided. Images saved: Yes Medications given in 5ml increments after negative aspiration: Marcaine %: 0.25 mL: 30 Needle gauge: 20 and Exparel mL: 10 Needle gauge: 20 Patient tolerated procedure well: Yes Block Charges Block Charge (with Pro Fee): TAP Bilateral Use of Ultrasound Machine for Block: Yes- US Guidance/pain block
--- NOTE | 2024-07-31 09:52 | W.ANESCHARGE ---
Anesthesia Charges Start Date/Time Anesthesia Start Date: 07/31/24 Anesthesia Start Time: 07:35 Stop Date/Time Anesthesia Stop Date: 07/31/24 Anesthesia Stop Time: 09:46
[2024-07-31] MEDS: diphenhydrAMINE 50 MG/ML inj 12.5 MG IVP ×2 (11:04→21:28)
[2024-07-31] MEDS: SODIUM CHLORIDE 0.9 % (FLUSH) 10 ML SYRINGE IVF (13:01)
[2024-07-31] MEDS: ONDANSETRON 2 MG/ML inj 4 MG IV (13:01)
[2024-07-31] MEDS: LABETALOL HCL 100 MG TABLET 500 MG PO (21:21)
[2024-07-31] MEDS: LANOLIN CREAM 1 APPLIC TOPICAL (21:32)
[2024-08-01] VITALS (15 sets, daily range): BP systolic 103–119; BP diastolic 68–76; PULSE 70–89; RESP 16; TEMP 36.2–36.9; O2SAT 95–97
[2024-08-01] MEDS: ACETAMINOPHEN 500 MG TABLET 1000 MG PO ×3 (00:48→21:08)
[2024-08-01] MEDS: KETOROLAC 30 MG/ML inj IVP ×3 (03:30→16:01)
[2024-08-01 06:40] LABS: Hemoglobin* 10.4 gm/dL (12.0-16.0)
--- NOTE | 2024-08-01 07:18 | PM.OBPNVD1 ---
OB - PN:Subj Subjective Date Seen: 08/01/24 Patient comments OB post-: no complaints [place] status: feeding status: exclusively Narrative: The patient feels well.? The pain is well controlled with current medications.?Still using Toradol. She has no new complaints.? Urinary output is adequate and she is voiding without difficulty.? Has a good appetite, is tolerating a general diet, is passing flatus, and has not had a bowel movement.? Has scant amount of rubra lochia.? She is ambulating well. She is and reports it is going well.? OB - PN: Obj Exam Physical Exam: Vital signs: Temp Pulse Resp BP Pulse Ox O2 Del Method 97.2 F L 70 16 111/70 97 Room Air 08/01/24 06:04 08/01/24 06:04 08/01/24 06:04 08/01/24 06:04 08/01/24 06:04 08/01/24 06:04 Narrative: GENERAL APPEARANCE:? normal affect, alert, no distress MOOD:? appropriate CHEST:? clear to auscultation HEART:? regular rate and rhythm ABDOMEN:? soft, non-tender the uterine fundus is At Umbilicus, Midline and is appropriate for the stage of recovery. EXTREMITIES:? normal and minimal edema Incision: Surgical dressing removed with no surrounding erythema. No discharge noted on dressing. Incision well approximated. OB - PN: Obj Data Labs Labs: Laboratory Results - last 24 hr 08/01/24 06:35 Hgb 10.4 L OB - PN: A/P Delivery Assessment and Plan (1) Chronic hypertension: Status: Acute (2) Mixed anxiety depressive disorder: Problem details: Treated with sertraline. Status: Chronic (3) Advanced maternal age (AMA) in : Status: Acute (4) Anemia: Status: Acute (5) Status post repeat low transverse section: Status: Acute (6) care and examination of lactating mother: Status: Acute Plan Comments: PP day #1 Routine care with monitoring of chronic HTN and depression and anxiety. Continue current meds. VSS. May see as desired Anticipate discharge possibly 08/02/2024 To monitor BP at home, already has a cuff. Return to clinic in 3-5 days post discharge.
[2024-08-01] MEDS: DOCUSATE SODIUM 100 MG CAPSULE PO (09:50)
[2024-08-01] MEDS: buPROPion XL 150 MG TABLET 300 MG PO (09:50)
[2024-08-01] MEDS: SERTRALINE 100 MG TABLET PO (09:50)
[2024-08-01] MEDS: LABETALOL HCL 100 MG TABLET 500 MG PO ×2 (09:51→21:09)
--- NOTE | 2024-08-01 15:11 | PC.SOCIAL ---
Social work consult: sewage disposal worker and social work compliance intern met with pt this morning to check-in with the pt and address her concern about mold in her home that she shared when she admitted to the hospital during the [facility] interview. 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 Pt stated that they have been on a waitlist for the weatherization program through [facility] for more than four years, but have never been called for an opening. Pt stated that she has called and checked in with the county multiple times about where they are on the waitlist, but they do not ever hear when they might be able to get some assistance. sewage disposal worker and social work compliance intern offered to do some research for the pt and calls to the [facility] about this assistance program. Pt is not discharging today and will be staying another night. sewage disposal worker and social work compliance intern will plan to check-in with the pt again tomorrow morning. Social work to follow-up as needed.
[2024-08-02 01:05] VITALS: BP 119/78; TEMP 36.5
[2024-08-02] MEDS: IBUPROFEN 600 MG TABLET PO ×2 (01:13→07:41)
[2024-08-02 01:21] LABS: Rapid Plasma Reagin (RPR) Non Reactive (Non Reactive)
[2024-08-02] MEDS: ACETAMINOPHEN 500 MG TABLET 1000 MG PO (03:19)
[2024-08-02] MEDS: OXYCODONE 5 MG TABLET PO (03:31)
[2024-08-02] MEDS: SIMETHICONE 80 MG TAB.CHEW PO (03:31)
[2024-08-02 03:32] VITALS: BP 132/83; PULSE 85; RESP 17; TEMP 36.6
[2024-08-02 08:31] VITALS: BP 118/74; PULSE 76; RESP 16; TEMP 36.6; O2SAT 94
[2024-08-02] MEDS: LABETALOL HCL 100 MG TABLET 500 MG PO (09:09)
[2024-08-02] MEDS: SERTRALINE 100 MG TABLET PO (09:09)
[2024-08-02] MEDS: buPROPion XL 150 MG TABLET 300 MG PO (09:09)
[2024-08-02] MEDS: DOCUSATE SODIUM 100 MG CAPSULE PO (09:09)
--- NOTE | 2024-08-02 10:59 | PC.SOCIAL ---
Resource assistance: Social work marketing operations intern left a voicemail with [facility], but did not receive a call back. . Social work marketing operations intern provided pt with information packets from [facility] and [facility], in addition to phone numbers for [facility], [facility] and [facility].
[2024-08-02 13:09] VITALS: BP 111/68; PULSE 84; RESP 16; TEMP 36.8; O2SAT 95
--- NOTE | 2024-08-02 16:26 | P.DS_ITS ---
DS: Providers Provider Date Seen: 08/02/24 Date of admission: 07/31/24 05:51 Primary care physician: Kecia Segovia PA-C Admitting Clinician: Iwona Garza MD Consults: 07/31/24 07:16 Consult to Hand Printed Circuit Board Assembler [CONS] Routine Comment: Reason for Consult:: Social Service Consult Attending Physician on discharge: Monie Young APRN. CNM Date of Discharge: 08/02/24 DS: Diagnosis Discharge Diagnosis (1) care and examination of lactating mother: Status: Acute (2) Status post repeat low transverse section: Status: Acute (3) Anemia: Status: Acute (4) Mixed anxiety depressive disorder: Status: Chronic Problem details: Treated with sertraline. Exam Narrative: Exam Narrative: VSS. ?Afebrile GENERAL APPEARANCE: ?normal affect, alert, no distress MOOD: ?appropriate HEENT: normocephalic, neck supple, full ROM CHEST: ?Symmetrical chest wall movement. ?Normal respiratory effort. ?Clear to auscultation HEART: ?regular rate and rhythm ABDOMEN: ?soft, non-tender. Uterine fundus is firm, at Umbilicus, Midline and is appropriate for the stage of recovery. ?Bowel sounds present. EXTREMITIES: ?normal and no edema SKIN: warm, dry. ? ?Incision clean/dry/well approximated. ?No signs of infection noted. Const: Vital Signs, click to edit/add: Vital Signs - 24 hr 08/01/24 17:15 08/01/24 20:53 08/02/24 01:05 Temperature 98.4 F 98.3 F 97.7 F Pulse Rate [Pulse Oximeter] 87 87 Respiratory Rate 16 16 Blood Pressure [Le ft Arm] 108/70 119/76 119/78 Pulse Oximetry 95 Oxygen Delivery Me thod Room Air 08/02/24 03:32 08/02/24 08:31 08/02/24 13:09 Temperature 97.8 F 97.8 F 98.3 F Pulse Rate [Pulse Oximeter] 85 76 84 Respiratory Rate 17 16 16 Blood Pressure [Le ft Arm] 132/83 118/74 111/68 Pulse Oximetry 94 95 Oxygen Delivery Me thod Room Air Room Air Room Air Documenting provider has reviewed patient's vital signs: yes OB - DS: Summary Hospital Course Hospital Course: Blossom is a 39 y.o. who was admitted to L & D for repeat C/S. ?She had an uncomplicated .?The patient feels well. ?The pain is well controlled with current medications. ?She has no new complaints. ?She is breast feeding and reports things are going well.? the patient has done well.? Vitals have been stable.? She has remained afebrile.? Has a good appetite, is tolerating a general diet. ?She is voiding without difficulty.? She is passing gas and has not had a bowel movement.? She is ambulating and denies any dizziness.? Has Small amount of rubra lochia. ?She had a tubal ligation for prevention. Peripartum Data delivery method: Repeat Section Procedures: Procedures Operation Date: 07/31/24 07:15 Actual Procedure Side Surgeon p Repeat LOW TRANSVERSE Section AND BILATERAL SALPINGECTOMY Bilateral Iwona Garza MD Procedures: tubal ligation/salpingectomy complications: none Dixie Infant Gender: Male Infant Discharge Plan: Home Status at Discharge Functional status at discharge: independent ambulation Overall status at discharge: patient is progressing back to baseline Time Spent with Patient Time attestation: Total time spent providing and/or coordinating discharge services: Time spent: Less than 30 minutes Discharge Plan Discharge Disposition: Home, Self-Care Date of Admission: 07/31/24 05:51 Attending Provider on Discharge: Monie Young Primary Care Provider: Kecia Segovia Condition: Stable Anticipated Discharge Date/Time: 08/02/24 17:30 Discharge Medications: New acetaminophen 500 mg Tablet 1,000 mg PO Q6H PRN (Reason: Pain) Qty: 0 0RF docusate sodium 100 mg Capsule 100 mg PO DAILY Qty: 90 2RF ibuprofen 600 mg Tablet 600 mg PO Q6H PRN (Reason: Pain) Qty: 60 0RF labetalol 100 mg Tablet 500 mg PO BID Qty: 60 0RF oxycodone 5 mg Tablet 5 - 10 mg PO Q4H PRN (Reason: Pain) Qty: 20 0RF Continued DHA 200 mg capsule 200 mg PO DAILY Gaviscon 80-14.2 mg tablet,chewable 2 tab PO DAILY labetalol 300 mg tablet 500 mg PO BID bupropion HCl 150 mg tablet extended release 24 hr 300 mg PO DAILY sertraline 100 mg tablet 100 mg PO DAILY Qty: 90 2RF Discharge Orders: Discharge Order (Routine); Ordered 08/02/24 Ordered By: Monie Young Patient Education: OB Over the Counter Medication Information, OB /Breast Feeding Additional Instructions: Discharge instructions were reviewed with the patient including signs and symptoms of infection and home going medications Lifting Restrictions: 20 pounds for 6 weeks No not submerge incision under water X 2 weeks? Nothing vaginally for 6 weeks: no tampons or intercourse Do not drive while taking narcotic pain medication(s) Off Work or School for 8 weeks Symptoms to report to doctor: * Bleeding that saturates more than one pad per hour * Passing clots larger than the size of a golf ball * Pain not relieved by prescribed medication * Fever above 100.4 degrees Fahrenheit * A foul vaginal odor * Difficulty in emotions, mood, and functions * Thoughts of hurting yourself and/or * Painful, reddened area in your breast * Any drainage, redness, or tenderness in your IV/epidural site * Severe headache that doesn't improve after taking medications * Changes in vision, including temporary loss of vision, blurred vision, and/or light sensitivity * Upper abdominal pain (usually under ribs on the right side) * Decrease in urination or painful, frequent urinating * Chest pain * Shortness of breath * Tenderness or pain with redness and/swelling in the calf(s) of your leg [facility] for a BP check?08/06/24 Call with BP greater than or equal to 150/90 2-week visit: incision check, discuss infant feeding concerns, review control options and screen for anxiety/depression. 6-week visit for an annual exam. consultation services are available to all mothers and babies for the first year after delivery.? To make an appointment, please call [phone]. Activity Level: Activity as Tolerated Discharge Diet: Regular Follow Up Appointments: [facility] [Provider Group] Forms: MyHealth Info Instructions
== END 2024-08-02 17:45 | disposition home or self-care (01) | DRG 540 ==
PROVIDERS: Admitting Provider Obstetrics & Gynecology; PCP Student in an Organized Health Care Education/Training Program; Visit Provider Obstetrics & Gynecology
PROC: 10D00Z1 Extraction of Products of Conception, Low, Open Approach (ICD-10-PCS; CPT 59514; principal; 2024-07-31 07:15)
DX: O34.211 Maternal care for low transverse scar from previous cesarean delivery (principal); O16.4 Unspecified maternal hypertension, complicating childbirth; O99.02 Anemia complicating childbirth; D64.9 Anemia, unspecified; O99.344 Other mental disorders complicating childbirth; F41.8 Other specified anxiety disorders; Z3A.37 37 weeks gestation of pregnancy; Z37.0 Single live birth; Z30.2 Encounter for sterilization; O75.89 Other specified complications of labor and delivery; N39.3 Stress incontinence (female) (male); G89.18 Other acute postprocedural pain; O99.892 Other specified diseases and conditions complicating childbirth; N73.6 Female pelvic peritoneal adhesions (postinfective)
CPT/HCPCS: 01961; 36415; 64488; 76942; 85018; 85025; 86592; 86850; 86900; 86901; 88302; 88307; A9270; C9290; J0665; J0690; J1200; J1885; J2274; J2371; J2405; J2590; J7120

== ENCOUNTER 2024-08-04 13:00 | Outpatient (CLI) | payer BC, SELFPAY ==
[2024-08-04] VITALS (10 sets, daily range): BP systolic 142–152; BP diastolic 67–88; PULSE 61–71; RESP 16; TEMP 37
--- OUTSIDE RECORDS SUMMARY | 2024-08-04 13:16 | XMS_ITS | Encounter Summary ---
Author Organization [facility] Address [address] [place] [address] Care Team Providers Care Photoengraving Machine Operator/Tender Name Role Phone Unavailable Primary Care Provider Unavailabl e Reason for Visit * Appointment Request (Routine) - Pending Review Specialty Diagnoses / Procedures Referred By Contac t Referred To Contact Nephrology and Hypertension Referral ID Status Reason Start Date Expiration Date V isits Requested Visits Authorized [id number] Pending Review 06/22/2024 06/22/2025 1 1 Encounter Details Date Type Department Care Team (Latest Contact Info) Description 07/17/2024 1:00 PM CDT External Outreach Division of Nephrology and Hypertension in [place], [place] [address] [place] [phone] Janie Gomez M.D., Ph.D. [address] [place] [phone] Proteinuria (Primary Dx); Hypertension Essential Primary Social History Tobacco Use Types Packs/Day Years Used Date Smoking Tobacco: Never Assessed Dental Answer Date Recorded Dental: Regular Dentist Unknown 03/15/20 24 Comments Unknown Sex and Gender Information Value Date Recorded Sex Assigned at Not on file Legal Sex Female 7:49 PM DIRECTOR ATHLETIC Gender Identity Not on file Sexual Orientation [...]
--- OUTSIDE RECORDS SUMMARY | 2024-08-04 13:16 | XMS_ITS | Encounter Summary ---
Author Organization [facility] Address [address] [place] [address] Care Team Providers Care Union Carpenter Name Role Phone Unavailable Primary Care Provider Unavailabl e Reason for Visit * Appointment Request (Routine) - Pending Review Specialty Diagnoses / Procedures Referred By Contac t Referred To Contact Nephrology and Hypertension Referral ID Status Reason Start Date Expiration Date V isits Requested Visits Authorized [id number] Pending Review 06/14/2024 06/14/2025 1 1 Encounter Details Date Type Department Care Team (Latest Contact Info) Description 06/18/2024 4:00 PM CDT External Outreach Division of Nephrology and Hypertension in [place], [place] [address] [place] [phone] Janie Gomez M.D., Ph.D. [address] [place] [phone] Proteinuria (Primary Dx); Hypertension Essential Primary Social History Tobacco Use Types Packs/Day Years Used Date Smoking Tobacco: Never Assessed Dental Answer Date Recorded Dental: Regular Dentist Unknown 03/15/20 24 Comments Unknown Sex and Gender Information Value Date Recorded Sex Assigned at Not on file Legal Sex Female 7:49 PM STORE SPECIALIST Gender Identity Not on file Sexual Orientation [...]
--- OUTSIDE RECORDS SUMMARY | 2024-08-04 13:16 | XMS_ITS | Clinical Summary ---
Author Organization [facility] Address [address] [place] [address] Care Team Providers Care Senior Advisor Name Role Phone Fior Mejia MD Unavailable Bee Vicente MD Unavailable Flori De Luna MD Unavailable [phone] Kecia Segovia Primary Care Provider [phone] Allergies No known active allergies Medications buPROPion (WELLBUTRIN XL) 150 MG 24 hr tabletIndicatio ns:KODY (generalized anxiety disorder) Take 1 tablet (150 mg) by mouth every morning 90 tablet 3 Active Additional Information Patient taking differently: 300 mgOral EVERY MORNING, Reported on 07/20/2023 sertraline (ZOLOFT) 100 MG tabletIndicatio ns:KODY (generalized anxiety disorder) Take 1 tablet (100 mg) by mouth daily 90 tablet 3 Active Vit-Fe Fumarate-FA (PNV PLUS MULTIVITAMIN) 27-1 MG TABS per tablet Take 1 tablet by mouth daily Active labetalol (NORMODYNE) 100 MG tablet Take 100 mg by mouth 4 Active Active Problems Problem Noted Date Diagnosed [...] often do you attend chur ch or adventism services? Never 06/04/2022 Do you belong to any clubs o r organizations such as druze groups, unions, fraternal or athletic groups, or [...] Answer Date Recorded PHQ-2 Score 3 06/04/2022 [facility] - Occupational Stress [...] Assigned at Female 03/05/2021 2:58 PM CDT Legal Sex Female 3:27 PM CDT Gender Identity Female 03/05/2021 2:58 [...] CDT Routine general medical examination at a [facility] care facility GYNECOLOGIC CYTOLOGY Routine 02/05/2022 3:37 [...] PM CDT) HIV 1&2 EXT Non-Reacti ve [facility] Blood 01/31/2024 2:49 PM CDT [facility] - 01/31/2024 2:49 PM CDT [facility] - External Lab Results us Provider Outside LAB - HIM EXTERNAL RESULT Final Result [facility] [address] [place] [address], [facility] [phone] * Hepatitis C (HIM External Result) (01/31/2024 2:49 PM CDT) Pathologist [facility] Hep C HIM See Scanned Document [facility] 01/31/2024 2:49 PM CDT [facility] - 01/31/2024 2:49 PM CDT [facility] - External Lab Results us Provider Outside LAB - HIM EXTERNAL RESULT Final Result Performing Organization Address City/[facility]/ZIP Co de Phone Number [facility] [address] [place] [address], [facility] [phone] * Glucose (External Result) (01/05/2024 10:48 PM CDT) [facility] Glucose (External) 109 60 - 115 mg/dL [facility] Blood 01/05/2024 10:4 8 PM CDT [facility] - 01/05/2024 10:48 PM CDT [facility] ED NOTES us Provider Outside LAB - HIM EXTERNAL RESULT Final Result Performing Organization Address City/[facility]/ZIP Co de Phone Number [facility] [address] [place] [address], [facility] [phone] * (ABNORMAL) Lipid panel reflex to direct [...] ??Greater than or equal to 220 mg/dL us Bee Vicente MD LAB - BLOOD ORDERABLES Fi nal Result [facility] [address] Lab (no room number, 1st floor of clinic) [place] [address], [place] [phone] * Pap thin layer screen with HPV [...] component of this testing was completed at [facility] 02/10/2022 9:42 AM CDT [facility] Brushing CERVIX UTERI STRUCTURE / Unknown Non-blood Collection / Unknown 02/05/2022 3:37 PM CDT 02/05/2022 4:08 PM CDT us Fior NOLAN - OLVIN IBANEZ Final Result [facility] Special[facility] Lab [address] [facility], [address] [place] [phone], [facility] [phone] * HPV High Risk Types DNA Cervical (02/05/2022 3:37 PM CDT) Other HR HPV Negative Negative 02/12/2022 1:55 PM CDT [facility] HPV16 DNA Negative Negative 02/12/2022 1:55 PM CDT [facility] HPV18 DNA Negative Negative 02/12/2022 1:55 PM CDT [facility] FINAL DIAGNOSIS This patient's sample is negative for HPV DNA. This test was developed and its performance characteristics determined by the [facility], Molecular Diagnostics Laboratory. It has not [...] 3:37 PM CDT 02/11/2022 9:24 AM CDT us Fior Mejia MD LAB - BLOOD ORDERABLES Final Res ult [facility] [address] [facility] [place], [address] [place] [phone], [facility] [phone] * Non Invasive Test Cell Free DNA (07/25/2019 12:09 PM CDT) Lab Scanned Result NON INVAS DNA-Scanned [facility] Blood specimen (specimen) 07/25/2019 12:09 PM CDT us Atul Han MD LAB - BLOOD ORDERABLES Allyssa pierce Result [facility] from Last 3 Months or Most Recently Relevant to Health Maintenance Insurance BLUE PLUS BLUE PLUS Care Teams Senior Advisor Relationship Specialty Start Date End Date Kecia [place] [address] [place] [address] PCP - General 03/17/24 Fior Mejia MD [address] [facility] [address] [place] [address] Assigned OBGYN Provider 02/07/22 [place] [address] [place] [address] Assigned PCP 04/17/22 Flori De Luna MD [address] [facility] [address] [place] [address] Physician cabin man 01/09/24
--- OUTSIDE RECORDS SUMMARY | 2024-08-04 13:16 | XMS_ITS | Encounter Summary ---
Author Organization [facility] Address [address] [place] [address] Care Team Providers Care Trapeze Artist Name Role Phone Bee Araiza APRN, CNP Primary Care Provide r Reason for Visit * Reason Comments Depression Registry Call 1 Call pt back in 2-5 days if no answer Encounter Details Date Type Department Care Team (Late st Contact Info) Description 04/09/2024 [facility] [address] [place] [address] Bee Araiza APRN, CNP [address] [place] [address] Depression Registry Call 1 (Call [...] Center (PSC), please warm transfercall to extension [phone] to discuss. If no answer at extension, re-route to CSS (Clinical Body And Fender Mechanic). Message to Patient/Caller: Contacted patient to complete PHQ9. Outcome of call: Left message. Krissy Bellamy LPN 04/09/2024, 1:41 PM documented in this encounter Plan of Treatment Not on file documented as of this encounter Visit Diagnoses Not on filedocumented in this encounter Care Teams Trapeze Artist Relationship Specialty Start Date End Date Bee Araiza, MANAGER PSYCHOLOGY, TRANSIT COACH OPERATOR [address] [place] [address] PCP - General Nurse Practitioner 02/11/23 documented as of this encounter
--- OUTSIDE RECORDS SUMMARY | 2024-08-04 13:16 | XMS_ITS | Encounter Summary ---
Author Organization [facility] Address [address] [place] [address] Care Team Providers Care Spider Assembler Name Role Phone Unavailable Primary Care Provider Unavailabl e Encounter Details Date Type Department Care Team (Late st Contact Info) Description 05/24/2024 Clinical Communication Division of Nephrology and Hypertension in [place], [place] [address] [place] [phone] Janie Gomez M.D., Ph.D. [address] [place] [phone] Social History Tobacco Use Types Packs/Day Years Used Date Smoking Tobacco: Never Assessed Dental Answer Date Recorded Dental: Regular Dentist Unknown 03/15/20 24 Comments Unknown Sex and Gender Information Value Date Recorded Sex Assigned at Not on file Legal Sex Female 7:49 PM PHYSICIAN ASSISTANT CERTIFIED Gender Identity Not on file Sexual Orientation [...]
--- OUTSIDE RECORDS SUMMARY | 2024-08-04 13:16 | XMS_ITS | Clinical Summary ---
Author Organization [facility] Address [address], [place] [address] Care Team Providers Care Heavy Forger Helper Name Role Phone Bee Araiza APRN, CNP Primary Care Provide r Source Comments You are receiving this document as you are listed as the primary care provider,follow-up provider, or the patient has been referred to you for consultation.This is in compliance with the Medicare andSelect Medical Trihealth Rehabilitation Hospitalcaid EHR Incentive Program,which states Providers who transition their patient to another setting of careor provider of care or refers their patient to another provider of care shouldprovide summary care record for each transition of care or referral. [facility] Allerg[facility] No known active allergies Medications Medication Sig Dispensed Refills Start Date End Date Status sertraline (ZOLOFT) 100 MG tablet Take 1 Tablet (100 mg) by mouth daily. 90 Tablet 3 02/11/2023 Active buPROPion (WELLBUTRIN XL) 150 MG 24 hour release tablet take 2 tablets by mouth daily 180 Tablet 08/02/2024 Active buPROPion (WELLBUTRIN XL) 150 MG 24 hour release tablet take 2 tablets by mouth daily 180 Tablet 05/07/2024 08/02/2024 Discontinued Active Problems Problem Noted Date Diagnosed Date KODY (generalized anxiety disorder) 02/11/2023 Current mild episode of major depressive disorde r 02/11/2023 Encounters Date Type Department Care Team Description 07/30/2024 [facility] [address] [facility] [place] [address] Bee Araiza APRN, CNP Refill (buPROPion (WELLBUTRIN XL) 150 MG 24 hour release tablet [Pharmacy Med Name: BUPROPION XL 150MG TABLETS (24 H)]) 05/06/2024 [facility] [address] [place] [address] Bee Araiza, SKI PATROL OFFICER, HAND II TUBE BENDER Refill (buPROPion (WELLBUTRIN XL) 150 MG 24 hour release tablet [Pharmacy Med Name: BUPROPION XL 150MG TABLETS (24 H)]) from Last 3 Months Immunizations Name Administration Dates Next Due DTaP 11/09/2005 Hdcv - Rabies Vaccine 03/04/2014,02/11/2014 Influenza IIV4 (Quadrivalent ) 0.5mL (42846) 08/30/2022,10/06/2020,07/12/2019,2017,08/11/2017,08/19/2016,07/21/2015 Influenza, Unspecified Formulation 10/01/2002 Pfizer Bivalent [...] patient's age to complete this topic RSV Aged Out No longer eligi ble based on patient's age to complete this topic MCV4 Aged Out No longer eligi ble based on patient's age to complete this topic Pneumococcal Aged Out No longer eligi ble based on patient's age to complete this topic Care Teams Heavy Forger Helper Relationship Specialty Start Date End Date Bee Araiza, SKI PATROL OFFICER, HAND II TUBE BENDER [address] [place], [place] [id number] PCP - General Nurse Practitioner 02/11/23
--- OUTSIDE RECORDS SUMMARY | 2024-08-04 13:16 | XMS_ITS | Encounter Summary ---
Author Organization [facility] Address [address] [place] [address] Care Team Providers Care Sleeve Tailor Name Role Phone Fior Mejia MD Unavailable Bee Vicente MD Primary Care Provider [phone] Bee Vicente MD Unavailable [phone] Kimber Conte APRN Unavailable Flori De Luna MD Unavailable [phone] Kecia Segovia Primary Care Provider [phone] Encounter Details Date Type Department Care Team (Late st Contact Info) Description 09/13/2023 [facility] Medical Advice [address] [phone] Ana To Social History Tobacco [...] week 06/04/2022 How often do you attend [facility] or druze services? Never 06/04/2022 Do you belong to any clubs o r organizations such as mormonism groups, unions, fraternal or athletic groups, or [...] Answer Date Recorded PHQ-2 Score 3 06/04/2022 [employer] [facility] Occupat ional [facility] - Occupational Stress Questionnaire Answer Date [...] place to sleep or slept in a retirement (including now)? No 06/04/2022 Adolescent Education Answer [...] documented as of this encounter Care Teams Sleeve Tailor Relationship Specialty [place] [address] [place] [address] PCP - General Family Medicine 04/16/22 03/16/24 Kecia Segovia PA [address] [place] [address] PCP - General 03/17/24 Fior Mejia MD [address] [address] Assigned OBGYN Provider 02/07/22 [place] [address] [place] [address] Assigned PCP 04/17/22 Kimber Conte APRN CNM [facility] [address] [place] [address] Travel Registered Nurse Oncology Midwives 01/09/24 01/09/24 Flori De Luna MD [address] [place] [address] Physician clinical biostatistician 01/09/24 documented as of this encounter
--- OUTSIDE RECORDS SUMMARY | 2024-08-04 13:16 | XMS_ITS | Encounter Summary ---
Author Organization [facility] Address [address] [place] [address] Care Team Providers Care Power Chisel Operator Name Role Phone Fior Mejia MD Unavailable Bee Vicente MD Primary Care Provider [phone] Bee Vicente MD Unavailable [phone] Flori De Luna MD Unavailable [phone] Kecia Segovia Primary Care Provider [phone] Encounter Details Date Type Department Care Team (Late st Contact Info) Description 02/03/2024 [facility] Medical Advice [address] [phone] Angelia Marte, POLICE AIDE Social History Tobacco Use Types Packs/Day Years [...] often do you attend chur ch or sikh services? Never 06/04/2022 Do you belong to any clubs o r organizations such as lutheran groups, unions, fraternal or athletic groups, or [...] 3 06/04/2022 [facility] Occupat ional Health - Occupational [...] place to sleep or slept in a group home (including now)? No 06/04/2022 Adolescent Education Answer Date Record ed Getting School Help Needed Not on file 07/01 Comments No Sex and Gender Information Value Date Recorded Sex Assigned at Female 03/05/2021 2:58 PM CDT Legal Sex Female 3:27 PM CDT Gender Identity Female 03/05/2021 2:58 PM CDT Sexual Orientation Straight 03/05/2021 2 :58 PM CDT documented as of this encounter Plan of Treatment Not on file documented as of this encounter Visit Diagnoses Not on filedocumented in this encounter Additional Health Concerns Assessment Noted Time PHQ-9 Depression Total Score: 8 06/04/20 22 10:15 AM CDT documented as of this encounter Care Teams Power Chisel Operator Relationship Specialty [place] [address] [place] [address] PCP - General Family Medicine 04/16/22 03/16/24 Kecia Segovia PA [address] [place] [address] PCP - General 03/17/24 Fior Mejia MD [address] [place] [address] Assigned OBGYN Provider 02/07/22 [place] [address] [place] [address] Assigned PCP 04/17/22 Flori De Luna MD [address] [place] [address] Physician technology education teacher 01/09/24 documented as of this encounter
--- OUTSIDE RECORDS SUMMARY | 2024-08-04 13:16 | XMS_ITS | Referral Summary ---
Author Organization [facility] Address [address] [place] [address] Care Team Providers Care Restaurant Expeditor Name Role Phone Unavailable Primary Care Provider Unavailabl e Source Comments Patient records contain information from all sites at [facility]. For routine questions regarding patient records, call [phone] during business hours, M-F 8:00 AM - 5:00 PM Central Time. Record requests for emergency care only can be directed to [phone] at any time.[facility] Encounters Date Type Department Care Team Description 07/17/2024 1:00 PM CDT External Outreach Division of Nephrology and Hypertension in [place], [place] [address] [place] [phone] Janie Gomez M.D., Ph.D. Proteinuria (Primary Dx); Hypertension Essential Primary 06/18/2024 4:00 PM CDT External Outreach Division of Nephrology and Hypertension in [address] [address] Janie Gomez M.D., Ph.D. Proteinuria (Primary Dx); Hypertension Essential Primary 05/24/2024 Clinical Communication Division of Nephrology and Hypertension in [address] [address] Janie Gomez M.D., Ph.D. 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
--- OUTSIDE RECORDS SUMMARY | 2024-08-04 13:16 | XMS_ITS | Encounter Summary ---
Author Organization [facility] Address [address] [place] [address] Care Team Providers Care Medical Surgery Nurse Name Role Phone Fior Mejia MD Unavailable Bee Vicente MD Primary Care Provider [phone] Bee Vicente MD Unavailable [phone] Flori De Luna MD Unavailable [phone] Kecia Segovia Primary Care Provider [phone] Reason for Visit * Reason Onset Date Comments MyChart Communication 01/31/2024 Encounter Details Date Type Department Care Team (Latest Contact Info) Description 01/31/2024 [facility] [address] [phone] Kylah Trotter, RN MyChart Communication Social History [...] How often do you attend chur or zoroastrian services? Never 06/04/2022 Do you belong to any clubs o r organizations such as episcopal groups, unions, fraternal or athletic groups, or [...] Answer Date Recorded PHQ-2 Score 3 06/04/2022 [facility] of Occupat ional [facility] - Occupational Stress Questionnaire Answer Date [...] documented as of this encounter Care Teams Medical Surgery Nurse Relationship Specialty [place] [address] [place] [address] PCP - General Family Medicine 04/16/22 03/16/24 Kecia Segovia PA [address] [place] [address] PCP - General 03/17/24 Fior Mejia MD [address] [address] Assigned OBGYN Provider 02/07/22 [place] [address] [place] [address] Assigned PCP 04/17/22 Flori De Luna MD [address] [facility] [address] [place], [place] [address] Physician account resolution expert 01/09/24 documented as of this encounter
--- OUTSIDE RECORDS SUMMARY | 2024-08-04 13:16 | XMS_ITS | Clinical Summary ---
Author Organization [facility] Address [address] [place] [address] Care Team Providers Care Carver Hand Name Role Phone Unavailable Primary Care Provider Unavailabl e Source Comments Patient records contain information from all sites at [facility]. For routine questions regarding patient records, call [phone] during business hours, M-F 8:00 AM - 5:00 PM Central Time. Record requests for emergency care only can be directed to [phone] at any time.[facility] Medications labetaloL 200 mg tablet Take 2 tablets (400 mg total) by mouth 2 (two) times a day. 120 tablet 11 06/18/2024 Active Active Problems Problem Noted Date Diagnosed Date Hypertension Essential Primary 07/17/2024 Proteinuria 04/26/2024 Encounters Date Type Department Care Team Description 07/17/2024 1:00 PM CDT External Outreach Division of Nephrology and Hypertension in [place], [place] [address] [place] [phone] Janie Gomez M.D., Ph.D. Proteinuria (Primary Dx); Hypertension Essential Primary 06/18/2024 4:00 PM CDT External Outreach Division of Nephrology and Hypertension in [place], [place] [address] [place] [phone] Janie Gomez M.D., Ph.D. Proteinuria (Primary Dx); Hypertension Essential Primary 05/24/2024 Clinical Communication Division of Nephrology and Hypertension in [place], [place] [address] [place] [address] Janie Gomez M.D., Ph.D. 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
--- OUTSIDE RECORDS SUMMARY | 2024-08-04 13:16 | XMS_ITS | Encounter Summary ---
Author Organization [facility] Address [address] [place] [address] Care Team Providers Care Bathroom Tiling Professional Name Role Phone [facility] Primary Care Provider Noel Dallas MD Unavailable Fior Mejia MD Unavailable Bee Vicente MD Primary Care Provider [phone] Bee Vicente MD Unavailable [phone] Kimber Conte APRN Unavailable Flori De Luna MD Unavailable [phone] Kecia Segovia Primary Care Provider [phone] Reason for Referral * Rehab Therapy Physical Therapy (Routine: Next available opening) - Closed Specialty Diagnoses / Procedures Referred By Contmaynor t Referred To Contact Physical Therapy [place] [address] [place] [address] Phone: tel: fax: [address] [address] Phone: tel: Referral ID Status Reason Start Date Expiration Date Visits Re quested Visits Authorized [id number] Closed 04/02/2022 04/02/2023 1 1 Question Answer Preferred Location: [facility] Scheduling Instructions: If you have not heard from the scheduling office within 2 business days, please call [phone] for [facility], for [place] and [phone] for [place]. Course of Action Evaluation [...] office within 2 business days, please call [phone] for [facility], for [place] and [phone] for [place]. Reason for Visit * Reason Onset Date Comments Referral 04/02/2022 Encounter Details Date Type Department Care Team (Late st Contact Info) Description 04/02/2022 MyC Medical Advice [facility] [address] [place] [phone] [place] [address] [place] [address] Referral Social History Tobacco Use Types Packs/Day [...] Answer Date Recorded PHQ-2 Score 2 04/06/2021 Comments Unknown Sex and Gender Information Value [...] pt MyChart message. Pt was seen by Riley on 03/13/22 with VV. Was advised to [...] patients request for OBGYN referal Ana To/ Cold Mill Operator documented in this encounter Plan of Treatment [...] documented as of this encounter Care Teams Bathroom Tiling Professional Relationship Specialty Start Date End Date [facility] [address] [place] [address] PCP - General 07/17/19 04/15/22 [place] [address] [place] [address] PCP - General Family Medicine 04/16/22 03/16/24 Kecia Segovia PA 1400 [place] [address] PCP - General 03/17/24 [place] [address] [place] [address] Assigned PCP 04/12/21 04/16/22 Fior Mejia MD [address] [place], [place] [address] Assigned OBGYN Provider 02/07/22 [place] [address] [place] [address] Assigned PCP 04/17/22 Kimber Conte APRN CNM [facility] [address] [place], [place] [address] Maker Up Folding Midwives 01/09/24 01/09/24 Flori De Luna MD [address] [place] [id number] Physician supervisor volunteer services 01/09/24 documented as of this encounter
--- OUTSIDE RECORDS SUMMARY | 2024-08-04 13:16 | XMS_ITS | Encounter Summary ---
Author Organization [facility] Address [address] [place] [address] Care Team Providers Care Charrer Name Role Phone Bee Fitch APRN, CNP Primary Care Provide r Reason for Visit * Reason Comments Refill buPROPion (WELLBUTRI N XL) 150 MG 24 hour release tablet [Pharmacy Med Name: BUPROPION XL 150MG TABLETS (24 H)] Encounter Details Date Type Department Care Team (Late st Contact Info) Description 05/06/2024 [facility] [address] [place] [address] Bee Fitch APRN, CNP [address] [place], [place] [id number] Refill (buPROPion (WELLBUTRIN XL) 150 MG 24 [...] need a visit for any further refills. [phone] to schedule. * Bee Fitch APRN, CNP - 05/07/2024 4:52 PM CDT Please let patient know the prescription was sent to their pharmacy and help schedule a medication follow up visit with primary school teacher. There will be no further refills until [...] CDT Further Assistance Needed on Refill from Quartz Cutter Patient is due for Qualifying Visit Medication [...] Age: 39 [employer] Embedded Refills, Reference: [id number], 05/06/2024 9:51:32 AM CDT, Pool: ANG Refill Centralized Services - Primary Care [[id number]] ([id number]) documented in this encounter Plan of Treatment Not on file documented as of this encounter Visit Diagnoses Not on filedocumented in this encounter Care Teams Charrer Relationship Specialty Start Date End Date Bee Fitch, RAMIRO, FELT TIPPING MACHINE TENDER [address] [place] [address] PCP - General Nurse Practitioner 02/11/23 documented as of this encounter
--- OUTSIDE RECORDS SUMMARY | 2024-08-04 13:16 | XMS_ITS | Encounter Summary ---
Author Organization [facility] Address [address] [place] [address] Care Team Providers Care Registered Route Associate Name Role Phone Fior Mejia MD Unavailable Bee Vicente MD Primary Care Provider [phone] Bee Vicente MD Unavailable [phone] Kimber Conte APRN [facility] Unavailable Flori De Luna MD Unavailable [phone] Kecia Segovia Primary Care Provider [phone] Reason for Visit * Reason Onset Date Comments MyChart Communication 08/11/2023 Encounter Details Date Type Department Care Team (Latest Contact Info) Description 08/11/2023 [facility] Medical Advice [facility] [address] [phone] Kylah Trotter, RN MyChart Communication Social History [...] often do you attend chur ch or christianity services? Never 06/04/2022 Do you belong to any clubs o r organizations such as latter-day groups, unions, fraternal or athletic groups, or [...] Answer Date Recorded PHQ-2 Score 3 06/04/2022 [facility] of Occupat ional [facility] - Occupational Stress Questionnaire Answer [...] place to sleep or slept in a penitentiary (including now)? No 06/04/2022 Adolescent Education Answer [...] 2 weeks. Agree with your overall recommendations ASTRUCTURE ANALYST * Telephone Encounter - Kylah Trotter RN - 08/15/2023 8:05 AM CST SAB at home over the weekend 08/12/2308/17 scheduled for 1st OB US and visit - ok to cancel w instructions given? Or want to see her Tuesday? Kylah Trotter RN on 08/15/2023 at 8:07 AM ASTRUCTURE ANALYST documented in this encounter Plan of Treatment Not on file documented as of this encounter Visit Diagnoses Not on filedocumented in this encounter Additional Health Concerns Assessment Noted Time PHQ-9 Depression Total Score: 8 06/04/20 10:15 AM CDT documented as of this encounter Care Teams Registered Route Associate Relationship Specialty [place] [address] [address] PCP - General Family Medicine 04/16/22 03/16/24 Kecia Segovia PA [address] [place] [address] PCP - General 03/17/24 Fior Mejia MD [address] [place] [address] Assigned OBGYN Provider 02/07/22 [place] [address] [place] [address] Assigned PCP 04/17/22 Kimber Conte APRN [facility] [address] [place] [address] Supervisory Historian Midwives 01/09/24 01/09/24 Flori De Luna MD [address] [place] [address] Physician hand plug shaper 01/09/24 documented as of this encounter
--- OUTSIDE RECORDS SUMMARY | 2024-08-04 13:16 | XMS_ITS | Encounter Summary ---
Author Organization [facility] Address [address] [place] [address] Care Team Providers Care Special Event Assistant Name Role Phone Fior Mejia MD Unavailable Bee Vicente MD Primary Care Provider [phone] Bee Vicente MD Unavailable [phone] Kimber Conte APRN Unavailable Flori De Luna MD Unavailable [phone] Kecia Segovia Primary Care Provider [phone] Encounter Details Date Type Department Care Team (Late st Contact Info) Description 05/23/2023 [facility] [address] [phone] Monie Wilks MA Social History [...] week 06/04/2022 How often do you attend [facility] or ca[facility]ism services? Never 06/04/2022 Do you belong to [...] Recorded PHQ-2 Score 3 06/04/2022 [facility] of Occupat ional [facility] - Occupational Stress Questionnaire Answer [...] in a intermediate (including now)? No 06/04/2022 Comments No Sex and Gender Information Value [...] documented as of this encounter Care Teams Special Event Assistant Relationship Specialty [place] [address] [place] [address] PCP - General Family Medicine 04/16/22 03/16/24 Kecia Segovia PA [address] [place] [address] PCP - General 03/17/24 Fior Mejia MD [address] [address] Assigned OBGYN Provider 02/07/22 [place] [address] [place] [address] Assigned PCP 04/17/22 Kimber Conte APRN CNM [facility] [address] [place] [address] Open Pit Quarry Supervisor Midwives 01/09/24 01/09/24 Flori De Luna MD [address] [place] [address] servicer 01/09/24 documented as of this encounter
--- OUTSIDE RECORDS SUMMARY | 2024-08-04 13:16 | XMS_ITS | Encounter Summary ---
Author Organization [facility] Address [address] [place] [address] Care Team Providers Care Business Development Agent Name Role Phone Tiffanie Fitch APRN, CNP Primary Care Provide r Reason for Visit * Reason Comments Refill buPROPion (WELLBUTRI N XL) 150 MG 24 hour release tablet [Pharmacy Med Name: BUPROPION XL 150MG TABLETS (24 H)] Encounter Details Date Type Department Care Team (Late st Contact Info) Description 07/30/2024 [facility] [address] [place] [address] Tiffanie Fitch APRN, CNP [address] [place], [place] [id number] Refill (buPROPion (WELLBUTRIN XL) 150 MG 24 [...] as of this encounter Nursing Notes * ReyezFrida - 08/01/2024 1:25 PM CDT Medication Refill - Due for [...] ???Refuse All?? quick action to address request. * Valeri Theodore RN - 08/01/2024 1:13 PM CDT Further Assistance Needed on Refill from Education Department Registrar Patient is due for Qualifying Visit Medication is still pending. Patient is due for a Office/Video Visit in the next 30 days. Call Patient and document using .REX. After attempting to schedule patient: Please route to: Tiffanie Fitch APRN, JALEN or covering provider. Requested Prescriptions Pending Prescriptions Disp Refills buPROPion (WELLBUTRIN XL) 150 MG 24 hour release tablet [Pharmacy Med Name: BUPROPION XL 150MG TABLETS (24 H)] 180 Tablet 0 Sig: take 2 tablets by mouth daily * Trina Lunsford Xrwcomm - 07/30/2024 9:44 AM CDT buPROPion (WELLBUTRIN XL) 150 MG 24 hour release tablet [Pharmacy Med Name: BUPROPION XL 150MG TABLETS (24 H)] Medication started: 12/06/2022 Last ordered by TIFFANIE FITCH: 05/07/2024 (84 days ago) QTY: 180, Refills: 0, Sig: take 2 tablets by mouth daily (unchanged) -> An office visit is overdue (performed 18 months ago, required every 12 months). Last qualifying visit: 02/11/2023 (with TIFFANIE FITCH) Next scheduled visit: None Age: 39 [facility] Embedded Refills, Reference: [id number], 07/30/2024 9:44:45 AM CDT, Baldev: ANG Refill Centralized Services - Primary Care [[id number]] ([id number]) documented in this encounter Plan of Treatment Not on file documented as of this encounter Visit Diagnoses Not on filedocumented in this encounter Care Teams Business Development Agent Relationship Specialty Start Date End Date Tiffanie Fitch, ELECTRONICS PROCESSOR, CHARGE ACCOUNT CLERK [address] [place] [address] PCP - General Nurse Practitioner 02/11/23 documented as of this encounter
--- OUTSIDE RECORDS SUMMARY | 2024-08-04 13:16 | XMS_ITS | Referral Summary ---
Author Organization [facility] Address [address] [place] [address] Care Team Providers Care Fourchette Sewer Name Role Phone Fior Mejia MD Unavailable Bee Vicente MD Unavailable [phone] Flori De Luna MD Unavailable [phone] Kecia Segovia Primary Care Provider [phone] Allergies No known active allergies Medications buPROPion [...] How often do you attend chur or alevism services? Never 06/04/2022 Do you belong to [...] [facility] of Occupat ional Health - Occupational [...] PM CDT) HIV 1&2 EXT Non-Reacti ve [facility] Blood 01/31/2024 2:49 PM CDT [facility] - 01/31/2024 2:49 PM CDT [facility] - External Lab Results us Provider Outside LAB - HIM EXTERNAL RESULT Final Result [facility] [address] [phone] * Hepatitis C (HIM External Result) (01/31/2024 2:49 PM CDT) Hep C HIM See Scanned Document [facility] 01/31/2024 2:49 PM CDT [facility] - 01/31/2024 2:49 PM CDT [facility] - External Lab Results us Provider Outside LAB - HIM EXTERNAL RESULT Final Result Performing Organization Address City/[facility]/ZIP Co de Phone Number [facility] [address] [place] [address], [facility] [phone] * Glucose (External Result) (01/05/2024 10:48 PM CDT) [facility] Glucose (External) 109 60 - 115 mg/dL [facility] Blood 01/05/2024 10:4 8 PM CDT [facility] - 01/05/2024 10:48 PM CDT [facility] ED NOTES us Provider Outside LAB - [facility] EXTERNAL RESULT Final Result Performing Organization Address City/[facility]/ZIP Co de Phone Number [facility] [address] [place] [address], [facility] [phone] * (ABNORMAL) Lipid panel reflex to direct [...] BLOOD ORDERABLES Fi nal Result [facility] [address] Lab (no room number, 1st floor of clinic) [place] [address], [place] [phone] * Pap thin layer screen with HPV [...] component of this testing was completed at [facility] 02/10/2022 9:42 AM CDT [facility] Brushing CERVIX UTERI STRUCTURE / Unknown Non-blood Collection / Unknown 02/05/2022 3:37 PM CDT 02/05/2022 4:08 PM CDT Fior NOLAN - OLVIN IBANEZ Final Result [facility] Specialty Lab [address] [facility] [address] [facility], Room [address] [place] [address], [facility] [phone] * HPV High Risk Types DNA Cervical (02/05/2022 3:37 PM CDT) Other HR HPV Negative Negative 02/12/2022 1:55 PM CDT [facility] HPV16 DNA Negative Negative 02/12/2022 1:55 PM CDT [facility] HPV18 DNA Negative Negative 02/12/2022 1:55 PM CDT [facility] FINAL DIAGNOSIS This patient's sample is negative for HPV DNA. This test was developed and its performance characteristics determined by the [facility], Molecular Diagnostics Laboratory. It has not been [...] CDT Fior Mejia MD LAB - BLOOD ORDERABLES Final Res ult [facility] [address] [facility], Room [address] [id number], [facility] [phone] * Non Invasive Test Cell Free DNA (07/25/2019 12:09 PM CDT) Lab Scanned Result NON INVAS DNA-Scanned [facility] Blood specimen (specimen) 07/25/2019 12:09 PM CDT us Atul Han MD LAB - BLOOD ORDERABLES Allyssa pierce Result [facility] from Last 3 Months or Most Recently Relevant to Health Maintenance Insurance BLUE PLUS BLUE PLUS Care Teams Fourchette Sewer Relationship Specialty Start Date End Date Kecia Seg[place] [address] PCP - General 03/17/24 Fior Mejia MD [address] [place] [address] [place] [address] Assigned OBGYN Provider 02/07/22 [place] [address] [place] [address] Assigned PCP 04/17/22 Flori De Luna MD [address] [facility] [address] [place] [address] Physician senior bi architect 01/09/24
--- OUTSIDE RECORDS SUMMARY | 2024-08-04 13:16 | XMS_ITS | Encounter Summary ---
Author Organization [facility] Address [address] [place] [address] Care Team Providers Care Ent Consultant Name Role Phone Fior Mejia MD Unavailable Bee Vicente MD Primary Care Provider [phone] Bee Vicente MD Unavailable [phone] Kimber Conte APRN Unavailable Flori De Luna MD Unavailable [phone] Kecia Segovia Primary Care Provider [phone] Encounter Details Date Type Department Care Team (Late st Contact Info) Description 07/19/2023 [facility] Medical Advice [facility] [address] [phone] Bee Hdz, RN Social History Tobacco Use [...] week 06/04/2022 How often do you attend [facility] or scientologist services? Never 06/04/2022 Do you belong to any clubs o r organizations such as zoroastrianism groups, unions, fraternal or athletic groups, or [...] Answer Date Recorded PHQ-2 Score 3 06/04/2022 [facility] of Occupat ional Health - Occupational Stress [...] documented as of this encounter Care Teams Ent Consultant Relationship Specialty [place] [address] [place] [address] PCP - General Family Medicine 04/16/22 03/16/24 Kecia Segovia PA [address] [place] [address] PCP - General 03/17/24 Fior Mejia MD [address] [address] Assigned OBGYN Provider 02/07/22 [place] [address] [place] [address] Assigned PCP 04/17/22 Kimber Conte APRN CNM [facility] [address] [place] [address] Director Diversity Midwives 01/09/24 01/09/24 Flori De Luna MD [address] [place] [address] Physician house calls nurse 01/09/24 documented as of this encounter
--- OUTSIDE RECORDS SUMMARY | 2024-08-04 13:16 | XMS_ITS | Encounter Summary ---
Author Organization [place] Address [address] [place] [address] Care Team Providers Care Manager Transmission Name Role Phone Fior Mejia MD Unavailable Bee Vicente MD Primary Care Provider [phone] Bee Vicente MD Unavailable [phone] Kimber Conte APRN Unavailable Flori De Luna MD Unavailable [phone] Kecia Segovia Primary Care Provider [phone] Reason for Referral * Consultation (Routine: Next available opening) - Closed Specialty Diagnoses / Procedures Referred By Kacie rachel Referred To Contact Otolaryngology Diagnoses Lipoma [place] [address] [place] [address] Phone: tel: fax: [facility] [address] Phone: tel: fax: Referral ID Status Reason Start Date Expiration Date Visits Re quested Visits Authorized [id number] Closed 06/17/2022 06/17/2023 1 1 Question Answer Reason for Referral: Other My Clinical Question Is: lipoma Scheduling Instructions: [facility] will call you to coordinate your care as prescribed by the provider. If you don? t hear from a outside energy sales representatives within 2 business days, please call [phone]. Comments Please be aware that coverage of these services is subject to the terms and limitations of your health insurance plan. Call member services at your health plan with any benefit or coverage questions. [facility] will call you to coordinate your care as prescribed by the provider. If you don? t hear from a outside energy sales representatives within 2 business days, please call [phone]. Encounter Details Date Type Department Care Team (Late st Contact Info) Description 06/16/2022 MyC Medical Advice [facility] [id number] [place] [address] [place] [address] [place] [address] Lipoma of skin and subcutaneous tissue [...] any clubs o r organizations such as yarsanism groups, unions, fraternal or athletic groups, or [...] Answer Date Recorded PHQ-2 Score 3 06/04/2022 [facility]at [facility] - Occupational Stress Questionnaire Answer Date [...] place to sleep or slept in a mcc (including now)? No 06/04/2022 Comments No Sex [...] Associated Diagnoses Orde r Schedule Adult ENT Tub Rider Referral Referral Routine: Next available opening Lipoma [...] as of this encounter Care Teams Manager Transmission Relationship Specialty [place] [address] [place] [address] PCP - General Family Medicine 04/16/22 03/16/24 Kecia Segovia PA [address] [place] [address] PCP - General 03/17/24 Fior Mejia MD [address] [place] [address] Assigned OBGYN Provider 02/07/22 [place] [address] [place] [address] Assigned PCP 04/17/22 Kimber Conte APRN [facility] [address] [place] [address] Machine Inspector Midwives 01/09/24 01/09/24 Flori De Luna MD [address] [place] [address] Physician rural carrier associate 01/09/24 documented as of this encounter
--- OUTSIDE RECORDS SUMMARY | 2024-08-04 13:16 | XMS_ITS | Encounter Summary ---
Author Organization [place] Address [address] [place] [address] Care Team Providers Care Mate Relief Name Role Phone [facility] Primary Care Provider Noel Dallas MD Unavailable Fior Mejia MD Unavailable Bee Vicente MD Primary Care Provider [phone] Bee Vicente MD Unavailable [phone] Kimber Conte APRN Unavailable Flori De Luna MD Unavailable [phone] Kecia Segovia Primary Care Provider [phone] Encounter Details Date Type Department Care Team (Late st Contact Info) Description 04/06/2022 [facility] [address] [place] [address] Ana To Social History Tobacco [...] documented as of this encounter Care Teams Mate Relief Relationship Specialty Start Date End Date Clinic, [address] [address] PCP - General 07/17/19 04/15/22 [place] [address] [place] [address] PCP - General Family Medicine 04/16/22 03/16/24 Kecia Segovia PA [address] [place] [address] PCP - General 03/17/24 [place] [address] [place] [address] Assigned PCP 04/12/21 04/16/22 Fior Mejia MD [address] [address] Assigned OBGYN Provider 02/07/22 [place] [address] [place] [address] Assigned PCP 04/17/22 Kimber Conte APRN CNM [facility] [address] [place] [address] Grinder Operator Automatic Midwives 01/09/24 01/09/24 Flori De Luna MD [address] [place] [address] Physician spouter 01/09/24 documented as of this encounter
--- OUTSIDE RECORDS SUMMARY | 2024-08-04 13:16 | XMS_ITS ---
Author Organization [facility] Address [address] [place] [address] Care Team Providers Care Home Health Cna Name Role Phone Unavailable Unavailable Unavailable Surgery Details Not on file Complications Check Surgery Details section. Procedure Estimated Blood Loss Check Surgery Details section. Procedure Findings Check Surgery Details section. Procedure Specimens Taken Check Surgery Details section.
--- OUTSIDE RECORDS SUMMARY | 2024-08-04 13:17 | XMS_ITS | Clinical Summary ---
Author Organization [facility] Address [place], [place] [address] Care Team Providers Care Major Assembly Inspector Name Role Phone Clinic, [facility] Primary Care Pr ovider Allergies No [...] Encounters Date Type Department Care Team Description 07/31/2024 Orders Only [facility] Scanner 1 scan: (1-Ord) [facility] GUILLORY-SECTION GLOBAL, 07/31/2024 07/31/2024 Lab Requisition [facility] [phone] Iwona Garza MD 07/31/2024 Lab Requisition [facility] [phone] Iwona Garza MD 07/31/2024 Lab Requisition [facility] [phone] Iwona Garza MD 07/25/2024 Orders Only [facility] Scanner 1 scan: (1-Ord) INCOMING RECORDS-US, [facility], 07/25/2024 07/09/2024 Orders Only [facility] Scanner 1 scan: (1-Ord) [facility] OB BIOPHYSICAL PROFILE, 07/09/2024 07/03/2024 Orders Only [facility] Scanner 1 scan: (1-Ord) [facility] BIOPHYSICAL PROFILE, 07/03/2024 06/26/2024 Orders Only [facility] Scanner 1 scan: (1-Ord) [facility] OB BPP W/ OB F/U, [...] history exists Influenza for age 9-49 06/10/2024 , 10/06/2020, 07/12/2019, Additional history exists Depression screening for age 12+ 01/03/2025 01/04/2024, 01/04/2024 BMI (ht and wt on same day) for age 18+ 03/12/2025 03/12/2024, 01/04/2024 Pap test for age 21-65 02/05/2027 2 (Verified in Care Everywhere or Patient Record), 03/23/2017, 03/23/2017 Tetanus booster 11/13/2029 11/13/2019, 11/2016, 07/08/2015 RSV vaccine for adults or (1 - 1-dose 75+ series) 2059 Tdap Completed 11/13/2019, 11/2016, 07/08/2015 Pneumococcal series for age 6-64 Aged Out No longer eligible based on patient's age to complete this topic Procedures Procedure Name Priority Date/Time Associated Diagnosis Comments LAB TRACKING EVENT Routine 07/31/2024 8: 17 AM CDT PATH TISSUE EXAM PLACENTA Routine 07/31/2024 8:17 AM CDT SCAN-OPERATIVE/PROC EDURE REPORT 07/31/2024 12:00 AM CDT SCAN CORRESP-IMAGING 07/25/2024 12:00 AM CDT SCAN-ULTRASOUND REPORT 07/09/2024 12:00 AM CDT SCAN-ULTRASOUND REPORT 07/03/2024 12:00 AM CDT SCAN-ULTRASOUND REPORT 06/26/2024 12:00 AM CDT ADMISSIONS MANAGER RN THIN PREP PAP SCREEN IMAGED Routine 03/23/2017 1:30 PM CDT from Last 3 Months or Most Recently Relevant to Health Maintenance Results * LAB TRACKING EVENT (07/31/2024 8:17 AM CDT) Other (Other) Client Collect / Unknown 07/31/2024 8:17 AM CDT 07/31/2024 2:12 PM CDT Iwona Garza MD LAB BILL ONLY [facility] [address] [place] [address], [place] * PATH TISSUE EXAM PLACENTA (07/31/2024 8:17 AM CDT) Case Report Pathology Report ?Case: [id number] ? Authorizing Provider: ??Iwona Garza MD ?? Collected: ? 07/31/2024 0817 ? Ordering Location: ? [facility] ?Received: ?07/31/2024 1758 ? Pathologist: ? Joseph Lee MD ? Specimens: ?? A) - Placenta ? B) - Bilateral Fallopian Tubes ? 08/03/2024 2:34 PM CDT [facility] Final Diagnosis A) PLACENTA, DELIVERY: 1. Third trimester beverly placenta with the following characteristics: ?? a. Weight: 481 grams (50th percentile for gestational age 37 weeks) ?? b. Membranes with no significant histologic alterations ?? c. Three vessel umbilical cord with no significant histologic alterations ?? d. Placental disc without infarcts ?? e. Placental disc without intervillous thrombi ?? f. Chorionic villi hypermature for gestational age with increased syncytial knotting ?? g. Decidual arteriopathy present ? g. Villous chorangiosis 2. Negative for chorioamnionitis, funisitis, and villitis B) BILATERAL FALLOPIAN TUBES, SALPINGECTOMY: 1. Portions of fimbriated fallopian tubes with complete lumina identified 2. Cystic Walthard rests, benign 3. Negative for malignancy 08/03/2024 2:34 PM [facility] Comment A. The patient's clinical history of hypertension is noted. Some histologic features include decidual arteriopathy, villous maldevelopment (both seen here), infarcts, or abruption can be associated with hypertension/ecla mpsia. Of note these placental pathologic features do not necessarily correlate with the severity of clinical disease. Decidual arteriopathy has also been associated with chronic hypertension (as opposed to induced hypertension). Placental features that have been associated with gestational and/or maternal diabetes include an enlarged placenta, villous immaturity or increased villous vessel density (chorangiosis-see n here).?? Clinical correlation with the patient's diabetic history is recommended. 08/03/2024 2:34 PM [facility] Clinical Information 39-year-old -0-1-4, delivery at 37 weeks 3 days, male infant 2800 g. Maternal hypertension. Sterilization. 08/03/2024 2:34 PM [facility] Gross Description A) Received fresh labeled with the patient's name and placenta, is a 23 x 18 x 2 cm, 481 g oval placenta with 34 cm long trivascular umbilical cord inserting centrally 7.5 cm from the margin. ??No cord knots or hemorrhages are seen. ??Graff membranes insert marginally with a rupture point 8 cm from the margin. ??The surface has a purplish blue appearance with normally ramifying vessels. ??The maternal surfaces intact with small amount of loosely adherent blood clot. ??On cut section, there are no discrete lesions identified. Cafeteria Monitor sections are submitted as follows: 1. ??Proximal and distal umbilical cord 2. ??Membranes 3. ??Insertion point of cord 4, 5. ??Full-thickness sections through central portion of placenta TRB 07/31/2024 B) Received in formalin, labeled with the patient's name and right and left fallopian tubes, are 2 nonoriented fimbriated fallopian tubes measuring 10 x 0.8 cm and 11 x 0.8 cm. ??Both have smooth serosa and patent lumen throughout. ??The longer tube is inked blue and banking representative sections are submitted as follows: 1. ??Cross-sections and entire fimbriated end of noninked tube 2. ??Cross-sections and entire fimbriated end of blue inked tube TRB 07/31/2024 08/03/2024 2:34 PM CDT [facility] Microscopic Description The final diagnosis is based on microscopic examination of appropriate sections of all specimens. 08/03/2024 2:34 PM CDT [facility] Additional Information Interpreted at [facility] - [address] [address] 08/03/2024 2:34 PM CDT [facility] Tissue SPECIMEN FROM PLACENTA / Unknown 07/31/2024 8:17 AM CDT 07/31/2024 5:58 PM CDT Tissue specimen (specimen) (Bilateral Fallopian Tubes) 07/31/2024 8:17 AM CDT 07/31/2024 5:58 PM CDT Iwona Garza MD PATHOLOGY/CYTOLOG Y [facility] [address] [place] [address], * SCAN-OPERATIVE/PROCEDURE REPORT (07/31/2024 12:00 AM CDT) Scanner OTHER * SCAN CORRESP-IMAGING (07/25/2024 12:00 AM CDT) Anatomical Region Laterality Modality Other Scanner OTHER * SCAN-ULTRASOUND REPORT (07/09/2024 12:00 AM CDT) Only the most recent of3 resultswithin the time period is included. Anatomical Region Laterality Modality Other Scanner OTHER * ADMISSIONS MANAGER RN THIN PREP PAP SCREEN IMAGED (03/23/2017 1:30 PM CDT) Case Report Gynecologic Cytology Report ? Case: [id number] ? Authorizing Provider: ??Fior Mejia MD ?Collected: ? 03/23/2017 1330 ? First Screen: ?Lizzeth Ham ?Received: ?03/23/2017 1803 ? Specimen: ?ADMISSIONS MANAGER RN ThinPrep Vial Screening, Cervical/Vaginal ? 03/30/2017 8:39 AM CDT [facility] INTERPRETATION/ RESULT NEGATIVE FOR INTRAEPITHELIAL LESION OR MALIGNANCY (NIL) (none) 03/30/2017 8:39 AM CDT [facility] IMEN ADEQUACY Satisfactory for evaluation Endocervical component present 03/30/2017 8:39 AM CDT [facility] HPV REQUEST HPV and PAP 03/30/2017 8:39 AM CDT [facility] Last Pap Date 03/30/2017 8:39 AM CDT [facility] Comment:2012 Last Pap Result NIL 7 8:39 AM CDT [facility] Menstrual Status 03/30/2017 8:39 AM CDT [facility] Automated Review Successful 03/30/2017 8:39 AM CDT [facility] Comment:Specimen processed s uccessfully by automated metal furniture panel coverer device, [employer] Imaging System, [employer] ANCILLARY TESTING ADMISSIONS MANAGER RN HPV Ordered, Please see separate report 03/30/2017 8:39 AM CDT [facility] Note The pap test [...] exclude pre-malignant and malignant lesions. Interpreted at [facility] ([facility] Lab, [facility], [facility], [facility], [facility], [facility], [facility]) 03/30/2017 8:[address] [facility] Other (Cervical/Vagina l) 03/23/2017 1:30 PM CDT 03/23/2017 6:03 PM CDT Fior Mejia MD PATHOLOGY[facility]Y [facility] [address] [place] [address], from Last 3 Months or Most Recently Relevant to Health Maintenance Care Teams Major Assembly Inspector Relationship Specialty Start Date End Date Clinic, [facility] [address] [place] [address] PCP - General 05/21/24
[2024-08-04] MEDS: ACETAMINOPHEN 500 MG TABLET 1000 MG PO (13:44)
[2024-08-04 13:53] LABS: Hematocrit 33.7 % (33.0-51.0); Mean Corpuscular HGB Conc 33 gm/dL (32-36); Mean Corpuscular Hemoglobin 31 pg (26-34); Mean Corpuscular Volume 94 fL (80-100); Platelet Count* 200 K/uL (140-440); Red Blood Count 3.58 m/uL (4.00-5.20); White Blood Count* 6.54 K/uL (4.50-11.00)
[2024-08-04 13:55] LABS: Slide Review Reflex No
[2024-08-04 14:10] LABS: Aspartate Amino Transferase* 36 U/L (12-35); Creatinine* 0.7 mg/dL (0.5-1.5); Estimated Glomerular Filt Rate 112 ml/min
[2024-08-04 14:11] LABS: Alanine Aminotransferase* 30 U/L (4-35); Blood Urea Nitrogen* 15 mg/dL (5-24)
[2024-08-04] MEDS: NIFEdipine 30 MG TAB.ER.24 PO (14:22)
--- NOTE | 2024-08-04 16:08 | PM.OBLDTN ---
OB - Triage/Final Diagnosis Visit Information Time Seen by Provider: 13:00 Date Seen: 08/04/24 Date of evaluation: 08/04/24 Narrative: Blossom is a 39 year old 5 para 4014 POD#4 from repeat CD and bilateral salpingectomy. She is here today to do a we checked for her baby. She did mention to RN that she had a blood pressure of 160/90 at home. Did not retake her BP. She was thinking it was cuff malfunction and knowing she was going to come to the center the next day, she did not call the clinic. She takes her labetalol 500 mg BID consistently. She has a mild headache in the AM that goes away with the Ibuprofen and Tylenol she takes for incisional pain. Denies any persistent headache, vision changes, SOB, right upper quadrant/epigastric pain, or rapidly expanding edema. Physical exam: General: No acute distress Psych: Alert and oriented x4, full affect HEENT: Normocephalic, atraumatic Heart: Regular rate and rhythm, no murmur rub or gallop Lungs: Clear to auscultation bilaterally Abdomen: Soft, no tenderness, rebound, or guarding. Skin: No lesions or rashes Lower extremities: No edema or erythema Pelvic exam: Deferred CHTN r/o Pre-Eclampsia with SF - BP monitoring in the center showed persistent 150s/80s. Nifedipine 30 mg QD added. - Monitoring after Nifedipine 30mg QD showed BP in the 140s/60-70s. - Symptoms: Currently asymptomatic - Magnesium: Currently not indicated - IV antihypertensives: Currently not indicated - Pre-eclampsia labs on 08/04: Hgb 11.0 Plt 200 Cr 0.7 ALT 30 AST 36 (previous AST were wnl) - UOP: Voiding freely without issues Plan: - Discharged with new medication regimen: Labetalol 500 mg BID and Nifedipine 30 mg QD - She has a BP check on Tuesday. Advised patient to bring BP cuff to appointment to be calibrated but given her BP here, her cuff appears accurate. - Sent message to clinic RN to make sure patient get another set of Pre-E labs on Tuesday prior to her appointment - Strict return precautions given Evaluation Laboratory results: Laboratory Tests 08/04/24 Range/Units 13:45 WBC 6.54 (4.50-11.00) K/uL RBC 3.58 L (4.00-5.20) m/uL Hgb 11.0 L (12.0-16.0) gm/dL Hct 33.7 (33.0-51.0) % MCV 94 (80-100) fL MCH 31 (26-34) pg MCHC 33 (32-36) gm/dL Plt Count 200 (140-440) K/uL BUN 15 (5-24) mg/dL Creatinine 0.7 (0.5-1.5) mg/dL Estimated GFR 112 ml/min AST 36 H (12-35) U/L ALT 30 (4-35) U/L Vital signs: Vital Signs - 24 hr 08/04/24 13:18 08/04/24 13:30 08/04/24 13:33 Temperature 98.6 F Pulse Rate 71 64 Respiratory Rate 16 Blood Pressure 150/81 H 152/88 H 08/04/24 13:48 08/04/24 14:03 08/04/24 14:18 Temperature Pulse Rate 65 61 64 Respiratory Rate Blood Pressure 149/76 H 151/81 H 151/85 H 08/04/24 14:54 08/04/24 15:11 08/04/24 15:26 Temperature Pulse Rate 65 63 66 Respiratory Rate Blood Pressure 142/67 H 147/72 H 146/70 H 08/04/24 15:41 Temperature Pulse Rate 65 Respiratory Rate Blood Pressure 146/71 H
== END 2024-08-04 16:05 | disposition home or self-care (01) ==
LOC: OB OUT 13:15 → OB 13:15
PROVIDERS: PCP Student in an Organized Health Care Education/Training Program; Visit Provider Obstetrics & Gynecology
DX: I10 Essential (primary) hypertension (principal); Z39.1 Encounter for care and examination of lactating mother
CPT/HCPCS: 36415; 82565; 84450; 84460; 84520; 85027; G0463; A9270

== ENCOUNTER 2024-08-06 08:17 | Outpatient (CLI) | payer BC, SELFPAY ==
--- OUTSIDE RECORDS SUMMARY | 2024-08-06 08:22 | XMS_ITS | Encounter Summary ---
Author Organization [facility] Address [address] [place] [address] Care Team Providers Care Plug Overwrap Machine Tender Name Role Phone Fior Mejia MD Unavailable Bee Vicente MD Primary Care Provider [phone] Bee Vicente MD Unavailable [phone] Kimber Conte APRN [facility] Unavailable Flori De Luna MD Unavailable [phone] Kecia Segovia Primary Care Provider [phone] Reason for Visit * Reason Onset Date Comments MyChart Communication 08/11/2023 Encounter Details Date Type Department Care Team (Latest Contact Info) Description 08/11/2023 [facility] Medical Advice M [facility] [address] [phone] Kylah Trotter, RN MyChart Communication Social History [...] often do you attend chur ch or yarsanism services? Never 06/04/2022 Do you belong to [...] 3 06/04/2022 [facility] of Occupat ional [facility] - Occupational Stress Questionnaire Answer [...] 2 weeks. Agree with your overall recommendations ROTOR CREW CHIEF * Telephone Encounter - Klyah Trotter RN - 08/15/2023 8:05 AM CST SAB at home over the weekend 08/12/2308/17 scheduled for 1st OB US and visit - ok to cancel w instructions given? Or want to see her Tuesday? Kylah Trotter RN on 08/15/2023 at 8:07 AM ROTOR CREW CHIEF documented in this encounter Plan of Treatment Not on file documented as of this encounter Visit Diagnoses Not on filedocumented in this encounter Additional Health Concerns Assessment Noted Time PHQ-9 Depression Total Score: 8 06/04/20 10:15 AM CDT documented as of this encounter Care Teams Plug Overwrap Machine Tender Relationship Specialty [place] [address] [place] [address] PCP - General Family Medicine 04/16/22 03/16/24 Kecia Segovia PA [address] [place] [address] PCP - General 03/17/24 Fior Mejia MD [address] [place] [address] Assigned OBGYN Provider 02/07/22 [place] [address] [place] [address] Assigned PCP 04/17/22 Kimber Conte APRN [facility] [address] [place] [address] Mine Inspector Federal Midwives 01/09/24 01/09/24 Flori De Luna MD [address] [place] [address] Physician hub inventory specialist 01/09/24 documented as of this encounter
--- OUTSIDE RECORDS SUMMARY | 2024-08-06 08:22 | XMS_ITS | Encounter Summary ---
Author Organization [facility] Address [address] [place] [address] Care Team Providers Care Mechanical Artist Name Role Phone Bee Araiza APRN, CNP Primary Care Provide r Reason for Visit * Reason Comments Depression Registry Call 1 Call pt back in 2-5 days if no answer Encounter Details Date Type Department Care Team (Late st Contact Info) Description 04/09/2024 [facility]phone [facility] [address] [place] [address] Bee Araiza APRN, CNP [address] [place] [address] Depression Registry Call 1 (Call [...] Center (PSC), please warm transfercall to extension [phone] to discuss. If no answer at extension, re-route to CSS (Clinical Supervisor [employer]). Message to Patient/Caller: Contacted patient to complete PHQ9. Outcome of call: Left message. Krissy Bellamy LPN 04/09/2024, 1:41 PM documented in this encounter Plan of Treatment Not on file documented as of this encounter Visit Diagnoses Not on filedocumented in this encounter Care Teams Mechanical Artist Relationship Specialty Start Date End Date Bee Araiza, MACHINE MILKER, PUBLIC RELATIONS REPRESENTATIVE [address] [place] [address] PCP - General Nurse Practitioner 02/11/23 documented as of this encounter
--- OUTSIDE RECORDS SUMMARY | 2024-08-06 08:22 | XMS_ITS | Encounter Summary ---
Author Organization [facility] Address [address] [place] [address] Care Team Providers Care Documentation Specialist Name Role Phone Fior Mejia MD Unavailable Bee Vicente MD Primary Care Provider [phone] Bee Vicente MD Unavailable [phone] Kimber Conte APRN Unavailable Flori De Luna MD Unavailable [phone] Kecia Segovia Primary Care Provider [phone] Encounter Details Date Type Department Care Team (Late st Contact Info) Description 05/23/2023 [facility] Medical Advice [address] [address] Monie Wilks MA Social History [...] week 06/04/2022 How often do you attend [facility] or sikh services? Never 06/04/2022 Do you belong to any clubs o r organizations such as pentecostal groups, unions, fraternal or athletic groups, or [...] Answer Date Recorded PHQ-2 Score 3 06/04/2022 [facility] of Occupat ional [facility] - Occupational Stress Questionnaire Answer [...] place to sleep or slept in a usp (including now)? No 06/04/2022 Comments No Sex [...] documented as of this encounter Care Teams Documentation Specialist Relationship Specialty [place] [address] [place] [address] PCP - General Family Medicine 04/16/22 03/16/24 Kecia Segovia PA [address] [place] [address] PCP - General 03/17/24 Fior Mejia MD [address] [address] Assigned OBGYN Provider 02/07/22 [place] [address] [place] [address] Assigned PCP 04/17/22 Kimber Conte APRN CNM [facility] [address] [place] [address] Architectural Representative Midwives 01/09/24 01/09/24 Flori De Luna MD [address] [place] [address] Physician vending machine attendant 01/09/24 documented as of this encounter
--- OUTSIDE RECORDS SUMMARY | 2024-08-06 08:22 | XMS_ITS | Encounter Summary ---
Author Organization [place] Address [address] [place] [address] Care Team Providers Care Battalion Chief Name Role Phone [facility] Primary Care Provider Noel Dallas MD Unavailable Fior Mejia MD Unavailable Bee Vicente MD Primary Care Provider [phone] Bee Vicente MD Unavailable [phone] Kimber Conte APRN Unavailable Flori De Luna MD Unavailable [phone] Kecia Segovia Primary Care Provider [phone] Encounter Details Date Type Department Care Team (Late st Contact Info) Description 04/06/2022 [facility] [address] [place] [address] Ana To Social History Tobacco [...] documented as of this encounter Care Teams Battalion Chief Relationship Specialty Start Date End Date Clinic, [address] [address] PCP - General 07/17/19 04/15/22 [place] [address] [place] [address] PCP - General Family Medicine 04/16/22 03/16/24 Kecia Segovia PA [address] [place] [address] PCP - General 03/17/24 [place] [address] [place] [address] Assigned PCP 04/12/21 04/16/22 Fior Mejia MD [address] [address] Assigned OBGYN Provider 02/07/22 [place] [address] [place] [address] Assigned PCP 04/17/22 Kimber Conte APRN CNM [facility] [address] [place] [address] Smocking Machine Operator Midwives 01/09/24 01/09/24 Flori De Luna MD [address] [place] [address] Physician tow mate 01/09/24 documented as of this encounter
--- OUTSIDE RECORDS SUMMARY | 2024-08-06 08:22 | XMS_ITS | Encounter Summary ---
Author Organization [place] Address [address] [place] [address] Care Team Providers Care Head Doffer Name Role Phone Fior Mejia MD Unavailable Bee Vicente MD Primary Care Provider [phone] Bee Vicente MD Unavailable [phone] Flori De Luna MD Unavailable [phone] Kecia Segovia Primary Care Provider [phone] Reason for Visit * Reason Onset Date Comments MyChart Communication 01/31/2024 Encounter Details Date Type Department Care Team (Latest Contact Info) Description 01/31/2024 [facility] [address] [phone] Kylah Trotter, RN MyChart Communication Social History [...] How often do you attend chur or muslim services? Never 06/04/2022 Do you belong to any clubs o r organizations such as bahai groups, unions, fraternal or athletic groups, or [...] Answer Date Recorded PHQ-2 Score 3 06/04/2022 [facility] of Occupat ional [facility] - Occupational Stress Questionnaire Answer Date Recorded [...] documented as of this encounter Care Teams Head Doffer Relationship Specialty [place] [address] [place] [address] PCP - General Family Medicine 04/16/22 03/16/24 Kecia Segovia PA [address] [place] [address] PCP - General 03/17/24 Fior Mejia MD [address] [address] Assigned OBGYN Provider 02/07/22 [place] [address] [place] [address] Assigned PCP 04/17/22 Flori De Luna MD [address] [facility] [address] [place], [place] [address] Physician colorer machine 01/09/24 documented as of this encounter
--- OUTSIDE RECORDS SUMMARY | 2024-08-06 08:22 | XMS_ITS | Encounter Summary ---
Author Organization [place] Address [address] [place] [address] Care Team Providers Care Treatment Supervisor Name Role Phone Fior Mejia MD Unavailable Bee Vicente MD Primary Care Provider [phone] Bee Vicente MD Unavailable [phone] Kimber Conte APRN Unavailable Flori De Luna MD Unavailable [phone] Kecia Segovia Primary Care Provider [phone] Encounter Details Date Type Department Care Team (Late st Contact Info) Description 09/13/2023 [facility] Medical Advice [address] [address] Ana To Social History Tobacco [...] week 06/04/2022 How often do you attend [facility] or samaritan services? Never 06/04/2022 Do you belong to any clubs o r organizations such as methodist groups, unions, fraternal or athletic groups, or [...] Answer Date Recorded PHQ-2 Score 3 06/04/2022 [facility] of Occupat ional [place] - Occupational Stress Questionnaire Answer Date Recorded [...] to sleep or slept in a senior living (including now)? No 06/04/2022 Adolescent Education Answer [...] documented as of this encounter Care Teams Treatment Supervisor Relationship Specialty [place] [address] [place] [address] PCP - General Family Medicine 04/16/22 03/16/24 Kecia Segovia PA [address] [place] [address] PCP - General 03/17/24 Fior Mejia MD [address] [address] Assigned OBGYN Provider 02/07/22 [place] [address] [place] [address] Assigned PCP 04/17/22 Kimber Conte APRN CNM [facility] [address] [place] [address] Marketing Services Rep Midwives 01/09/24 01/09/24 Flori De Luna MD [address] [place] [address] Physician fairmont gold attendant 01/09/24 documented as of this encounter
--- OUTSIDE RECORDS SUMMARY | 2024-08-06 08:22 | XMS_ITS | Encounter Summary ---
Author Organization [place] Address [address] [place] [address] Care Team Providers Care Inspector Salvage Name Role Phone Fior Mejia MD Unavailable Bee Vicente MD Primary Care Provider [phone] Bee Vicente MD Unavailable [phone] Flori De Luna MD Unavailable [phone] Kecia Segovia Primary Care Provider [phone] Encounter Details Date Type Department Care Team (Late st Contact Info) Description 02/03/2024 [facility] Medical Advice [address] [address] Angelia Marte, INSPECTOR RUBBER STAMP DIE Social History Tobacco Use Types Packs/Day Years [...] often do you attend chur ch or alevism services? Never 06/04/2022 Do you belong to any clubs o r organizations such as scientologist groups, unions, fraternal or athletic groups, or [...] Answer Date Recorded PHQ-2 Score 3 06/04/2022 [facility] Occupat ional Health - Occupational Stress [...] documented as of this encounter Care Teams Inspector Salvage Relationship Specialty [place] [address] [place] [address] PCP - General Family Medicine 04/16/22 03/16/24 Kecia Segovia PA [address] [place] [address] PCP - General 03/17/24 Fior Mejia MD [address] [place] [address] Assigned OBGYN Provider 02/07/22 [place] [address] [place] [address] Assigned PCP 04/17/22 Flori De Luna MD [address] [place] [address] Physician stump shooter 01/09/24 documented as of this encounter
--- OUTSIDE RECORDS SUMMARY | 2024-08-06 08:22 | XMS_ITS | Encounter Summary ---
Author Organization [facility] Address [address] [place] [address] Care Team Providers Care Formation Testing Operator Name Role Phone Tiffanie Fitch APRN, CNP Primary Care Provide r Reason for Visit * Reason Comments Refill buPROPion (WELLBUTRI N XL) 150 MG 24 hour release tablet [Pharmacy Med Name: BUPROPION XL 150MG TABLETS (24 H)] Encounter Details Date Type Department Care Team (Late st Contact Info) Description 07/30/2024 [facility] [address] [place] [address] Tiffanie Fitch APRN, CNP [address] [place], [place] [id number] Refill (buPROPion (WELLBUTRIN XL) 150 MG 24 [...] CDT Further Assistance Needed on Refill from Hospital Receiving Clerk Patient is due for Qualifying Visit Medication [...] Next scheduled visit: None Age: 39 [facility] Embedded Refills, Reference: [id number], 07/30/2024 9:44:45 AM CDT, Baldev: ANG Refill Centralized Services - Primary Care [[id number]] ([id number]) documented in this encounter Plan of Treatment Not on file documented as of this encounter Visit Diagnoses Not on filedocumented in this encounter Care Teams Formation Testing Operator Relationship Specialty Start Date End Date Tiffanie Fitch, LEAFLET DISTRIBUTOR, PREPARATION CENTER COORDINATOR [address] [place] [address] PCP - General Nurse Practitioner 02/11/23 documented as of this encounter
--- OUTSIDE RECORDS SUMMARY | 2024-08-06 08:22 | XMS_ITS | Encounter Summary ---
Author Organization [facility] Address [address] [place] [address] Care Team Providers Care Beverage Host Name Role Phone Bee Fitch APRN, CNP Primary Care Provide r Reason for Visit * Reason Comments Refill buPROPion (WELLBUTRI N XL) 150 MG 24 hour release tablet [Pharmacy Med Name: BUPROPION XL 150MG TABLETS (24 H)] Encounter Details Date Type Department Care Team (Late st Contact Info) Description 05/06/2024 [facility] [address] [place] [address] Bee Fitch APRN, CNP [address] [place], [place] [id number] Refill (buPROPion (WELLBUTRIN XL) 150 MG 24 [...] need a visit for any further refills. [phone] to schedule. * Bee Fitch APRN, CNP - 05/07/2024 4:52 PM CDT Please let patient know the prescription was sent to their pharmacy and help schedule a medication follow up visit with carbon setter. There will be no further refills until [...] CDT Further Assistance Needed on Refill from Elementary School Teacher Patient is due for Qualifying Visit [...] Age: 39 [facility] [employer] Embedded Refills, Reference: [id number], 05/06/2024 9:51:32 AM CDT, Pool: ANG Refill Centralized Services - Primary Care [[id number]] ([id number]) documented in this encounter Plan of Treatment Not on file documented as of this encounter Visit Diagnoses Not on filedocumented in this encounter Care Teams Beverage Host Relationship Specialty Start Date End Date Bee Fitch, RAMIRO, BALL ROLLING MACHINE OPERATOR [address] [place] [address] PCP - General Nurse Practitioner 02/11/23 documented as of this encounter
--- OUTSIDE RECORDS SUMMARY | 2024-08-06 08:22 | XMS_ITS | Clinical Summary ---
Author Organization [facility] Address [address] [place] [address] Care Team Providers Care Champion Of Sustainable Design Name Role Phone Fior Mejia MD Unavailable Bee Vicente MD Unavailable [phone] Flori De Luna MD Unavailable [phone] Kecia Segovia Primary Care Provider [phone] Allergies No known active allergies Medications buPROPion [...] often do you attend chur ch or oriental orthodox services? Never 06/04/2022 Do you belong to any clubs o r organizations such as temple groups, unions, fraternal or athletic groups, or [...] Answer Date Recorded PHQ-2 Score 3 06/04/2022 [facility] of Occupat ional Health - Occupational [...] place to sleep or slept in a fdc (including now)? No 06/04/2022 Adolescent Education Answer [...] CDT Routine general medical examination at a [facility] care facility GYNECOLOGIC CYTOLOGY Routine 02/05/2022 [...] PM CDT) HIV 1&2 EXT Non-Reacti ve [facility] Blood 01/31/2024 2:49 PM CDT [facility] - 01/31/2024 2:49 PM CDT [facility] - External Lab Results us Provider Outside LAB - HIM EXTERNAL RESULT Final Result [facility] [address] [place] [address], [facility] [phone] * Hepatitis C (HIM External Result) (01/31/2024 2:49 PM CDT) Pathologist [facility] Hep C HIM See Scanned Document [facility] 01/31/2024 2:49 PM CDT [facility] - 01/31/2024 2:49 PM CDT [facility] - External Lab Results us Provider Outside LAB - HIM EXTERNAL RESULT Final Result Performing Organization Address City/[facility]/ZIP Co de Phone Number [facility] [address] [place] [address], [facility] [phone] * Glucose (External Result) (01/05/2024 10:48 PM CDT) [facility] Glucose (External) 109 60 - 115 mg/dL [facility] Blood 01/05/2024 10:4 8 PM CDT [facility] - 01/05/2024 10:48 PM CDT [facility] ED NOTES us Provider Outside LAB - HIM EXTERNAL RESULT Final Result Performing Organization Address City/[facility]/ZIP Co de Phone Number [facility] [address] [place] [address], [facility] [phone] * (ABNORMAL) Lipid panel reflex to direct [...] BLOOD ORDERABLES Fi nal Result [facility] [address] Lab (no room number, 1st floor of clinic) [place] [address], [place] [phone] * Pap thin layer screen with HPV [...] component of this testing was completed at [facility] 02/10/2022 9:42 AM CDT [facility] LAB[facility] Brushing CERVIX UTERI STRUCTURE / Unknown Non-blood Collection / Unknown 02/05/2022 3:37 PM CDT 02/05/2022 4:08 PM CDT us Fior NOLAN - OLVIN IBANEZ Final Result [facility] Specialty Lab [address] [facility], [address] [place] [address], [facility] [phone] * HPV High Risk Types DNA Cervical (02/05/2022 3:37 PM CDT) Other HR HPV Negative Negative 02/12/2022 1:55 PM CDT [facility] HPV16 DNA Negative Negative 02/12/2022 1:55 PM CDT [facility] HPV18 DNA Negative Negative 02/12/2022 1:55 PM CDT [facility] FINAL DIAGNOSIS This patient's sample is negative for HPV DNA. This test was developed and its performance characteristics determined by the [facility], Molecular Diagnostics Laboratory. It has not [...] Res ult [facility] Molecular Diagnostics [address] [facility], [address] [place] [address], [facility] [phone] * Non Invasive Test Cell Free DNA (07/25/2019 12:09 PM CDT) Lab Scanned Result NON INVAS DNA-Scanned [facility] Blood specimen (specimen) 07/25/2019 12:09 PM CDT us Atul Han MD LAB - BLOOD ORDERABLES Allyssa pierce Result MISYS from Last 3 Months or Most Recently Relevant to Health Maintenance Insurance BLUE PLUS BLUE PLUS Care Teams Champion Of Sustainable Design Relationship Specialty Start Date End Date Kecia [place] [address] [place] [address] PCP - General 03/17/24 Fior Mejia MD [address] [facility] [address] [place] [address] Assigned OBGYN Provider 02/07/22 [place] [address] [place] [address] Assigned PCP 04/17/22 Flori De Luna MD [address] [facility] [address] [place] [address] Physician yard brakeman 01/09/24
--- OUTSIDE RECORDS SUMMARY | 2024-08-06 08:22 | XMS_ITS | Encounter Summary ---
Author Organization [place] Address [address] [place] [address] Care Team Providers Care Rim Turning Machine Operator Name Role Phone Fior Mejia MD Unavailable Bee Vicente MD Primary Care Provider [phone] Bee Vicente MD Unavailable [phone] Kimber Conte APRN Unavailable Flori De Luna MD Unavailable [phone] Kecia Segovia Primary Care Provider [phone] Encounter Details Date Type Department Care Team (Late st Contact Info) Description 07/19/2023 [facility] [place] [address] [phone] Bee Hdz, RN Social History Tobacco Use [...] week 06/04/2022 How often do you attend [facility] or methodist services? Never 06/04/2022 Do you belong to any clubs o r organizations such as nondenominational groups, unions, fraternal or athletic groups, or [...] Answer Date Recorded PHQ-2 Score 3 06/04/2022 [facility] of Occupat ional Health - Occupational [...] documented as of this encounter Care Teams Rim Turning Machine Operator Relationship Specialty [place] [address] [place] [address] PCP - General Family Medicine 04/16/22 03/16/24 Kecia Segovia PA [address] [place] [address] PCP - General 03/17/24 Fior Mejia MD [address] [address] Assigned OBGYN Provider 02/07/22 [place] [address] [place] [address] Assigned PCP 04/17/22 Kimber Conte APRN CNM [facility] [address] [place] [address] Charter Coach Driver Midwives 01/09/24 01/09/24 Flori De Luna MD [address] [place] [address] Physician plant ecologist 01/09/24 documented as of this encounter
--- OUTSIDE RECORDS SUMMARY | 2024-08-06 08:22 | XMS_ITS | Encounter Summary ---
Author Organization [place] Address [address] [place] [address] Care Team Providers Care Lotus Notes Administrator Name Role Phone Fior Mejia MD Unavailable Bee Vicente MD Primary Care Provider [phone] Bee Vicente MD Unavailable [phone] Kimber Conte APRN Unavailable Flori De Luna MD Unavailable [phone] Kecia Segovia Primary Care Provider [phone] Reason for Referral * Consultation (Routine: Next available opening) - Closed Specialty Diagnoses / Procedures Referred By Kacie rachel Referred To Contact Otolaryngology Diagnoses Lipoma [place] [address] [place] [address] Phone: tel: fax: [facility] [address] Phone: tel: fax: Referral ID Status Reason Start Date Expiration Date Visits Re quested Visits Authorized [id number] Closed 06/17/2022 06/17/2023 1 1 Question Answer Reason for Referral: Other My Clinical Question Is: lipoma Scheduling Instructions: [facility] will call you to coordinate your care as prescribed by the provider. If you don? t hear from a veterans contact representative within 2 business days, please call [phone]. Comments Please be aware that coverage of these services is subject to the terms and limitations of your health insurance plan. Call member services at your health plan with any benefit or coverage questions. [facility] will call you to coordinate your care as prescribed by the provider. If you don? t hear from a veterans contact representative within 2 business days, please call [phone]. Encounter Details Date Type Department Care Team (Late st Contact Info) Description 06/16/2022 [facility] Medical Advice [facility] [address] [place] [address] [place] Vicente [place] [address] [place] [address] Lipoma of skin and subcutaneous tissue [...] often do you attend chur ch or pentecostalism services? Never 06/04/2022 Do you belong to any clubs o r organizations such as jainism groups, unions, fraternal or athletic groups, or [...] Answer Date Recorded PHQ-2 Score 3 06/04/2022 [facility] of Occupat ional [facility] - Occupational Stress Questionnaire Answer Date [...] in a correction (including now)? No 06/04/2022 Comments No Sex [...] Associated Diagnoses Orde r Schedule Adult ENT Nursing Assistant Referral Referral Routine: Next available opening Lipoma [...] documented as of this encounter Care Teams Lotus Notes Administrator Relationship Specialty [place] [address] [place] [address] PCP - General Family Medicine 04/16/22 03/16/24 Kecia Segovia PA [address] [place] [address] PCP - General 03/17/24 Fior Mejia MD [address] [place] [address] Assigned OBGYN Provider 02/07/22 [place] [address] [place] [address] Assigned PCP 04/17/22 Kimber Conte APRN [facility] [address] [place] [address] Director Supplier Quality Midwives 01/09/24 01/09/24 Flori De Luna MD [address] [place] [address] Physician manager aviation 01/09/24 documented as of this encounter
--- OUTSIDE RECORDS SUMMARY | 2024-08-06 08:22 | XMS_ITS | Referral Summary ---
Author Organization [facility] Address [address] [place] [address] Care Team Providers Care Paramedic Instructor Name Role Phone Fior Mejia MD Unavailable Bee Vicente MD Unavailable [phone] Flori De Luna MD Unavailable [phone] Kecia Segovia Primary Care Provider [phone] Allergies No known active allergies Medications buPROPion [...] How often do you attend chur or congregation services? Never 06/04/2022 Do you belong to any clubs o r organizations such as religious groups, unions, fraternal or athletic groups, or [...] PM CDT) HIV 1&2 EXT Non-Reacti ve [facility] Blood 01/31/2024 2:49 PM CDT [facility] - 01/31/2024 2:49 PM CDT [facility] - External Lab Results us Provider Outside LAB - HIM EXTERNAL RESULT Final Result [facility] [address] [phone] * Hepatitis C (HIM External Result) (01/31/2024 2:49 PM CDT) Hep C HIM See Scanned Document [facility] 01/31/2024 2:49 PM CDT [facility] - 01/31/2024 2:49 PM CDT [facility] - External Lab Results us Provider Outside LAB - HIM EXTERNAL RESULT Final Result Performing Organization Address City/[facility]/ZIP Co de Phone Number [facility] [address] [place] [address], [facility] [phone] * Glucose (External Result) (01/05/2024 10:48 PM CDT) [facility] Glucose (External) 109 60 - 115 mg/dL [facility] Blood 01/05/2024 10:4 8 PM CDT [facility] - 01/05/2024 10:48 PM CDT [facility] ED NOTES us Provider Outside LAB - [facility] EXTERNAL RESULT Final Result Performing Organization Address City/[facility]/ZIP Co de Phone Number [facility] [address] [place] [address], [facility] [phone] * (ABNORMAL) Lipid panel reflex to direct [...] BLOOD ORDERABLES Fi nal Result [facility] [address] Lab (no room number, 1st floor of clinic) [place] [address], [place] [phone] * Pap thin layer screen with HPV [...] component of this testing was completed at [facility] 02/10/2022 9:42 AM CDT [facility] Brushing CERVIX UTERI STRUCTURE / Unknown Non-blood Collection / Unknown 02/05/2022 3:37 PM CDT 02/05/2022 4:08 PM CDT Fior NOLAN - OLVIN IBANEZ Final Result [facility] Specialty Lab [address] [facility] [address] [facility], [address] [place] [address], [facility] [phone] * HPV High Risk Types DNA Cervical (02/05/2022 3:37 PM CDT) Other HR HPV Negative Negative 02/12/2022 1:55 PM CDT [facility] HPV16 DNA Negative Negative 02/12/2022 1:55 PM CDT [facility] HPV18 DNA Negative Negative 02/12/2022 1:55 PM CDT [facility] FINAL DIAGNOSIS This patient's sample is negative for HPV DNA. This test was developed and its performance characteristics determined by the [facility], Molecular Diagnostics Laboratory. It has not been [...] LAB - BLOOD ORDERABLES Final Res ult [facility] [address] [facility], [address] [id number], [facility] [phone] * Non Invasive Test Cell Free DNA (07/25/2019 12:09 PM CDT) Lab Scanned Result NON INVAS DNA-Scanned [facility] Blood specimen (specimen) 07/25/2019 12:09 PM CDT us Atul Han MD LAB - BLOOD ORDERABLES Allyssa pierce Result MISYS from Last 3 Months or Most Recently Relevant to Health Maintenance Insurance BLUE PLUS BLUE PLUS Care Teams Paramedic Instructor Relationship Specialty Start Date End Date Kecia [place] [address] [place] [address] PCP - General 03/17/24 Fior Mejia MD [address] [place] [address] [place] [address] Assigned OBGYN Provider 02/07/22 [place] [address] [place] [address] Assigned PCP 04/17/22 Flori De Luna MD [address] [facility] [address] [place] [address] Physician international account manager 01/09/24
--- OUTSIDE RECORDS SUMMARY | 2024-08-06 08:22 | XMS_ITS | Clinical Summary ---
Author Organization [facility] Address [address], [place] [address] Care Team Providers Care Director Of Alumni Relations Name Role Phone Bee Araiza APRN, CNP Primary Care Provide r Source Comments You are receiving this document as you are listed as the primary care provider,follow-up provider, or the patient has been referred to you for consultation.This is in compliance with the Medicare and[facility] EHR Incentive Program,which states Providers who transition their patient to another setting of careor provider of care or refers their patient to another provider of care shouldprovide summary care record for each transition of care or referral. [facility] Allerg[facility] No known active allergies Medications Medication [...] Type Department Care Team Description 07/30/2024 [facility]ill [facility] [address] [place] [address] Bee Araiza APRN, CNP Refill (buPROPion (WELLBUTRIN XL) 150 MG 24 hour release tablet [Pharmacy Med Name: BUPROPION XL 150MG TABLETS (24 H)]) 05/06/2024 [facility]ill [facility] [address] [place] [address] Bee Araiza, BARIATRIC SURGEON, MOTOR EXPERT Refill (buPROPion (WELLBUTRIN XL) 150 MG 24 hour release tablet [Pharmacy Med Name: BUPROPION XL 150MG TABLETS (24 H)]) from Last 3 Months Immunizations Name Administration Dates Next Due DTaP 11/09/2005 Hdcv - Rabies Vaccine 03/04/2014,02/11/2014 Influenza IIV4 (Quadrivalent ) 0.5mL (57391) 08/30/2022,10/06/2020,07/12/2019,2017,08/11/2017,08/19/2016,07/21/2015 Influenza, Unspecified Formulation 10/01/2002 Pfizer Bivalent [...] age to complete this topic Care Teams Director Of Alumni Relations Relationship Specialty Start Date End Date Bee Araiza, BARIATRIC SURGEON, MOTOR EXPERT [address] [place], [place] [id number] PCP - General Nurse Practitioner 02/11/23
--- OUTSIDE RECORDS SUMMARY | 2024-08-06 08:23 | XMS_ITS | Clinical Summary ---
Author Organization [facility] Address [address] [place] [address] Care Team Providers Care Software Validation Engineer Name Role Phone Unavailable Primary Care Provider Unavailabl e Source Comments Patient records contain information from all sites at [facility]. For routine questions regarding patient records, call [phone] during business hours, M-F 8:00 AM - 5:00 PM Central Time. Record requests for emergency care only can be directed to [phone] at any time.[facility] Medications labetaloL 200 mg tablet Take 2 tablets (400 mg total) by mouth 2 (two) times a day. 120 tablet 11 06/18/2024 Active Active Problems Problem Noted Date Diagnosed Date Hypertension Essential Primary 07/17/2024 Proteinuria 04/26/2024 Encounters Date Type Department Care Team Description 07/17/2024 1:00 PM CDT External Outreach Division of Nephrology and Hypertension in [place], [place] [address] [place] [phone] Janie Gomez M.D., Ph.D. Proteinuria (Primary Dx); Hypertension Essential Primary 06/18/2024 4:00 PM CDT External Outreach Division of Nephrology and Hypertension in [place], [place] [address] [place] [phone] Janie Gomez M.D., Ph.D. Proteinuria (Primary Dx); Hypertension Essential Primary 05/24/2024 Clinical Communication Division of Nephrology and Hypertension in [place], [place] [address] [place] [phone] Janie Gomez M.D., Ph.D. 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
--- OUTSIDE RECORDS SUMMARY | 2024-08-06 08:23 | XMS_ITS | Encounter Summary ---
Author Organization [facility] Address [address] [place] [address] Care Team Providers Care Clinical Fellow Name Role Phone Unavailable Primary Care Provider Unavailabl e Reason for Visit * Appointment Request (Routine) - Pending Review Specialty Diagnoses / Procedures Referred By Contac t Referred To Contact Nephrology and Hypertension Referral ID Status Reason Start Date Expiration Date V isits Requested Visits Authorized [id number] Pending Review 06/14/2024 06/14/2025 1 1 Encounter Details Date Type Department Care Team (Latest Contact Info) Description 06/18/2024 4:00 PM CDT External Outreach Division of Nephrology and Hypertension in [place], [place] [address] [place] [phone] Janie Gomez M.D., Ph.D. 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
--- OUTSIDE RECORDS SUMMARY | 2024-08-06 08:23 | XMS_ITS | Encounter Summary ---
Author Organization [facility] Address [address] [place] [address] Care Team Providers Care Programmer Analyst Consultant Name Role Phone [facility], [facility] Primary Care Provider Noel Dallas MD Unavailable Fior Mejia MD Unavailable Bee Vicente MD Primary Care Provider [phone] Bee Vicente MD Unavailable [phone] Kimber Conte APRN Unavailable Flori De Luna MD Unavailable [phone] Kecia Segovia Primary Care Provider [phone] Reason for Referral * Rehab Therapy Physical Therapy (Routine: Next available opening) - Closed Specialty Diagnoses / Procedures Referred By Contmaynor t Referred To Contact Physical Therapy [place] [address] [place] [address] Phone: tel: fax: [address] [address] Phone: tel: Referral ID Status Reason Start Date Expiration Date Visits Re quested Visits Authorized [id number] Closed 04/02/2022 04/02/2023 1 1 Question Answer Preferred Location: [facility] Scheduling Instructions: If you have not heard from the scheduling office within 2 business days, please call [phone] [facility], for [place] and [phone] for [place]. Course of Action Evaluation [...] office within 2 business days, please call [phone] [facility], for [place] and [phone] for [place]. Reason for Visit * Reason Onset Date Comments Referral 04/02/2022 Encounter Details Date Type Department Care Team (Late st Contact Info) Description 04/02/2022 MyC Medical Advice [facility] [address] [place] [phone] [place] [address] [place] [address] Referral Social History Tobacco Use [...] patients request for OBGYN referal Ana To/ Cutting And Splicing Supervisor documented in this encounter Plan of Treatment [...] documented as of this encounter Care Teams Programmer Analyst Consultant Relationship Specialty Start Date End Date [facility], [facility] [address] [place] [address] PCP - General 07/17/19 04/15/22 [place] [address] [place] [place] [address] PCP - General Family Medicine 04/16/22 03/16/24 Kecia Segovia PA [address] [place] [address] PCP - General 03/17/24 [place] [address] [place] [address] Assigned PCP 04/12/21 04/16/22 Fior Mejia MD [address] [place], [place] [phone] Assigned OBGYN Provider 02/07/22 [place] [address] [place] [place] [address] Assigned PCP 04/17/22 Kimber Conte APRN CNM [facility] [address] [place], [place] [phone] Production Painter Midwives 01/09/24 01/09/24 Flori De Luna MD [address] [place] [phone] Physician home sales service professional 01/09/24 documented as of this encounter
--- OUTSIDE RECORDS SUMMARY | 2024-08-06 08:23 | XMS_ITS | Clinical Summary ---
Author Organization [facility] Address [place], [place] [address] Care Team Providers Care Pile Driver Operator Helper Name Role Phone Clinic, [facility] Primary Care Pr ovider Allergies No [...] Department Care Team Description 07/31/2024 Orders Only [facility] Scanner 1 scan: (1-Ord) Manohar GUILLORY-SECTION GLOBAL, 07/31/2024 07/31/2024 Lab Requisition [facility] [phone] Iwona Garza MD 07/31/2024 Lab Requisition [facility] [phone] Iwona Garza MD 07/31/2024 Lab Requisition [facility] [phone] Iwona Garza MD 07/25/2024 Orders Only [facility] Scanner 1 scan: (1-Ord) INCOMING RECORDS-US, [facility], 07/25/2024 07/09/2024 Orders Only [facility] Scanner 1 scan: (1-Ord) [facility] OB BIOPHYSICAL PROFILE, 07/09/2024 07/03/2024 Orders Only [facility] Scanner 1 scan: (1-Ord) [facility] BIOPHYSICAL PROFILE, 07/03/2024 06/26/2024 Orders Only [facility] Scanner 1 scan: (1-Ord) [facility] OB BPP W/ OB F/U, 06/26/2024 from [...] CDT SCAN-ULTRASOUND REPORT 06/26/2024 12:00 AM CDT UNDERWRITING CLERK THIN PREP PAP SCREEN IMAGED Routine 03/23/2017 1:30 PM CDT from Last 3 Months or Most Recently Relevant to Health Maintenance Results * LAB TRACKING EVENT (07/31/2024 8:17 AM CDT) Other (Other) Client Collect / Unknown 07/31/2024 8:17 AM CDT 07/31/2024 2:12 PM CDT Iwona Garza MD LAB BILL ONLY [facility] [address] [place] [address], [place] * PATH TISSUE EXAM PLACENTA (07/31/2024 8:17 AM CDT) Case Report Pathology Report ?Case: [id number] ? Authorizing Provider: ??Iwona Garza MD ?? Collected: ? 07/31/2024 0817 ? Ordering Location: ? [facility] ?Received: ?07/31/2024 1758 ? Pathologist: ? Joseph Lee MD ? Specimens: ?? A) - Placenta ? B) - Bilateral Fallopian Tubes ? 08/03/2024 2:34 PM CDT [facility] Final Diagnosis A) [...] Negative for malignancy 08/03/2024 2:34 PM T [facility] Comment A. The patient's [...] history is recommended. 08/03/2024 2:34 PM T [facility] Clinical Information 39-year-old -0-1-4, delivery at 37 weeks 3 days, male infant 2800 g. Maternal hypertension. Sterilization. 08/03/2024 2:34 PM T [facility] Gross Description A) Received [...] section, there are no discrete lesions identified. Welding Specialist sections are submitted as follows: 1. ??Proximal [...] ??The longer tube is inked blue and maintenance representative sections are submitted as follows: 1. ??Cross-sections and entire fimbriated end of noninked tube 2. ??Cross-sections and entire fimbriated end of blue inked tube TRB 07/31/2024 08/03/2024 2:34 PM CDT [facility] Microscopic Description The final diagnosis is based on microscopic examination of appropriate sections of all specimens. 08/03/2024 2:34 PM CDT [facility] Additional Information Interpreted at [facility] - [address] [place], [place] [address] 08/03/2024 2:34 PM CDT [facility] Tissue SPECIMEN FROM PLACENTA / Unknown 07/31/2024 8:17 AM CDT 07/31/2024 5:58 PM CDT Tissue specimen (specimen) (Bilateral Fallopian Tubes) 07/31/2024 8:17 AM CDT 07/31/2024 5:58 PM CDT Iwona Garza MD PATHOLOGY/CYTOLOG Y [facility] [address] [place] [address], * SCAN-OPERATIVE/PROCEDURE REPORT (07/31/2024 12:00 AM CDT) Scanner OTHER * SCAN CORRESP-IMAGING (07/25/2024 12:00 AM CDT) Anatomical Region Laterality Modality Other Scanner OTHER * SCAN-ULTRASOUND REPORT (07/09/2024 12:00 AM CDT) Only the most recent of3 resultswithin the time period is included. Anatomical Region Laterality Modality Other Scanner OTHER * UNDERWRITING CLERK THIN PREP PAP SCREEN IMAGED (03/23/2017 1:30 PM CDT) Case Report Gynecologic Cytology Report ? Case: [id number] ? Authorizing Provider: ??Fior Mejia MD ?Collected: ? 03/23/2017 1330 ? First Screen: ?Lizzeth Ham ?Received: ?03/23/2017 1803 ? Specimen: ?UNDERWRITING CLERK ThinPrep Vial Screening, Cervical/Vaginal ? 03/30/2017 8:39 AM CDT [facility] ENTRAL LABORATORY INTERPRETATION/ RESULT NEGATIVE FOR INTRAEPITHELIAL LESION OR MALIGNANCY (NIL) (none) 03/30/2017 8:39 AM CDT [facility] IMEN ADEQUACY Satisfactory for evaluation Endocervical component present 03/30/2017 8:39 AM CDT [facility] EN[facility]AL LABORATORY HPV REQUEST HPV and PAP 03/30/2017 8:39 AM CDT [facility] Last Pap Date 03/30/2017 8:39 AM CDT [facility] Comment:2012 Last Pap Result NIL 7 8:39 AM CDT [facility] Menstrual Status 03/30/2017 8:39 AM CDT [facility] Automated Review Successful 03/30/2017 8:39 AM CDT [facility] Comment:Specimen processed s uccessfully by automated open end spinning operator device, [employer]Prep Imaging System, [employer] ANCILLARY TESTING UNDERWRITING CLERK HPV Ordered, Please see separate report 03/30/2017 8:39 AM CDT [facility] Note The pap test is a screening technique, not a diagnostic procedure. ??It is used primarily to screen for squamous cancers and precursor lesions. ??Published studies have shown that it is subject to both false negative and false positive results. ??The pap test should not be used as the sole means to diagnose or exclude pre-malignant and malignant lesions. Interpreted at [facility] (Central Lab, [facility], [facility], [facility], [facility], [facility], [facility]) 03/30/2017 8:39 AM T [facility] Other (Cervical/Vagina l) 03/23/2017 1:30 PM CDT 03/23/2017 6:03 PM CDT Fior Mejia MD PATHOLOGY/CYTOLOGY [facility] [address] [place] [address], from Last 3 Months or Most Recently Relevant to Health Maintenance Care Teams Pile Driver Operator Helper Relationship Specialty Start Date End Date Clinic, [facility] [address] [place] [address] PCP - General 05/21/24
--- OUTSIDE RECORDS SUMMARY | 2024-08-06 08:23 | XMS_ITS ---
Author Organization [facility] Address [address] [place] [address] Care Team Providers Care Supervisor Finishing Room Name Role Phone Unavailable Unavailable Unavailable Surgery Details Not on file Complications Check Surgery Details section. Procedure Estimated Blood Loss Check Surgery Details section. Procedure Findings Check Surgery Details section. Procedure Specimens Taken Check Surgery Details section.
--- OUTSIDE RECORDS SUMMARY | 2024-08-06 08:23 | XMS_ITS | Encounter Summary ---
Author Organization [facility] Address [address] [place] [address] Care Team Providers Care Globe Cleaner Name Role Phone Unavailable Primary Care Provider Unavailabl e Reason for Visit * Appointment Request (Routine) - Pending Review Specialty Diagnoses / Procedures Referred By Contac t Referred To Contact Nephrology and Hypertension Referral ID Status Reason Start Date Expiration Date V isits Requested Visits Authorized [id number] Pending Review 06/22/2024 06/22/2025 1 1 Encounter Details Date Type Department Care Team (Latest Contact Info) Description 07/17/2024 1:00 PM CDT External Outreach Division of Nephrology and Hypertension in [place], [place] [address] [place] [phone] Janie Gomez M.D., Ph.D. [address] [place] [phone] Proteinuria (Primary Dx); Hypertension Essential Primary Social History Tobacco Use Types Packs/Day Years Used Date Smoking Tobacco: Never Assessed Dental Answer Date Recorded Dental: Regular Dentist Unknown 03/15/20 24 Comments Unknown Sex and Gender Information Value Date Recorded Sex Assigned at Not on file Legal Sex Female 7:49 PM CRYSTAL SYRUP MAKER Gender Identity Not on file Sexual Orientation [...]
--- OUTSIDE RECORDS SUMMARY | 2024-08-06 08:23 | XMS_ITS | Referral Summary ---
Author Organization [facility] Address [address] [place] [address] Care Team Providers Care Vehicle Fare Collector Name Role Phone Unavailable Primary Care Provider Unavailabl e Source Comments Patient records contain information from all sites at [facility]. For routine questions regarding patient records, call [phone] during business hours, M-F 8:00 AM - 5:00 PM Central Time. Record requests for emergency care only can be directed to [phone] at any time.[facility] Encounters Date Type Department Care Team Description 07/17/2024 1:00 PM CDT External Outreach Division of Nephrology and Hypertension in [place], [place] [address] [place] [phone] Janie Gomez M.D., Ph.D. Proteinuria (Primary Dx); Hypertension Essential Primary 06/18/2024 4:00 PM CDT External Outreach Division of Nephrology and Hypertension in [address] [phone] Janie Gomez M.D., Ph.D. Proteinuria (Primary Dx); Hypertension Essential Primary 05/24/2024 Clinical Communication Division of Nephrology and Hypertension in [address] [phone] Janie Gomez M.D., Ph.D. from Last 3 [...] on file Legal Sex Female 7:49 PM OFFICE NURSE PRACTITIONER Gender Identity Not on file Sexual Orientation Not on file Plan of Treatment Not on file Insurance [facility] STAPLESFAUZIA [id number]
--- OUTSIDE RECORDS SUMMARY | 2024-08-06 08:23 | XMS_ITS | Encounter Summary ---
Author Organization [facility] Address [address] [place] [address] Care Team Providers Care Tugboat Operator Name Role Phone Unavailable Primary Care Provider Unavailabl e Encounter Details Date Type Department Care Team (Late st Contact Info) Description 05/24/2024 Clinical Communication Division of Nephrology and Hypertension in [place], [place] [address] [place] [phone] Janie Gomez M.D., Ph.D. [address] [place] [phone] Social History Tobacco Use Types Packs/Day Years Used Date Smoking Tobacco: Never Assessed Dental Answer Date Recorded Dental: Regular Dentist Unknown 03/15/20 24 Comments Unknown Sex and Gender Information Value Date Recorded Sex Assigned at Not on file Legal Sex Female 7:49 PM GERIATRIC PHYSICAL THERAPIST Gender Identity Not on file Sexual Orientation [...]
== END 2024-08-06 08:18 | disposition home or self-care (01) ==
PROVIDERS: PCP Student in an Organized Health Care Education/Training Program; Visit Provider Obstetrics & Gynecology
DX: I10 Essential (primary) hypertension (principal)
CPT/HCPCS: 82565; 84450; 84460

== ENCOUNTER 2024-09-11 12:05 | Outpatient (CLI) | payer BC, SELFPAY ==
--- OUTSIDE RECORDS SUMMARY | 2024-09-11 12:07 | XMS_ITS ---
Author Organization [facility] Address [address] [place] [address] Care Team Providers Care Chief Lock Operator Name Role Phone Unavailable Unavailable Unavailable Surgery Details Not on file Complications Check Surgery Details section. Procedure Estimated Blood Loss Check Surgery Details section. Procedure Findings Check Surgery Details section. Procedure Specimens Taken Check Surgery Details section.
--- OUTSIDE RECORDS SUMMARY | 2024-09-11 12:07 | XMS_ITS | Encounter Summary ---
Author Organization [facility] Address [address] [place] [address] Care Team Providers Care Stagecraft Teacher Name Role Phone Fior Mejia MD Unavailable Bee Vicente MD Primary Care Provider [phone] Bee Vicente MD Unavailable [phone] Kimber Conte APRN Unavailable Flori De Luna MD Unavailable [phone] Kecia Segovia Primary Care Provider [phone] Encounter Details Date Type Department Care Team (Late st Contact Info) Description 09/13/2023 [facility] [place] [address] [phone] Ana To Social History Tobacco [...] week 06/04/2022 How often do you attend [facility] or pentecostal services? Never 06/04/2022 Do you belong to any clubs o r organizations such as confucianist groups, unions, fraternal or athletic groups, or [...] Answer Date Recorded PHQ-2 Score 3 06/04/2022 [facility]at ional [facility] - Occupational Stress Questionnaire Answer Date [...] documented as of this encounter Care Teams Stagecraft Teacher Relationship Specialty [place] [address] [place] [address] PCP - General Family Medicine 04/16/22 03/16/24 Kecia Segovia PA [address] [place] [address] PCP - General 03/17/24 Fior Mejia MD [address] [address] Assigned OBGYN Provider 02/07/22 [place] [address] [place] [address] Assigned PCP 04/17/22 Kimber Conte APRN CNM [facility] [address] [place] [address] Accreditation Manager Midwives 01/09/24 01/09/24 Flori De Luna MD [address] [place] [address] Physician manufacturing director 01/09/24 documented as of this encounter
--- OUTSIDE RECORDS SUMMARY | 2024-09-11 12:07 | XMS_ITS | Referral Summary ---
Author Organization [facility] Address [address] [place] [address] Care Team Providers Care Grounds Worker Name Role Phone Fior Mejia MD Unavailable Bee Vicente MD Unavailable [phone] Flori De Luna MD Unavailable [phone] Kecia Segovia Primary Care Provider [phone] Allergies No known active allergies Medications buPROPion [...] How often do you attend chur or synagogue services? Never 06/04/2022 Do you belong to any clubs o r organizations such as denominational groups, unions, fraternal or athletic groups, or [...] Answer Date Recorded PHQ-2 Score 3 06/04/2022 [facility] - Occupational [...] 87 06/04/2022 10:24 AM CDT Temperature 36.7 C (98.1 F) 06/04/2022 10:24 AM CDT Respiratory Rate 14 06/04/2022 10:24 AM CDT [...] PM CDT) HIV 1&2 EXT Non-Reacti ve [facility] Blood 01/31/2024 2:49 PM CDT [facility] - 01/31/2024 2:49 PM CDT [facility] - External Lab Results us Provider Outside LAB - HIM EXTERNAL RESULT Final Result [facility] [address] [place] [address], [facility] [phone] * Hepatitis C (HIM External Result) (01/31/2024 2:49 PM CDT) Hep C HIM See Scanned Document [facility] 01/31/2024 2:49 PM CDT [facility] - 01/31/2024 2:49 PM CDT [facility] - External Lab Results us Provider Outside LAB - HIM EXTERNAL RESULT Final Result Performing Organization Address City/[facility]/ZIP Co de Phone Number [facility] [address] [place] [address], [facility] [phone] * Glucose (External Result) (01/05/2024 10:48 PM CDT) [facility] Glucose (External) 109 60 - 115 mg/dL [facility] Blood 01/05/2024 10:4 8 PM CDT [facility] - 01/05/2024 10:48 PM CDT [facility] ED NOTES us Provider Outside LAB - HIM EXTERNAL RESULT Final Result Performing Organization Address City/[facility]/ZIP Co de Phone Number [facility] [address] [place] [address], [facility] [phone] * (ABNORMAL) Lipid panel reflex to direct LDL Fasting (06/04/2022 11:12 AM CDT) [facility] Cholesterol 242(H) <200 mg/dL 06/05/2022 12:26 PM [...] - 06/05/2022 12:26 PM CDT Cholesterol Desirable: <200 mg/dL Triglycerides Normal: Less than 150 mg/dL Borderline High: 150-199 mg/dL High: 200-499 mg/dL Very High: Greater than or equal to 500 mg/dL Direct Measure HDL Female: Greater than or equal to 50 mg/dL Male: Greater than or equal to 40 mg/dL LDL Cholesterol Desirable: <100mg/dL Above Desirable: 100-129 mg/dL Borderline High: 130-159 mg/dL High: 160-189 mg/dL Very High: >= 190 mg/dL Non HDL Cholesterol Desirable: 130 mg/dL Above Desirable: 130-159 mg/dL Borderline High: 160-189 mg/dL High: 190-219 mg/dL Very High: Greater than or equal to 220 mg/dL us Bee Vicente MD LAB - BLOOD ORDERABLES Fi nal Result [facility] Lab [address] Lab (no room number, 1st floor of clinic) [place] [address], [facility] [phone] * Pap thin layer screen with HPV [...] of this testing was completed at [facility] 02/10/2022 9:42 AM CDT [facility] Brushing CERVIX UTERI STRUCTURE / Unknown Non-blood Collection / Unknown 02/05/2022 3:37 PM CDT 02/05/2022 4:08 PM CDT us Fior Mejia MD LAB - OLVIN AP Final Result [facility] Specialty Lab [address] [facility], [address] [place] [address], [facility] [phone] * HPV High Risk Types DNA Cervical (02/05/2022 3:37 PM CDT) Other HR HPV Negative Negative 02/12/2022 1:55 PM CDT [facility] HPV16 DNA Negative Negative 02/12/2022 1:55 PM CDT [facility] HPV18 DNA Negative Negative 02/12/2022 1:55 PM CDT [facility] FINAL DIAGNOSIS This patient's sample is negative for HPV DNA. This test was developed and its performance characteristics determined by the [facility], Molecular Diagnostics Laboratory. It has [...] Res ult [facility] Molecular Diagnostics [address] [facility], [address] [address], [facility] [phone] * Non Invasive Test Cell Free DNA (07/25/2019 12:09 PM CDT) Lab Scanned Result NON INVAS DNA-Scanned [facility] Blood specimen (specimen) 07/25/2019 12:09 PM CDT us Atul Han MD LAB - BLOOD ORDERABLES Allyssa pierce Result [facility] from Last 3 Months or Most Recently Relevant to Health Maintenance Insurance BLUE PLUS BLUE PLUS Care Teams Grounds Worker Relationship Specialty Start Date End Date Kecia Segovia PA [address] [place] [address] PCP - General 03/17/24 Fior Mejia MD [address] [place] [address] [place] [address] Assigned OBGYN Provider 02/07/22 [place] [address] [place] [address] Assigned PCP 04/17/22 Flori De Luna MD [address] [place] [address] Physician biomedical service engineer 01/09/24
--- OUTSIDE RECORDS SUMMARY | 2024-09-11 12:07 | XMS_ITS | Encounter Summary ---
Author Organization [facility] Address [address] [place] [address] Care Team Providers Care Rough Rounder Machine Name Role Phone [facility] Primary Care Provider Noel Dallas MD Unavailable Fior Mejia MD Unavailable Bee Vicente MD Primary Care Provider [phone] Bee Vicente MD Unavailable [phone] Kimber Conte APRN Unavailable Flori De Luna MD Unavailable [phone] Kecia Segovia Primary Care Provider [phone] Encounter Details Date Type Department Care Team (Late st Contact Info) Description 04/06/2022 [facility] [address] [place] [address] Ana To Social History Tobacco [...] documented as of this encounter Care Teams Rough Rounder Machine Relationship Specialty Start Date End Date Clinic, [address] [address] PCP - General 07/17/19 04/15/22 [place] [address] [place] [address] PCP - General Family Medicine 04/16/22 03/16/24 Kecia Segovia PA [address] [place] [address] PCP - General 03/17/24 [place] [address] [place] [address] Assigned PCP 04/12/21 04/16/22 Fior Mejia MD [address] [address] Assigned OBGYN Provider 02/07/22 [place] [address] [place] [address] Assigned PCP 04/17/22 Kimber Conte APRN CNM [facility] [address] [place] [address] Atmospheric Drier Tender Midwives 01/09/24 01/09/24 Flori De Luna MD [address] [place] [address] Physician rehabilitation counselor 01/09/24 documented as of this encounter
--- OUTSIDE RECORDS SUMMARY | 2024-09-11 12:07 | XMS_ITS | Encounter Summary ---
Author Organization [facility] Address [address] [place] [address] Care Team Providers Care Maxillofacial Pathology Name Role Phone Fior Mejia MD Unavailable Bee Vicente MD Primary Care Provider [phone] Bee Vicente MD Unavailable [phone] Kimber Conte APRN Unavailable Flori De Luna MD Unavailable [phone] Kecia Segovia Primary Care Provider [phone] Encounter Details Date Type Department Care Team (Late st Contact Info) Description 05/23/2023 [facility] Medical Advice [address] [address] Monie Wilks MA Social History [...] week 06/04/2022 How often do you attend [facility] or christian services? Never 06/04/2022 Do you [...] 06/04/2022 [facility] - Occupational Stress Questionnaire Answer Date [...] a senior living (including now)? No 06/04/2022 Comments No Sex [...] documented as of this encounter Care Teams Maxillofacial Pathology Relationship Specialty [place] [address] [place] [address] PCP - General Family Medicine 04/16/22 03/16/24 Kecia Segovia PA [address] [place] [address] PCP - General 03/17/24 Fior Mejia MD [address] [address] Assigned OBGYN Provider 02/07/22 [place] [address] [place] [address] Assigned PCP 04/17/22 Kimber Conte APRN CNM [facility] [address] [place] [address] Dialysis Clinical Manager Midwives 01/09/24 01/09/24 Flori De Luna MD [address] [place] [address] Physician commercial drafter 01/09/24 documented as of this encounter
--- OUTSIDE RECORDS SUMMARY | 2024-09-11 12:07 | XMS_ITS | Encounter Summary ---
Author Organization [facility] Address [address] [place] [address] Care Team Providers Care Electric Installer Name Role Phone Unavailable Primary Care Provider Unavailabl e Reason for Visit * Appointment Request (Routine) - Pending Review Specialty Diagnoses / Procedures Referred By Contac t Referred To Contact Nephrology and Hypertension Referral ID Status Reason Start Date Expiration Date V isits Requested Visits Authorized [id number] Pending Review 06/22/2024 06/22/2025 1 1 Encounter Details Date Type Department Care Team (Latest Contact Info) Description 07/17/2024 1:00 PM CDT External Outreach Division of Nephrology and Hypertension in [place], [place] [address] [place] [address] Janie Gomez M.D., Ph.D. 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
--- OUTSIDE RECORDS SUMMARY | 2024-09-11 12:07 | XMS_ITS | Encounter Summary ---
Author Organization [facility] Address [address] [place] [address] Care Team Providers Care Acting Manager Name Role Phone Fior Mejia MD Unavailable Bee Vicente MD Primary Care Provider [phone] Bee Vicente MD Unavailable [phone] Flori De Luna MD Unavailable [phone] Kecia Segovia Primary Care Provider [phone] Encounter Details Date Type Department Care Team (Late st Contact Info) Description 02/03/2024 [facility] Medical Advice [address] [address] Angelia Marte, EBD TEACHER Social History Tobacco Use Types Packs/Day Years [...] any clubs o r organizations such as tenriism groups, unions, fraternal or athletic groups, or [...] place to sleep or slept in a chcf (including now)? No 06/04/2022 Adolescent Education Answer [...] documented as of this encounter Care Teams Acting Manager Relationship Specialty [place] [address] [place] [address] PCP - General Family Medicine 04/16/22 03/16/24 Kecia Segovia PA [address] [place] [address] PCP - General 03/17/24 Fior Mejia MD [address] [place] [address] Assigned OBGYN Provider 02/07/22 [place] [address] [place] [address] Assigned PCP 04/17/22 Flori De Luna MD [address] [place] [address] Physician stone cutter 01/09/24 documented as of this encounter
--- OUTSIDE RECORDS SUMMARY | 2024-09-11 12:07 | XMS_ITS | Referral Summary ---
Author Organization [facility] Address [address] [place] [address] Care Team Providers Care Travel Accommodation Inspector Name Role Phone Unavailable Primary Care Provider Unavailabl e Source Comments Patient records contain information from all sites at [facility]. For routine questions regarding patient records, call [phone] during business hours, M-F 8:00 AM - 5:00 PM Central Time. Record requests for emergency care only can be directed to [phone] at any time.[facility] Encounters Date Type Department Care Team Description 07/17/2024 1:00 PM CDT External Outreach Division of Nephrology and Hypertension in [place], [place] [address] [place] [phone] Janie Gomez M.D., Ph.D. Proteinuria (Primary Dx); Hypertension Essential Primary 06/18/2024 4:00 PM CDT External Outreach Division of Nephrology and Hypertension in [place], [place] [address] [place] [address] Janie Gomez M.D., Ph.D. 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
--- OUTSIDE RECORDS SUMMARY | 2024-09-11 12:07 | XMS_ITS | Encounter Summary ---
Author Organization [facility] Address [address] [place] [address] Care Team Providers Care Business Area Director Name Role Phone [facility] Primary Care Provider Noel [place] MD Unavailable Fior Mejia MD Unavailable Bee Vicente MD Primary Care Provider [phone] Bee Vicente MD Unavailable [phone] Kimber Conte APRN Unavailable Flori De Luna MD Unavailable [phone] Kecia Segovia Primary Care Provider [phone] Reason for Referral * Rehab Therapy Physical Therapy (Routine: Next available opening) - Closed Specialty Diagnoses / Procedures Referred By Contmaynor t Referred To Contact Physical Therapy [place] [address] [place] [address] Phone: tel: fax: [address] [address] Phone: tel: Referral ID Status Reason Start Date Expiration Date Visits Re quested Visits Authorized [id number] Closed 04/02/2022 04/02/2023 1 1 Question Answer Preferred Location: [facility] Scheduling Instructions: If you have not heard from the scheduling office within 2 business days, please call [phone] for [facility], for [place] and [phone] for [facility]. Course of Action Evaluation and Treatment Adult [...] office within 2 business days, please call [phone] for [facility], for Sh[place]ha and [phone] for [place]. Reason for Visit * Reason Onset Date Comments Referral 04/02/2022 Encounter Details Date Type Department Care Team (Late st Contact Info) Description 04/02/2022 My[facility] Medical Advice [facility] [address] [place] [address] [place] [address] [place] [address] Referral Social History Tobacco Use [...] patients request for OBGYN referal Ana To/ Center Machine Set Up Operator documented in this encounter Plan of [...] documented as of this encounter Care Teams Business Area Director Relationship Specialty Start Date End Date [facility] [address] [place] [address] PCP - General 07/17/19 04/15/22 [place] [address] [place] [address] PCP - General Family Medicine 04/16/22 03/16/24 Kecia Segovia PA [address] [place] [address] PCP - General 03/17/24 [place] [address] [place] [address] Assigned PCP 04/12/21 04/16/22 Fior Mejia MD [address] [place], [place] [address] Assigned OBGYN Provider 02/07/22 [place] [address] [place] [address] Assigned PCP 04/17/22 Kimber Conte APRN CNM [facility] [address] [place], [place] [address] Waste Collection Driver Midwives 01/09/24 01/09/24 Flori De Luna MD [address] [place] [address] Physician hoe worker 01/09/24 documented as of this encounter
--- OUTSIDE RECORDS SUMMARY | 2024-09-11 12:07 | XMS_ITS | Clinical Summary ---
Author Organization [facility] Address [address], [place] [address] Care Team Providers Care Him Director Name Role Phone Bee Araiza APRN, CNP Primary Care Provide r Source Comments You are receiving this document as you are listed as the primary care provider,follow-up provider, or the patient has been referred to you for consultation.This is in compliance with the Medicare and[facility] Hospital[facility] EHR Incentive Program,which states Providers who transition their patient to another setting of careor provider of care or refers their patient to another provider of care shouldprovide summary care record for each transition of care or referral. [employer] Allergies No known active allergies Medications Medication Sig Dispensed Refills Start Date End Date Status sertraline (ZOLOFT) 100 MG tablet Take 1 Tablet (100 mg) by mouth daily. 90 Tablet 3 02/11/2023 Active buPROPion (WELLBUTRIN XL) 150 MG 24 hour release tablet take 2 tablets by mouth daily 180 Tablet 08/02/2024 Active Active Problems Problem Noted Date Diagnosed Date KODY (generalized anxiety disorder) 02/11/2023 Current mild episode of major depressive disorde r 02/11/2023 Encounters Date Type Department Care Team Description 07/30/2024 [facility] [address] [facility] [place], [place] [address] Bee Araiza APRN, CNP Refill (buPROPion (WELLBUTRIN XL) 150 MG 24 hour release tablet [Pharmacy Med Name: BUPROPION XL 150MG TABLETS (24 H)]) from Last 3 Months Immunizations Name Administration Dates Next Due DTaP 11/09/2005 Hdcv - Rabies Vaccine 03/04/2014,02/11/2014 Influenza IIV4 (Quadrivalent ) 0.5mL (97336) 08/30/2022,10/06/2020,07/12/2019,2017,08/11/2017,08/19/2016,07/21/2015 Influenza, Unspecified Formulation 10/01/2002 Pfizer Bivalent [...] age to complete this topic Care Teams Him Director Relationship Specialty Start Date End Date Bee Araiza APRN, FOREIGN STUDENT ADVISER TEACHER [address] [place] [address] PCP - General Nurse Practitioner 02/11/23
--- OUTSIDE RECORDS SUMMARY | 2024-09-11 12:07 | XMS_ITS | Encounter Summary ---
Author Organization [facility] Address [address] [place] [address] Care Team Providers Care Blood Bank Custodian Name Role Phone Tiffanie Fitch APRN, CNP Primary Care Provide r Reason for Visit * Reason Comments Refill buPROPion (WELLBUTRI N XL) 150 MG 24 hour release tablet [Pharmacy Med Name: BUPROPION XL 150MG TABLETS (24 H)] Encounter Details Date Type Department Care Team (Late st Contact Info) Description 07/30/2024 [facility] [address] [place] [address] Tiffanie Fitch APRN, CNP [address] [place], [place] [id number] Refill (buPROPion (WELLBUTRIN XL) 150 MG 24 [...] CDT Further Assistance Needed on Refill from Cardiac Catheterization Technician Patient is due for Qualifying Visit Medication [...] [facility] Embedded Refills, Reference: [id number], 07/30/2024 9:44:45 AM CDT, Baldev: ANG Refill Centralized Services - Primary Care [[id number]] ([id number]) documented in this encounter Plan of Treatment Not on file documented as of this encounter Visit Diagnoses Not on filedocumented in this encounter Care Teams Blood Bank Custodian Relationship Specialty Start Date End Date Tiffanie Fitch, GREEN WARE CASTER, CADASTRAL ENGINEER [address] [place] [address] PCP - General Nurse Practitioner 02/11/23 documented as of this encounter
--- OUTSIDE RECORDS SUMMARY | 2024-09-11 12:07 | XMS_ITS | Clinical Summary ---
Author Organization [facility] Address [address] [place] [address] Care Team Providers Care Oil Seal Assembler Name Role Phone Unavailable Primary Care Provider Unavailabl e Source Comments Patient records contain information from all sites at [facility]. For routine questions regarding patient records, call [phone] during business hours, M-F 8:00 AM - 5:00 PM Central Time. Record requests for emergency care only can be directed to [phone] at any time.[facility] Medications labetaloL 200 mg tablet Take 2 tablets (400 mg total) by mouth 2 (two) times a day. 120 tablet 11 06/18/2024 5 Active Active Problems Problem Noted Date Diagnosed Date Hypertension Essential Primary 07/17/2024 Proteinuria 04/26/2024 Encounters Date Type Department Care Team Description 07/17/2024 1:00 PM CDT External Outreach Division of Nephrology and Hypertension in [place], [place] [address] [place] [address] Janie Gomez M.D., Ph.D. Proteinuria (Primary Dx); Hypertension Essential Primary 06/18/2024 4:00 PM CDT External Outreach Division of Nephrology and Hypertension in [place], [place] [address] [place] [address] Janie Gomez M.D., Ph.D. 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 Gender Identity Not on file Sexual Orientation Not on file Plan of Treatment Health Maintenance Due Date Last Done Comments HIV Screening 1984 Hepatitis C Screening 1984 Mammogram 1984 Office Visit for Blood Pressure Check / Re-check 1984 Hepatitis B Vaccines (1 of 3 - 19+ 3-dose series) 2003 Depression Screening (Annual PHQ-2) 10/10/2023 COVID-19 Vaccine (6 - 2023- season) 2024 01/04/2024, 08/30/2022, 09/17/2021, Additional history exists Influenza Vaccine (#1) 2024 , 10/06/2020, 07/12/2019, Additional history exists Cervical/Vaginal Cancer Screening 02/05/2025 02/05/2022, 03/23/2017 Lipid (Cholesterol) Screening 06/04/2027 06/04/2022 DTaP,Tdap,and Td Vaccines (6 - Td or Tdap) 06/04/2034 06/04/2024, 11/13/2019, 08/11/2017, Additional history exists HPV Vaccines Aged Out No longer eligi ble based on patient's age to complete this topic IPV Vaccines Aged Out No longer eligi ble based on patient's age to complete this topic Pneumococcal vaccine (0-64 years) Aged Out No longer eligible based on patient's age to complete this topic Insurance BLUE CROSS BLUE SHIELD [place] [id number]
--- OUTSIDE RECORDS SUMMARY | 2024-09-11 12:07 | XMS_ITS | Encounter Summary ---
Author Organization [facility] Address [address] [place] [address] Care Team Providers Care Co Founder And Director Name Role Phone Unavailable Primary Care Provider Unavailabl e Reason for Visit * Appointment Request (Routine) - Pending Review Specialty Diagnoses / Procedures Referred By Contac t Referred To Contact Nephrology and Hypertension Referral ID Status Reason Start Date Expiration Date V isits Requested Visits Authorized [id number] Pending Review 06/14/2024 06/14/2025 1 1 Encounter Details Date Type Department Care Team (Latest Contact Info) Description 06/18/2024 4:00 PM CDT External Outreach Division of Nephrology and Hypertension in [place], [place] [address] [place] [phone] Janie Gomez M.D., Ph.D. 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
--- OUTSIDE RECORDS SUMMARY | 2024-09-11 12:07 | XMS_ITS | Clinical Summary ---
Author Organization [facility] Address [address] [place] [address] Care Team Providers Care Rn Gyn Name Role Phone Fior Mejia MD Unavailable Bee Vicente MD Unavailable [phone] Flori De Luna MD Unavailable [phone] Kecia Segovia Primary Care Provider [phone] Allergies No known active allergies Medications buPROPion [...] Diagnosed Date Pelvic pain in female 04/16/2022 KDOY (generalized anxiety disorder) 03/13/2021 Estimated Date of [...] often do you attend chur ch or gnosticist services? Never 06/04/2022 Do you belong to any clubs o r organizations such as hindu groups, unions, fraternal or athletic groups, or [...] place to sleep or slept in a half-way (including now)? No 06/04/2022 Adolescent Education Answer [...] CDT Routine general medical examination at a [facility] care facility GYNECOLOGIC CYTOLOGY Routine [...] PM CDT) HIV 1&2 EXT Non-Reacti ve [facility] Blood 01/31/2024 2:49 PM CDT [facility] - 01/31/2024 2:49 PM CDT [facility] - External Lab Results us Provider Outside LAB - [facility] EXTERNAL RESULT Final Result Performing Organization Address City/[facility]/ZIP Co de Phone Number [facility] [address] [place] [address], [facility] [phone] * Hepatitis C (HIM External Result) (01/31/2024 2:49 PM CDT) Pathologist [facility] Hep C HIM See Scanned Document [facility] 01/31/2024 2:49 PM CDT [facility] - 01/31/2024 2:49 PM CDT [facility] - External Lab Results us Provider Outside LAB - HIM EXTERNAL RESULT Final Result Performing Organization Address City/[facility]/ZIP Co de Phone Number [facility] [address] [place] [address], [facility] [phone] * Glucose (External Result) (01/05/2024 10:48 PM CDT) [facility] Glucose (External) 109 60 - 115 mg/dL [facility] Blood 01/05/2024 10:4 8 PM CDT [facility] - 01/05/2024 10:48 PM CDT [facility] ED NOTES us Provider Outside LAB - HIM EXTERNAL RESULT Final Result Performing Organization Address City/[facility]/ZIP Co de Phone Number [facility] [address] [place] [address], [facility] [phone] * (ABNORMAL) Lipid panel reflex to direct [...] LAB - BLOOD ORDERABLES Fi nal Result [facility] [address] Lab (no room number, 1st floor of clinic) [place] [address], [place] [phone] * Pap thin layer screen with HPV [...] component of this testing was completed at [facility] 02/10/2022 9:42 AM CDT [facility] Brushing CERVIX UTERI STRUCTURE / Unknown Non-blood Collection / Unknown 02/05/2022 3:37 PM CDT 02/05/2022 4:08 PM CDT us Fior Mejia MD LAB - OLVIN AP Final Result [facility] Specialty Lab [address] [facility], [address] [place] [address], [facility] [phone] * HPV High Risk Types DNA Cervical (02/05/2022 3:37 PM CDT) Other HR HPV Negative Negative 02/12/2022 1:55 PM CDT [facility] HPV16 DNA Negative Negative 02/12/2022 1:55 PM CDT [facility] HPV18 DNA Negative Negative 02/12/2022 1:55 PM CDT [facility] FINAL DIAGNOSIS This patient's sample is negative for HPV DNA. This test was developed and its performance characteristics determined by the [facility], Molecular Diagnostics Laboratory. It has [...] Res ult [facility] Molecular Diagnostics [address] [facility], [address] [id number], [facility] [phone] * Non Invasive Test Cell Free DNA (07/25/2019 12:09 PM CDT) Lab Scanned Result NON INVAS DNA-Scanned [facility] Blood specimen (specimen) 07/25/2019 12:09 PM CDT us Atul Han MD LAB - BLOOD ORDERABLES Allyssa pierce Result MISYS from Last 3 Months or Most Recently Relevant to Health Maintenance Insurance BLUE PLUS BLUE PLUS Care Teams Rn Gyn Relationship Specialty Start Date End Date Kecia [place] [address] PCP - General 03/17/24 Fior Mejia MD [address] [place] [address] [place] [address] Assigned OBGYN Provider 02/07/22 [place] [address] [place] [address] Assigned PCP 04/17/22 Flori De Luna MD [address] [address] Physician establishment guide 01/09/24
--- OUTSIDE RECORDS SUMMARY | 2024-09-11 12:07 | XMS_ITS | Encounter Summary ---
Author Organization [employer] Address [address] [place] [address] Care Team Providers Care Timber Estimator Name Role Phone Fior Mejia MD Unavailable Bee Vicente MD Primary Care Provider [phone] Bee Vicente MD Unavailable [phone] Kimber Conte APRN Unavailable Flori De Luna MD Unavailable [phone] Kecia Segovia Primary Care Provider [phone] Reason for Referral * Consultation (Routine: Next available opening) - Closed Specialty Diagnoses / Procedures Referred By Kacie rachel Referred To Contact Otolaryngology Diagnoses Lipoma [place] [address] [place] [address] Phone: tel: fax: [facility] [address] Phone: tel: fax: Referral ID Status Reason Start Date Expiration Date Visits Re quested Visits Authorized [id number] Closed 06/17/2022 06/17/2023 1 1 Question Answer Reason for Referral: Other My Clinical Question Is: lipoma Scheduling Instructions: [facility] will call you to coordinate your care as prescribed by the provider. If you don t hear from a inbound call center representative within 2 business days, please call [phone]. Comments Please be aware that coverage of these services is subject to the terms and limitations of your health insurance plan. Call member services at your health plan with any benefit or coverage questions. [facility] will call you to coordinate your care as prescribed by the provider. If you don t hear from a inbound call center representative within 2 business days, please call [phone]. Encounter Details Date Type Department Care Team (Late st Contact Info) Description 06/16/2022 MyC Medical Advice [facility] [address] [place] [id number] [place] [id number] [place] [address] Lipoma of skin and subcutaneous tissue [...] often do you attend chur ch or judaism services? Never 06/04/2022 Do you belong to any clubs o r organizations such as shinto groups, unions, fraternal or athletic groups, or [...] Answer Date Recorded PHQ-2 Score 3 06/04/2022 [facility] - Occupational Stress Questionnaire Answer Date [...] place to sleep or slept in a skilled nursing (including now)? No 06/04/2022 Comments No Sex [...] Associated Diagnoses Orde r Schedule Adult ENT Analytical Research Program Manager Referral Referral Routine: Next available opening Lipoma [...] documented as of this encounter Care Teams Timber Estimator Relationship Specialty [place] [address] [place] [address] PCP - General Family Medicine 04/16/22 03/16/24 Kecia Segovia PA [address] [place] [address] PCP - General 03/17/24 Fior Mejia MD [address] [place] [address] Assigned OBGYN Provider 02/07/22 [place] [address] [place] [address] Assigned PCP 04/17/22 Kimber Conte APRN [facility] [address] [place] [address] School Examiner Midwives 01/09/24 01/09/24 Flori De Luna MD [address] [place] [address] Physician repulping supervisor 01/09/24 documented as of this encounter
--- OUTSIDE RECORDS SUMMARY | 2024-09-11 12:07 | XMS_ITS | Encounter Summary ---
Author Organization [facility] Address [address] [place] [address] Care Team Providers Care Statistical Typist Name Role Phone Fior Mejia MD Unavailable Bee Vicente MD Primary Care Provider [phone] Bee Vicente MD Unavailable [phone] Folri De Luna MD Unavailable [phone] Kecia Segovia Primary Care Provider [phone] Reason for Visit * Reason Onset Date Comments MyChart Communication 01/31/2024 Encounter Details Date Type Department Care Team (Latest Contact Info) Description 01/31/2024 [facility] [address] [phone] Kylah Trotter, RN MyChart Communication Social History [...] How often do you attend chur or anabaptist services? Never 06/04/2022 Do you belong to [...] Answer Date Recorded PHQ-2 Score 3 06/04/2022 [facility] of Occupat ional [facility] - Occupational Stress Questionnaire Answer [...] in a prison (including now)? No 06/04/2022 Adolescent Education Answer [...] documented as of this encounter Care Teams Statistical Typist Relationship Specialty [place] [address] [place] [address] PCP - General Family Medicine 04/16/22 03/16/24 Kecia Segovia PA [address] [place] [address] PCP - General 03/17/24 Fior Mejia MD [address] [address] Assigned OBGYN Provider 02/07/22 [place] [address] [place] [address] Assigned PCP 04/17/22 Flori De Luna MD [address] [facility] [address] [place], [place] [address] Physician sprinkler irrigation equipment mechanic 01/09/24 documented as of this encounter
--- OUTSIDE RECORDS SUMMARY | 2024-09-11 12:07 | XMS_ITS | Encounter Summary ---
Author Organization [facility] Address [address] [place] [address] Care Team Providers Care Equipment Processor Name Role Phone Fior Mejia MD Unavailable Bee Vicente MD Primary Care Provider [phone] Bee Vicente MD Unavailable [phone] Kimber Conte APRN Unavailable Flori De Luna MD Unavailable [phone] Kecia Segovia Primary Care Provider [phone] Encounter Details Date Type Department Care Team (Late st Contact Info) Description 07/19/2023 [facility] Medical Advice [facility] [address] [phone] Bee Hdz, RN Social History Tobacco Use [...] you attend [facility] or religion services? Never 06/04/2022 Do you belong to [...] Answer Date Recorded PHQ-2 Score 3 06/04/2022 [facility] of Occupat ional Health - Occupational [...] documented as of this encounter Care Teams Equipment Processor Relationship Specialty [place] [address] [place] [address] PCP - General Family Medicine 04/16/22 03/16/24 Kecia Segovia PA [address] [place] [address] PCP - General 03/17/24 Fior Mejia MD [address] [address] Assigned OBGYN Provider 02/07/22 [place] [address] [place] [address] Assigned PCP 04/17/[address] [facility] [address] [place] [address] Out And Out Cigar Maker Hand Midwives 01/09/24 01/09/24 Flori De Luna MD [address] [place] [address] Physician wrapper leaf inspector 01/09/24 documented as of this encounter
--- OUTSIDE RECORDS SUMMARY | 2024-09-11 12:07 | XMS_ITS | Encounter Summary ---
Author Organization [facility] Address [address] [place] [address] Care Team Providers Care Software Configuration Specialist Name Role Phone Fior Mejia MD Unavailable Bee Vicente MD Primary Care Provider [phone] Bee Vicente MD Unavailable [phone] Kimber Conte APRN [facility] Unavailable Flori De Luna MD Unavailable [phone] Kecia Segovia Primary Care Provider [phone] Reason for Visit * Reason Onset Date Comments MyChart Communication 08/11/2023 Encounter Details Date Type Department Care Team (Latest Contact Info) Description 08/11/2023 [facility] [address] [phone] Kylah Trotter, RN MyChart Communication Social History [...] often do you attend chur ch or yarsani services? Never 06/04/2022 Do you belong to any clubs o r organizations such as anabaptist groups, unions, fraternal or athletic groups, or [...] Answer Date Recorded PHQ-2 Score 3 06/04/2022 [facility] of Occupat ional [facility] - Occupational Stress Questionnaire Answer Date [...] 2 weeks. Agree with your overall recommendations OLE CEMENTER * Telephone Encounter - Kylah Trotter RN - 08/15/2023 8:05 AM CST SAB at home over the weekend 08/12/2308/17 scheduled for 1st OB US and visit - ok to cancel w instructions given? Or want to see her Tuesday? Kylah Trotter RN on 08/15/2023 at 8:07 AM OLE CEMENTER documented in this encounter Plan of Treatment Not on file documented as of this encounter Visit Diagnoses Not on filedocumented in this encounter Additional Health Concerns Assessment Noted Time PHQ-9 Depression Total Score: 8 06/04/20 10:15 AM CDT documented as of this encounter Care Teams Software Configuration Specialist Relationship Specialty [place] [address] [address] PCP - General Family Medicine 04/16/22 03/16/24 Kecia Segovia PA [address] [place] [address] PCP - General 03/17/24 Fior Mejia MD [address] [place] [address] Assigned OBGYN Provider 02/07/22 [place] [address] [place] [address] Assigned PCP 04/17/22 Kimber Conte APRN [facility] [address] [place] [address] Licensed Loan Officer Midwives 01/09/24 01/09/24 Flori De Luna MD [address] [place] [address] Physician document control supervisor 01/09/24 documented as of this encounter
--- OUTSIDE RECORDS SUMMARY | 2024-09-11 12:08 | XMS_ITS | Clinical Summary ---
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 Name Role Phone [facility], [facility] Primary Care Pr ovider Allergies No known [...] Encounters Date Type Department Care Team Description 08/23/2024 Telephone [facility] [address] [place] [address] Kecia Segovia PA Referral (Nephrology referral ) 07/31/2024 Orders Only [facility] Scanner 1 scan: (1-Ord) [place], 07/31/2024 07/31/2024 Lab Requisition [facility] [phone] Iwona Garza MD 07/31/2024 Lab Requisition [facility] [phone] Greg, Iwona Dawson MD 07/31/2024 Lab Requisition [facility] [phone] Greg, Iwona Dawson MD 07/25/2024 Orders Only [facility] Scanner 1 scan: (1-Ord) INCOMING RECORDS-US, [facility], 07/25/2024 07/09/2024 Orders Only [facility] Scanner 1 scan: (1-Ord) [facility] OB BIOPHYSICAL PROFILE, 07/09/2024 07/03/2024 Orders Only [facility] Scanner 1 scan: (1-Ord) [facility] OB BIOPHYSICAL PROFILE, 07/03/2024 06/26/2024 Orders Only [facility] Scanner 1 scan: (1-Ord) [facility] OB BPP W/ OB F/U, [...] 2 01/04/2024 Social Connections Answer Date Recorded Do you often feel lonely or isolated from those around you? 0 01/04/2024 Financial Resource Strain Answer Date R ecorded Difficulty of Paying Living Expenses 3 01/04/2024 Difficulty of Paying Living Expenses Not on file 01/04/2024 Food Insecurity Answer Date Recorded Do you worry your food will run out before you are able to buy more? 1 01/04/2024 Transportation Needs Answer Date Record ed Does lack of transportation keep you from medica l appointments? 1 01/04/2024 Does lack of transportation keep you from work, meetings or getting things that you need? 1 01/04/2024 Housing Stability Answer Date Recorded [...] 80 03/12/2024 8:34 AM CDT Temperature 36.7 C (98 F) 03/12/2024 8:34 AM CDT Respiratory Rate - [...] CDT SCAN-ULTRASOUND REPORT 06/26/2024 12:00 AM CDT PUPPET MAKER THIN PREP PAP SCREEN IMAGED Routine 03/23/2017 1:30 PM CDT from Last 3 Months or Most Recently Relevant to Health Maintenance Results * LAB TRACKING EVENT (07/31/2024 8:17 AM CDT) Other (Other) Client Collect / Unknown 07/31/2024 8:17 AM CDT 07/31/2024 2:12 PM CDT Iwona Garza MD LAB BILL ONLY [facility] [address] [place] [address], * PATH TISSUE EXAM PLACENTA (07/31/2024 8:17 AM CDT) Case Report Pathology Report Case: [id number] Authorizing Provider: Iwona Garza MD Collected: 07/31/2024 0817 Ordering Location: [facility] Received: 07/31/2024 0645 Pathologist: Joseph Lee MD Specimens: A) - Placenta B) - Bilateral Fallopian Tubes 08/03/2024 2:34 PM CDT [facility] ENTRAL LABORATORY Final Diagnosis A) PLACENTA, DELIVERY: 1. Third trimester beverly placenta with the following characteristics: a. Weight: 481 grams (50th percentile for gestational age 37 weeks) b. Membranes with no significant histologic alterations c. Three vessel umbilical cord with no significant histologic alterations d. Placental disc without infarcts e. Placental disc without intervillous thrombi f. Chorionic villi hypermature for gestational age with increased syncytial knotting g. Decidual arteriopathy present g. Villous chorangiosis 2. Negative for chorioamnionitis, funisitis, and villitis B) BILATERAL FALLOPIAN TUBES, SALPINGECTOMY: 1. Portions of fimbriated fallopian tubes with complete lumina identified 2. Cystic Walthard rests, benign 3. Negative for malignancy 08/03/2024 2:34 PM CDT [facility] EN[facility]AL LABORATORY Comment A. The patient's [...] or increased villous vessel density (chorangiosis-see n here). Clinical correlation with the patient's diabetic history is recommended. 08/03/2024 2:34 PM CDT [facility] [employer] [facility] Clinical Information 39-year-old -0-1-4, delivery at 37 weeks 3 days, male infant 2800 g. Maternal hypertension. Sterilization. 08/03/2024 2:34 PM CDT [facility] Gross Description A) Received fresh labeled with the patient's name and placenta, is a 23 x 18 x 2 cm, 481 g oval placenta with 34 cm long trivascular umbilical cord inserting centrally 7.5 cm from the margin. No cord knots or hemorrhages are seen. Graff membranes insert marginally with a rupture point 8 cm from the margin. The surface has a purplish blue appearance with normally ramifying vessels. The maternal surfaces intact with small amount of loosely adherent blood clot. On cut section, there are no discrete lesions identified. Private Client Advisor sections are submitted as follows: 1. Proximal and distal umbilical cord 2. Membranes 3. Insertion point of cord 4, 5. Full-thickness sections through central portion of placenta TRB 07/31/2024 B) Received in formalin, labeled with the patient's name and right and left fallopian tubes, are 2 nonoriented fimbriated fallopian tubes measuring 10 x 0.8 cm and 11 x 0.8 cm. Both have smooth serosa and patent lumen throughout. The longer tube is inked blue and sales representative electric service sections are submitted as follows: 1. Cross-sections and entire fimbriated end of noninked tube 2. Cross-sections and entire fimbriated end of blue inked tube TRB 07/31/2024 08/03/2024 2:34 PM CDT [facility] Microscopic Description The final diagnosis is based on microscopic examination of appropriate sections of all specimens. 08/03/2024 2:34 PM T [facility] Additional Information Interpreted at [facility] [place] [facility] - [address] [address] 08/03/2024 2:34 PM T [facility] Tissue SPECIMEN FROM PLACENTA / Unknown 07/31/2024 8:17 AM CDT 07/31/2024 5:58 PM CDT Tissue specimen (specimen) (Bilateral Fallopian Tubes) 07/31/2024 8:17 AM CDT 07/31/2024 5:58 PM CDT Iwona Garza MD PATHOLOGY/CYTOLOG Y [facility] [address] [place] [address], [place] * SCAN-OPERATIVE/PROCEDURE REPORT (07/31/2024 12:00 AM CDT) Scanner OTHER * SCAN CORRESP-IMAGING (07/25/2024 12:00 AM CDT) Anatomical Region Laterality Modality Other Scanner OTHER * SCAN-ULTRASOUND REPORT (07/09/2024 12:00 AM CDT) Only the most recent of3 resultswithin the time period is included. Anatomical Region Laterality Modality Other Scanner OTHER * PUPPET MAKER THIN PREP PAP SCREEN IMAGED (03/23/2017 1:30 PM CDT) Case Report Gynecologic Cytology Report Case: [id number] Authorizing Provider: Fior Mejia MD Collected: 03/23/2017 1330 First Screen: Lizzeth Ham Received: 03/23/2017 1803 Specimen: PUPPET MAKER ThinPrep Vial Screening, Cervical/Vaginal 03/30/2017 8:39 AM CDT [employer] ENTRAL LABORATORY INTERPRETATION/ RESULT NEGATIVE FOR INTRAEPITHELIAL LESION OR MALIGNANCY (NIL) (none) 03/30/2017 8:39 AM CDT [facility] IMEN ADEQUACY Satisfactory for evaluation Endocervical component present 03/30/2017 8:39 AM CDT [facility] HPV REQUEST HPV and PAP 03/30/2017 8:39 AM CDT [facility] Last Pap Date 03/30/2017 8:39 AM CDT [facility] [employer] ENTRAL LABORATORY Comment:2012 Last Pap Result NIL 7 8:39 AM CDT [facility] LABORAT[facility] Menstrual Status 03/30/2017 8:39 AM CDT [facility] Automated Review Successful 03/30/2017 8:39 AM T [facility] ENTRSD LABORATORY Comment:Specimen processed s uccessfully by automated managed care nurse device, Kib[employer]Prep Imaging System, [employer] ANCILLARY TESTING PUPPET MAKER HPV Ordered, Please see separate report 03/30/2017 8:39 AM CDT [facility] Note The pap test is a screening technique, not a diagnostic procedure. It is used primarily to screen for squamous cancers and precursor lesions. Published studies have shown that it is subject to both false negative and false positive results. The pap test should not be used as the sole means to diagnose or exclude pre-malignant and malignant lesions. Interpreted at [facility] (Central Lab, [facility], [facility], [facility], [facility], [facility], [facility]) 03/30/2017 8:39 AM T [facility] Other (Cervical/Vagina l) 03/23/2017 1:30 PM CDT 03/23/2017 6:03 PM CDT Fior Mejia MD PATHOLOGY/[facility]TOLOGY [facility] [address] [place] [address], [place] from Last 3 Months or Most Recently Relevant to Health Maintenance Care Teams Cable Tool Driller Relationship Specialty Start Date End Date Clinic, [facility] [address] [place] [address] PCP - General 05/21/24
[2024-09-14 05:50] LABS: HPV Source Cervical; HPV, High Risk by TMA Not Detected
== END 2024-09-11 12:06 | disposition home or self-care (01) ==
PROVIDERS: PCP Student in an Organized Health Care Education/Training Program; Visit Provider Obstetrics & Gynecology
DX: Z12.4 Encounter for screening for malignant neoplasm of cervix (principal); Z39.2 Encounter for routine postpartum follow-up
CPT/HCPCS: 87624; 87625; 88141; 88142